=== PATIENT | female | born 1985 | race Caucasian/White ===

== ENCOUNTER 2023-09-12 08:09 | Outpatient (OUT) | payer OTHER, SELFPAY ==
--- NOTE | 2023-09-12 | XR_ITS ---
The [address] [address] Patient Name: ARY WRIGHT MRN: [id number] date: 1985 Sex: F Assigned Patient Location: Current Patient Location: Accession/Order Number: [id number] Exam Date: 09/12/2023 11:15 Report Date: 09/13/2023 05:08 At the request of: ELLIE THOMAS Procedure: XR foot CARL min 3V EXAMINATION: XR foot CARL min 3V HISTORY: BILATERAL FOOT PAIN COMPARISON: No relevant comparison available. FINDINGS: RIGHT FINDINGS: BONES: Prominent degenerative enthesopathic spurring at the Achilles tendon insertion into the calcaneus. Small plantar spur. No fracture, dislocation, bone lesion. 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 SOFT TISSUES: No visible soft tissue swelling. OTHER: Negative. LEFT FINDINGS: BONES: Prominent bunion formation. Small degenerative enthesophyte at Achilles tendon insertion into the calcaneus. 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 SOFT TISSUES: No visible soft tissue swelling. OTHER: Negative. XR/XR foot CARL min 3V IMPRESSION: RIGHT CONCLUSION: 1. Prominent degenerative enthesopathic spurring at Achilles tendon insertion which may account for patient's symptoms. LEFT CONCLUSION: 1. Prominent bunion formation. 2. Mild degenerative enthesopathic spurring. Electronically authenticated by: DIRK BEAVERS Date: 09/13/2023 05:08
== END 2023-09-12 08:10 | disposition home or self-care (01) ==
PROVIDERS: PCP Nurse Practitioner; Visit Provider Podiatrist Foot & Ankle Surgery
DX: M79.671 Pain in right foot (principal); M79.672 Pain in left foot; M77.8 Other enthesopathies, not elsewhere classified; M21.612 Bunion of left foot
CPT/HCPCS: 73630

== ENCOUNTER 2023-09-20 10:59 | Outpatient (OUT) | payer OTHER, SELFPAY ==
--- NOTE | 2023-09-20 11:01 | ECG_ITS ---
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
--- OUTSIDE RECORDS SUMMARY | 2023-09-20 11:09 | XMS_ITS | CCD ---
Author Organization [facility] Care Team Providers Care Ginseng Farmer Name Role Phone DR JOVAN PAT Consulting Unavailable ANGELY, DR JOVAN Caraballo Attending Unavailable PAT, DR JOVAN Caraballo Admitting Unavailable ANGELY, DR JOVAN Caraballo Primary Care Unavailable Mau Lacey. Primary Care Physician DONNA SCHROEDER Primary Care Unavailable MARIA FERNANDA CHRISTIANSEN Attending Unavailtrino MORRIS, BELKIS Attending Unavailable ANDREAS, BELKIS Referring Unavailable ALEXANDRE, DONNA Jordan Primary Care Unavailable ANDREAS, BELKIS Attending Unavailable MORRIS, BELKIS Referring Unavailable ALEXANDRE, DONNA Jordan Primary Care Unavailable Alexandre ROLLER INSPECTOR-MEDICAL CARE EVALUATION SPECIALIST, Donna Jordan Primary Care Provider DONNA SCHROEDER Referring Unavailable ALEXANDRE, DONNA Jordan Primary Care Unavailable JOVAN PAT Referring Unavailable ALEXANDRE, DONNA Jordan Primary Care Unavailable Alexandre, Donna Jordan Attending Unavailable Alexandre, Donna Jordan Admitting Unavailable Alexandre, Donna Jordan Attending Unavailable Alexandre, Donna Jordan Attending Unavailable Allergies Allergy Classification Reported Allergen(s) Allergy Type Date of Onset Reaction(s) Facility (3 sources) Codeine; Translations: [CODEINE] Drug Allergy 03-24-2023 [facility] Repository (1 source) Amoxicillin; Translations: [amoxicillin] Drug Allergy [facility] Repository Medications Current Medications Medication Drug Class(es) Dates Sig (Normalized) Sig (Original) 0.25 MG, 0.5 MG Dose 3 ML semaglutide 0.68 MG/ML Pen Injector (1 source) Start: 08-16-2022 inject 0.5 mg by subcutaneous injection every week semaglutide 2 mg/3 mL (0.25 mg or 0.5 mg dose) subcutaneous solution 0.5 mg, SubCutaneous, qWeek, # 3 mL, Refills(s) 0, Pharmacy: [facility]/pharmacy #[id number] Start Date: 08/16/22 Status: Ordered Albuterol (1 source) beta2-Adrenergic Agonist Start: 06-20-2022 take 2 puff(s) by inhalation every four hours Albuterol (Eqv-ProAir HFA) 2 puff(s), Inhalation, q4hr, Refill(s) 0 Start Date: 06/20/22 Status: Ordered calcium carbonate 1500 mg / cholecalciferol 0.01 mg oral tablet (1 source) Vitamin D Start: 03-30-2022 calcium carbonate-vitamin D3 (CALTRATE) 600 mg(1,500mg) -400 units per tablet hydroCHLOROthiazide 12.5 mg / losartan potassium 50 mg oral tablet (2 sources) Thiazide Diuretic, Angiotensin 2 Receptor Marie Start: 06-20-2022 take 1 tablet by mouth once daily hydrochlorothiazi de-losartan 12.5 mg-50 mg Tab 1 tab(s), Oral, Daily, Refill(s) 0 Start Date: 06/20/22 Status: Ordered take 1 tablet by arron th once in the morning losartan-hydroCHLOROthiazide (HYZAAR) 50 -12.5 mg per tablet Take 1 tablet by mouth in the morning. 0 Active levothyroxine sodium 0.1 mg oral tablet (2 sources) l-Thyroxine Start: 06-20-2022 take 1 tablet by mouth once daily levothyroxine 100 mcg (0.1 mg) Tab 100 mcg = 1 tab(s), Oral, Daily, Refills(s) 0 Start Date: 06/20/22 Status: Ordered take 1 tablet by mouth in the mo rning levothyroxine (SYNTHROID, LEVOTHROID) 100 MCG tablet Take 1 tablet (100 mcg total) by mouth in the morning. 0 Active PARoxetine hydrochloride 10 mg oral tablet (2 sources) Serotonin Reuptake Inhibitor Start: 06-21-2022 take 1 tablet by mouth once daily at bedtime PARoxetine (PAXIL) 10 mg tablet Indications: Anxiety and depression TAKE 1 TABLET BY MOUTH EVERYDAY AT BEDTIME 30 tablet 0 06/26/2022 Active 1 mg dose 1.5 ml semaglutide 1.34 mg/ml pen injector (2 sources) Start: 09-06-2022 inject 1 mg by subcutaneous injection every week Ozempic 2 mg/1.5 mL (1 mg dose) subcutaneous solution 1 mg, SubCutaneous, qWeek, 4 EA, Refill(s) 1, [facility]/pharmacy #[id number], 172.3, cm, 09/06/22 17:10:00 EDT, Height/Length Dosing, 92.2, kg, 09/06/22 17:10:00 EDT, Weight Dosing Start Date: 09/06/22 Status: Ordered semaglutide (OZE MPIC) 1 mg/dose (2 mg/1.5 mL) pen injector Inject 1 mg under the skin every 7 days. 0 Active Completed/Discontinued Medications Medication Drug Class(es) Dates Sig (Normalized) Sig (Original) 1 ml medroxyPROGESTERone acetate 150 mg/ml injection (4 sources) Progestin Start: 4 End: medroxyPROGESTERone (DEPO-PROVERA) injection 150 mg Start: 04-18-2023 End: 04-18-2023 medroxyPROGESTERone (DEPO-MI OVERA) injection 150 mg Start: 09-06-2022 inject 150 mg by int ramuscular injection every three months Depo-Provera 150mg/mL intramuscular suspension 150 mg, IntraMuscular, q3mo, Refills(s) 0 Start Date: 09/06/22 Status: Ordered medroxyPROGESTER one (DEPO-PROVERA) 150 mg/mL injection Inject 1 mL (150 mg total) into the appropriate muscle every 3 (three) months. 0 Active Problems Active Problems Problem Classification Problem Date Documented Date Episodic/Chronic Abdominal pain (1 source) Epigastric pain; Translations: [Epigastric pain] Onset: 03-24-2023 Episodic Acquired foot deformities (1 source) Talipes planus 06-23-2022 Episodic Contraceptive and procreative management (3 sources) Contraception ; Translations: [Encounter for surveillance of injectable contraceptive] Onset: 07-11-2023 04-18-2023 Episodic Diabetes mellitus without complication (2 sources) Type 2 diabetes mellitus 06-23-2022 Chronic Essential hypertension (1 source) Hypertensive disorder 06-23-2022 Chronic Headache; including migraine (1 source) Migraine 06-23-2022 Chronic Mood disorders (1 source) Reactive depression (situational) 06-23-2022 Chronic Nonspecific chest pain (3 sources) Chest pain, unspecified; Translations: [Chest pain] Onset: 03-24-2023 Episodic Other nervous system disorders (1 source) Carpal tunnel syndrome 06-23-2022 Chronic Other nervous system disorders (1 source) Cerebral cyst 06-23-2022 Chronic Other nutritional; endocrine; and metabolic disorders (1 source) Metabolic syndrome X 06-23-2022 Chronic Thyroid disorders (1 source) Hypothyroidism 06-23-2022 Chronic Unclassified (3 sources) CONTACT W/AND (SUSP) EXPOS COVID-19; Translations: [CONTACT W/AND (SUSP) EXPOS COVID-19] Onset: 10-31-2020 Unclassified (1 source) Patient encounter status 09-06-2022 Past or Other Problems Problem Classification Problem Date Documented Da te Episodic/Chronic Mood disorders (1 source) Mood disorders Onset: 11-13-2022 11-13-2022 Unclassified (1 source) CONTACT W/AND (SUSP) EXPOS COVID-19; Translations: [CONTACT W/AND (SUSP) EXPOS COVID-19] Onset: 10-12-2020 Unclassified (1 source) Onset: 11-13-2022 11-13-2022 Results Test Name Value Interpretation Reference Range Facility Ambulatory Visit Summaryon 0 08-31-2023 Ambulatory Visit Summary Ambulatory Visit Summary ARY WRIGHT :1985 Visit Date:08/31/2023 Ambulatory Visit Instructions Your Diagnosis BMI 36.0-36.9,adult Non-smoker Your Care Team Attending Physician - Donna Perla Primary Care Physician - Donna Perla This Is Your Medications List albuterol (Albuterol (Eqv-ProAir HFA) 90 mcg/inh inhalation aerosol) hydrochlorothiazide-los andi (hydrochlorothiazide-lo sartan 12.5 mg-50 mg Tab) levothyroxine (levothyroxine 100 mcg (0.1 mg) Tab) medroxyPROGESTERone (Depo-Provera 150mg/mL intramuscular suspension) paroxetine (paroxetine 10 mg Tab) semaglutide (Ozempic (1 mg dose) 4 mg/3 mL subcutaneous solution) semaglutide (Ozempic 2 mg/1.5 mL (1 mg dose) subcutaneous solution) semaglutide (semaglutide 2 mg/3 mL (0.25 mg or 0.5 mg dose) subcutaneous solution) Procedures Performed section. Discharge Vitals Heart Rate (Peripheral) 82 Respiratory Rate 18 Blood Pressure 128/88 Height 172.3 cm Height 68 in Weight 109.0 kg Weight 239.8 lb BMI 36.72 Medications What How Much When Why Instructions Unchanged albuterol (Albuterol (Eqv-ProAir HFA) 90 mcg/ inh inhalation aerosol) 2 Puffs Inhalation Every 4 hours Unchanged hydrochlorothiazide-los andi (hydrochlorothiazide-lo sartan 12.5 mg-50 mg Tab) 1 Tablets By Mouth Every day Unchanged levothyroxine (levothyroxine 100 mcg (0.1 mg) Tab) 1 Tablets By Mouth Every day Unchanged medroxyPROGESTERone (Depo-Provera 150mg/ mL intramuscular suspension) 150 Milligram Intramuscular Every 3 months Unchanged paroxetine (paroxetine 10 mg Tab) 1 Tablets By Mouth At bedtime Unchanged semaglutide (Ozempic (1 mg dose) 4 mg/ 3 mL subcutaneous solution) 1 Milligram Subcutaneous Every week Unchanged semaglutide (Ozempic 2 mg/ 1.5 mL (1 mg dose) subcutaneous solution) 1 Milligram Subcutaneous Every week Type 2 diabetes mellitus Metabolic syndrome BMI 31.0-31.9,adult Non-smoker Unchanged semaglutide (semaglutide 2 mg/ 3 mL (0.25 mg or 0.5 mg dose) subcutaneous solution) 0.5 Milligram Subcutaneous Every week Allergies No Known Allergies Problems Ongoing - Any problem that you are currently receiving treatment for. Carpal tunnel syndrome, bilateral Cerebral cysts Diabetes mellitus type II, controlled Hypertension Hypothyroidism Metabolic syndrome Migraines Pes planus Situational depression Type 2 diabetes mellitus Wellness examination Patient Survey You may receive a survey via text or e-mail asking about your office visit. Please share your experience with us by completing your survey. We appreciate your feedback and thank you for choosing us for your care. Normal [facility] Family Medicine Office/Clini c Noteon 08-31-2023 Family Medicine Office/Clinic Note Family Medicine Office/Clinic Note HPI Staff Ary is a 37 year old female presenting to discuss foot pain Pain characteristics: onset: 6 month Pain location: bilateral feet and heels right foot is worse, Arches and heels Intensity: 4/10 can go up to 6 or 7 out of 10 Medication used: Pain can be constant and intermittent , pain feels like stabbing, aching, pressure. Pt also has a bunion on left foot would like looked at, pt has never seen a book binder History of Present Illness pt presents today for bilateral foot pain Review of Systems PHQ Score Initial Depression Screen Score: 0 SCORE Physical Exam Vitals & Measurements HR: 82(Peripheral) RR: 18 BP: 128/88 HT: 68 in HT: 172.3 cm WT: 109.0 kg WT: 239.8 lb BMI: 36.72 General: alert, no acute distress ENMT: oral mucosa moist, no pharyngeal erythema or exudate Cardiovascular: regular rate and rhythm, normal peripheral perfusion Respiratory: Lungs CTA, respirations non labored Extremities: no deformity, no trauma Neurological: oriented x 4, LOC appropriate for age, CN II-XII intact, motor strength equal & normal bilaterally, speech normal bunion noted on left great toe laterally Assessment/Plan 1. Bunion of left foot (M21.612: Bunion of left foot) bunion is causing pain now. will send referral to book binder. Ordered: [facility] External Ambulatory Referral 2. Heel pain, bilateral (M79.671: Pain in right foot) both heels are painful especially when on her feet for a while. Ordered: [facility] External Ambulatory Referral 3. Pain in left foot (M79.672: Pain in left foot) bunion is now painful on left foot. has had it for years but now it's bothering her Ordered: [facility] External Ambulatory Referral 4. Diabetes mellitus type II, controlled (E11.9: Type 2 diabetes mellitus without complications) will increase ozempic Ordered: semaglutide, 1 mg, SubCutaneous, qWeek, 4 EA, Refill(s) 1, [id number], 172.3, cm, 09/06/22 17:10:00 EDT, Height/Length Dosing, 92.2, kg, 09/06/22 17:10:00 EDT, Weight Dosing [facility] External Ambulatory Referral 5. BMI 36.0-36.9,adult (Z68.36: Body mass index [BMI] 36.0-36.9, adult) BMI education given Ordered: [facility] External Ambulatory Referral 6. Non-smoker (Z78.9: Other specified health status) continue not smoking Ordered: semaglutide, 1 mg, SubCutaneous, qWeek, 4 EA, Refill(s) 1, [id number], 172.3, cm, 09/06/22 17:10:00 EDT, Height/Length Dosing, 92.2, kg, 09/06/22 17:10:00 EDT, Weight Dosing Orders: semaglutide, 1.7 mg, SubCutaneous, qWeek, # 12 EA, Refills(s) 1, Pharmacy: [facility]/pharmacy #[id number], 172.3, cm, 08/31/23 10:09:00 EDT, Height/Length Dosing, 109, kg, 08/31/23 10:09:00 EDT, Weight Dosing Follow-up No qualifying data available Problem List/Past Medical History Ongoing Bunion of left foot Carpal tunnel syndrome, bilateral Cerebral cysts Diabetes mellitus type II, controlled Heel pain, bilateral Hypertension Hypothyroidism Metabolic syndrome Migraines Pes planus Situational depression Type 2 diabetes mellitus Wellness examination Historical No qualifying data Procedure/Surgical History section. Medications Albuterol (Eqv-ProAir HFA) 90 mcg/inh inhalation aerosol, 2 puff(s), Inhalation, q4hr, 1 refills Depo-Provera 150mg/mL intramuscular suspension, 150 mg, IntraMuscular, q3mo hydrochlorothiazide-los andi 12.5 mg-50 mg Tab, 1 tab(s), Oral, Daily, 1 refills levothyroxine 100 mcg (0.1 mg) Tab, 100 mcg= 1 tab(s), Oral, Daily, 1 refills paroxetine 10 mg Tab, 10 mg= 1 tab(s), Oral, Bedtime, 3 refills semaglutide 1.7 mg/0.75 mL (1.7 mg dose) subcutaneous solution, 1.7 mg, SubCutaneous, qWeek, 1 refills Allergies No Known Allergies Social History Tobacco Never (less than 100 in lifetime) Tobacco Use:. Never Smokeless Tobacco Use:. Household tobacco concerns: No., 08/31/2023 Immunizations Vaccine Date Status Comments SARS-CoV-2 (COVID-19) mRNA-1273 vaccine 01/10/2021 Recorded 2022-09-06: TPVAL SARS-CoV-2 (COVID-19) mRNA-1273 vaccine 05/21/2020 Recorded 2022-09-06: TPV23 SARS-CoV-2 (COVID-19) mRNA-1273 vaccine 04/21/2020 Recorded 2022-09-06: TPV23 influenza virus vaccine, inactivated 01/25/2019 Recorded diphtheria/pertussis, acel/tetanus adult 03/17/2013 Recorded measles/mumps/rubella virus vaccine 03/17/2013 Recorded influenza virus vaccine, inactivated 03/17/2013 Recorded diphtheria/pertussis, acel/tetanus adult 06/19/2010 Recorded measles/mumps/rubella virus vaccine 04/14/1999 Recorded measles/mumps/rubella virus vaccine 09/30/1990 Recorded Hib, unspecified formulation 09/30/1990 Recorded Normal [facility] Comment on above: Result Comment: Elec tronically Signed By: Alexandre ESPINAL, Donna Jordan\.br\Date and Time Signed: 08/31/23 10:57 EDT Pre-Certification Formon Pre-Certification Form [id number] FF [facility] Pre-Certification Formon Pre-Certification Form [id number] IFF [facility] CBC AND AUTO DIFFon 03-24-19 ABSOLUTE BASOPHIL 0.1 X10E9/L Normal 0.0-0.2 [facility] Comment on above: Performed By: #### C LIMA CMP, 3040-3, 87389-1, 73329-9, 30236- 5, THYR #### [facility] ([id number]) [address] [place] [address] 51091 ABSOLUTE NEUTROPHIL 3.6 X10E9/L Normal 1.5-6.6 [facility] Comment on above: Performed By: #### C BCA CMP, 3040-3, 81745-8, 62212-0, 22662- 5, THYR #### [facility] ([id number]) [address] [place] [address] 88504 Basophils/100 WBC (Bld) 0.9 % Normal [facility] Comment on above: Performed By: #### C BCA, CMP, 3040-3, 59276-5, 33174-1, 87004- 5, THYR #### [facility] ([id number]) [address] [place] [address] 11665 Eosinophils (Bld) [#/Vol] 0.1 10*3/uL Normal 0.0-0.4 [facility] Comment on above: Performed By: #### C BCA, CMP, 3040-3, 18206-5, 55981-8, 44366- 5, THYR #### [facility] ([id number]) [address] [place] [address] 68370 Eosinophils/100 WBC (Bld) 2.5 % Normal [facility] Comment on above: Performed By: #### C BCA, CMP, 3040-3, 86848-6, 55245-8, 59486- 5, THYR #### [facility] ([id number]) [address] [place] [address] 30961 Erythrocyte distribution width (RBC) [Ratio] 12.7 % Normal 11.5-15.0 [facility] Comment on above: Performed By: #### C BCA, CMP, 3040-3, 67078-5, 63688-4, 73687- 5, THYR #### [facility] ([id number]) [address] [place] [address] 27380 Hematocrit (Bld) [Volume fraction] 43.1 % Normal 35-47 [facility] Comment on above: Performed By: #### C BCA, CMP, 3040-3, 08294-7, 66340-6, 82988- 5, THYR #### [facility] ([id number]) [address] [place] [address] 12936 Hemoglobin (Bld) [Mass/Vol] 14.7 g/dL Normal 11.7-15.5 [facility] Comment on above: Performed By: #### C BCA, CMP, 3040-3, 21455-3, 64656-7, 93120- 5, THYR #### [facility] ([id number]) [address] [place] [address] 27802 Lymphocytes (Bld) [#/Vol] 1.3 10*3/uL Normal 1.0-3.5 [facility] Comment on above: Performed By: #### C BCA, CMP, 3040-3, 01885-8, 82755-6, 80845- 5, THYR #### [facility] ([id number]) [address] [place] [address] 43110 Lymphocytes/100 WBC (Bld) 22.8 % Normal [facility] Comment on above: Performed By: #### C BCA, CMP, 3040-3, 86656-6, 34596-9, 74527- 5, THYR #### [facility] ([id number]) [address] [place] [address] 29268 MCH (RBC) [Entitic mass] 32.9 pg Normal 27-34 [facility] Comment on above: Performed By: #### C BCA, CMP, 3040-3, 27686-8, 09335-3, 56626- 5, THYR #### [facility] ([id number]) [address] [place] [address] 47457 MCHC (RBC) [Mass/Vol] 34.1 g/dL Normal 32-36 [facility] Comment on above: Performed By: #### C BCA, CMP, 3040-3, 71922-4, 75330-0, 27482- 5, THYR #### [facility] ([id number]) [address] [place] [address] 47924 MCV (RBC) [Entitic vol] 97 fL Normal 80-100 [facility] Comment on above: Performed By: #### C BCA, CMP, 3040-3, 06939-3, 58430-8, 85164- 5, THYR #### [facility] ([id number]) [address] [place] [address] 87390 Monocytes (Bld) [#/Vol] 0.6 10*3/uL Normal 0-0.9 [facility] Comment on above: Performed By: #### C BCA, CMP, 3040-3, 53098-9, 00984-9, 90890- 5, THYR #### [facility] ([id number]) [address] [place] [address] 48582 Monocytes/100 WBC (Bld) 10.4 % Normal [facility] Comment on above: Performed By: #### C BCA, CMP, 3040-3, 20438-6, 24954-4, 28073- 5, THYR #### [facility] ([id number]) [address] [place] [address] 59078 Neutrophils/100 WBC (Bld) 63.4 % Normal [facility] Comment on above: Performed By: #### C BCA, CMP, 3040-3, 36505-7, 61276-2, 83382- 5, THYR #### [facility] ([id number]) [address] [place] [address] 54150 Platelet mean volume (Bld) [Entitic vol] 8.1 fL Normal 7-12 [facility] Comment on above: Performed By: #### C BCA, CMP, 3040-3, 40305-7, 72710-1, 15135- 5, THYR #### [facility] ([id number]) [address] [place] [address] 63610 Platelets (Bld) [#/Vol] 269 10*3/uL Normal 150-450 [facility] Comment on above: Performed By: #### Amari BCA, CMP, 3040-3, 19478-5, 13278-0, 67688- 5, THYR #### [facility] ([id number]) [address] [place] [address] 98179 RBC COUNT 4.46 X10E12/L Normal 3.80-5.20 [facility] Comment on above: Performed By: #### C BCA, CMP, 3040-3, 22712-8, 82580-6, 83557- 5, THYR #### [facility] ([id number]) [address] [place] [address] 86533 WBC (Bld) [#/Vol] 5.7 10*3/uL Normal 4.0-11.0 [facility] Comment on above: Performed By: #### C BCA, CMP, 3040-3, 95440-8, 26745-5, 60742- 5, THYR #### [facility] ([id number]) [address] [place] [address] 47842 COMPREHENSIVE METABOLIC PANE Jd 03-24-2023 Albumin [Mass/Vol] 4.8 g/dL Normal 3.2-5.3 [facility] Comment on above: Performed By: #### C BCA, CMP, 3040-3, 08868-9, 74824-2, 58410- 5, THYR #### [facility] ([id number]) [address] [place] [address] 16976 ALP [Catalytic activity/Vol] 54 U/L Normal 39-130 [facility] Comment on above: Performed By: #### C BCA, CMP, 3040-3, 88588-9, 15235-6, 77393- 5, THYR #### [facility] ([id number]) [address] [place] [address] 33273 ALT [Catalytic activity/Vol] 24 U/L Normal 0-31 [facility] Comment on above: Performed By: #### C BCA, CMP, 3040-3, 39189-8, 14711-1, 01840- 5, THYR #### [facility] ([id number]) [address] [place] [address], [place] [address] Anion gap [Moles/Vol] 10 mmol/L Normal 5-15 [facility] Comment on above: Performed By: #### C BCA, CMP, 3040-3, 07316-1, 30166-0, 24629- 5, THYR #### [facility] ([id number]) [address] [place] [address] 68062 AST [Catalytic activity/Vol] 21 U/L Normal 0-41 [facility] Comment on above: Performed By: #### C BCA, CMP, 3040-3, 27899-0, 47667-4, 52864- 5, THYR #### [facility] ([id number]) [address] [place] [address] 66640 Bilirubin [Mass/Vol] 0.9 mg/dL Normal 0.3-1.2 [facility] Comment on above: Performed By: #### C BCA, CMP, 3040-3, 85303-7, 07011-1, 63579- 5, THYR #### [facility] ([id number]) [address] [place] [address] 56112 Calcium [Mass/Vol] 9.0 mg/dL Normal 8.5-10.5 [facility] Comment on above: Performed By: #### C BCA, CMP, 3040-3, 48788-7, 38996-5, 68232- 5, THYR #### [facility] ([id number]) [address] [place] [address] 73148 Chloride [Moles/Vol] 106 mmol/L Normal 98-109 [facility] Comment on above: Performed By: #### C BCA, CMP, 3040-3, 20055-1, 85170-3, 93565- 5, THYR #### [facility] ([id number]) [address] [place] [address] 78026 CO2 [Moles/Vol] 23 mmol/L Normal 22-32 [facility] Comment on above: Performed By: #### C BCA, CMP, 3040-3, 28834-7, 62339-5, 18492- 5, THYR #### [facility] ([id number]) [address] [place] [address] 41242 Creatinine [Mass/Vol] 0.87 mg/dL Normal 0.40-1.00 [facility] Comment on above: Result Comment: METH OD TRACEABLE TO IDMS STANDARD Performed By: #### C BCA, CMP, 3040-3, 95785-5, 60454-2, 98969-6, THYR #### [facility] ([id number]) [address] [place] [address] 50727 GFR/1.73 sq M.predicted among non-blacks MDRD (S/P/Bld) [Vol rate/Area] 89 mL/min/{1.73_m2} Normal >59 [facility] Comment on above: Result Comment: Reported eGFR is based on the CKD-EPI 2020 equation that does not use a race coefficient. Performed By: #### C BCA, CMP, 3040-3, 00176-8, 69109-8, 73559-2, THYR #### [facility] ([id number]) [address] [place] [address] 82557 Glucose [Mass/Vol] 105 mg/dL High 65-99 [facility] Comment on above: Performed By: #### C BCA, CMP, 3040-3, 59752-2, 95320-6, 38266- 5, THYR #### [facility] ([id number]) [address] [place] [address] 81095 Potassium [Moles/Vol] 3.8 mmol/L Normal 3.5-5.0 [facility] Comment on above: Performed By: #### C BCA, CMP, 3040-3, 93018-3, 47082-1, 52136- 5, THYR #### [facility] ([id number]) [address] [place] [address] 05888 Protein [Mass/Vol] 7.7 g/dL Normal 6.0-8.0 [facility] Comment on above: Performed By: #### C BCA, CMP, 3040-3, 89371-6, 50616-6, 86310- 5, THYR #### [facility] ([id number]) [address] [place] [address] 65778 Sodium [Moles/Vol] 139 mmol/L Normal 134-146 [facility] Comment on above: Performed By: #### C BCA, CMP, 3040-3, 43967-8, 04629-5, 73862- 5, THYR #### [facility] ([id number]) [address] [place] [address] 52333 Urea nitrogen [Mass/Vol] 12 mg/dL Normal 5-23 [facility] Comment on above: Performed By: #### C BCA, CMP, 3040-3, 75727-0, 05736-8, 31262- 5, THYR #### [facility] ([id number]) [address] [place] [address] ABDOMEN AND PELVIS W CONT on 03-24-2023 CT ABDOMEN AND PELVIS W CONT CT ABDOMEN AND PELVIS W CONT CT ABDOMEN AND PELVIS HISTORY: Epigastric pain COMPARISON STUDY: CT 02/06/2012. TECHNIQUE: CT scan of the abdomen and pelvis performed with IV no oral contrast. 100 mL of Omnipaque 300 was injected intravenously without complication. Coronal and sagittal reformats generated and reviewed. FINDINGS: LOWER THORAX: Unremarkable. HEPATOBILIARY: Slight focal fatty changes are noted anteriorly near the fissure for the falciform ligament, no suspicious hepatic mass. No biliary ductal dilatation. Gallbladder is normal. SPLEEN: Unremarkable. PANCREAS: No focal masses or ductal dilatation. ADRENALS: No adrenal nodules. KIDNEYS/URETERS: No collecting system dilatation, stones, or solid mass lesions. GI TRACT: No bowel obstruction. What appears to be very tiny appendix is normal. Colonic diverticulosis without inflammatory change. PELVIC ORGANS/BLADDER: Unremarkable. PERITONEUM/RETROPERITON EUM: No free air or fluid. LYMPH NODES: No enlarged lymph nodes. VESSELS: No abdominal aortic aneurysm. BONES AND SOFT TISSUES: No suspicious osseous lesion. IMPRESSION: 1. No acute abnormality All CT scans at this facility use dose modulation, iterative reconstruction, and/or weight based dosing when appropriate to reduce radiation dose to as low as reasonably achievable. Finalized by Jax Mitchell MD on 03/24/2023 11:09 AM Normal [facility] Fibrin D-dimer DDU (PPP) [Ma ss/Vol]on 03-24-2023 D DIMER <150 Normal <255 [facility] Comment on above: Result Comment: Results <255 ng/mL DDU: The presence of a VTE can safely be excluded with a negative D-Dimer result and Wells score. A negative result doesn't exclude the possibility of DIC. The test be repeated along with other diagnostic tests if the patient's symptoms persist or worsen. [email or web address] Performed By: #### C JORGE AMATO, 3040-3, 06161-3, 92107-8, 72143-5, THYR #### [facility] ([id number]) [address] [place] [address] HCG ( test) Ql (U)o n 03-24-2023 Beta HCG ( test) Ql (U) Negative Normal NEG [facility] Comment on above: Performed By: #### C JORGE AMATO, 3040-3, 94375-1, 83545-3, 58468- 5, THYR #### [facility] ([id number]) [address] [place] [address] LIPASEon 03-24-2023 Lipase [Catalytic activity/Vol] 44 U/L High 17-40 [facility] Comment on above: Performed By: #### C BCA, CMP, 3040-3, 83168-2, 44467-5, 77816- 5, THYR #### [facility] ([id number]) [address] [place] [address] MAGNESIUMon 03-24-2023 Magnesium [Mass/Vol] 2.1 mg/dL Normal 1.8-2.6 [facility] Comment on above: Performed By: #### C BCA, CMP, 3040-3, 39035-9, 01400-6, 00798- 5, THYR #### [facility] ([id number]) [address] [place] [address] 795[address] THYROID PROFILEon 03-24-2023 Free T4 [Mass/Vol] 0.88 ng/dL Normal 0.61-1.60 [facility] Comment on above: Performed By: #### C BCA, CMP, 3040-3, 80326-9, 94025-1, 46756- 5, THYR #### [facility] ([id number]) [address] [place] [address]508 TSH 1.29 uIU/mL Normal 0.49-4.67 [facility] Comment on above: Performed By: #### C BCA, CMP, 3040-3, 71770-6, 42607-1, 35165- 5, THYR #### [facility] ([id number]) [address] [place] [address] 46942 TROPONIN Ion 03-24-2023 Troponin I.cardiac [Mass/Vol] ng/mL Normal 0.00-0.04 [facility] Comment on above: Performed By: #### C BCA, CMP, 3040-3, 60878-7, 32436-5, 97383- 5, THYR #### [facility] ([id number]) [address] [place] [address]9766 URN MACROSCOPIC NURon 2023 BILIRUBIN ANNE Negative Normal NEG [facility] Comment on above: Performed By: #### N UM #### [facility] ([id number]) [address] [place] [address], [place] [address] BLOOD/HGB ANNE Negative Normal NEG [facility] Comment on above: Performed By: #### N UM #### [facility] ([id number]) [address] [place] [address], [place] [address] GLUCOSE ANNE Negative Normal NEG [facility] Comment on above: Performed By: #### N UM #### [facility] ([id number]) [address] [place] [address], [place] [address] KETONES ANNE Negative Normal NEG [facility] Comment on above: Performed By: #### N UM #### [facility] ([id number]) [address] [place] [address] [place] [address] LEUKOCYTE ESTERASE ANNE Negative Normal NEG [facility] Comment on above: Performed By: #### N UM #### [facility] ([id number]) [address] [place] [address], [place] [address] NITRITE ANNE Negative Normal NEG [facility] Comment on above: Performed By: #### N UM #### [facility] ([id number]) [address] [place] [address] [place] [address] PH ANNE 5.5 Normal 5.0-8.5 [facility] Comment on above: Performed By: #### N UM #### [facility] ([id number]) [address] [place] [address] [place] [address] PROTEIN ANNE Negative Normal NEG [facility] Comment on above: Performed By: #### N UM #### [facility] ([id number]) [address] [place] [address], [place] [address] SPECIFIC GRAVITY ANNE 1.010 Normal 1.003-1.035 [facility] Comment on above: Performed By: #### N UM #### [facility] ([id number]) [address] [facility], [place] [address] UROBILINOGEN ANNE 0.2 eu/dL Normal <1.[address] [facility] Comment on above: Performed By: #### N #### [facility] ([id number]) [address] [facility], [place] [address] XR CHEST 1 VWon 03-24-2023 XR CHEST 1 VW XR CHEST 1 VW XR CHEST 1 VW: 03/24/2023 10:34 AM Clinical: Chest pain for one week. Upright portable chest is compared with 03/05/2017. Exam limited by low lung volumes. Heart size is normal. No acute consolidation, large effusion, or pneumothorax. IMPRESSION: * No acute disease to limits of this portable exam. Finalized by Mario Pinto MD on 03/24/2023 10:39 AM Normal [facility] Reminderson 09-08-2022 Reminders - From: Donna Perla To: [facility] - Clinical; Sent: 09/08/2022 07:38:15 EDT Show up: 09/08/2022 07:38:00 EDT Subject: Ambulatory Reminder Due Date/Time: 09/09/2022 07:37:00 EDT Let pt know her labs were all normal. [id number] is 5.3 Results: Date Result Name Ind Value Ref Range 09/06/2022 17:35 WBC 5.9 E9/L (4.0 - 11.0) 09/06/2022 17:35 RBC ((L)) 4.2 E12/L (4.3 - 5.9) 09/06/2022 17:35 HGB 14.0 gm/dL (12.0 - 16.0) 09/06/2022 17:35 Hct 43.4 % (34.0 - 46.0) 09/06/2022 17:35 MCV ((H)) 102.8 fL (80.0 - 100.0) 09/06/2022 17:35 MCH 33.3 pg (27.0 - 34.0) 09/06/2022 17:35 MCHC 32.4 gm/dL (31.4 - 36.0) 09/06/2022 17:35 RDW ((H)) 14.4 % (10.9 - 14.2) 09/06/2022 17:35 Platelet 264.0 E9/L (150.0 - 500.0) 09/06/2022 17:35 MPV 9.3 fL (6.4 - 10.8) 09/06/2022 17:35 Neutro Auto 61.7 % (36.0 - 75.0) 09/06/2022 17:35 Lymph Auto 30.1 % (14.0 - 50.0) 09/06/2022 17:35 Castro Auto 6.5 % (4.0 - 14.0) 09/06/2022 17:35 Eos Auto 0.9 % (0.0 - 8.0) 09/06/2022 17:35 Basophil Auto 0.8 % (0.0 - 2.0) 09/06/2022 17:35 Neutro Absolute 3.6 E9/L (2.0 - 7.5) 09/06/2022 17:35 Lymph Absolute 1.8 E9/L (1.0 - 4.0) 09/06/2022 17:35 Castro Absolute 0.4 E9/L (0.2 - 1.0) 09/06/2022 17:35 Eos Absolute 0.1 E9/L (0.0 - 0.5) 09/06/2022 17:35 Basophil Absolute 0.0 E9/L (0.0 - 0.2) 09/06/2022 17:35 Glucose Lvl 106 mg/dL (55 - 199) 09/06/2022 17:35 BUN 10 mg/dL (5 - 21) 09/06/2022 17:35 Creatinine 0.8 mg/dL (0.5 - 1.3) 09/06/2022 17:35 eGFR 99 mL/min/1.73 m2 (>=59 - ) 09/06/2022 17:35 BUN/Creat Ratio 12 (10 - 20) 09/06/2022 17:35 Sodium Lvl 139 mmol/L (135 - 145) 09/06/2022 17:35 Potassium Lvl 3.6 mmol/L (3.5 - 5.3) 09/06/2022 17:35 Chloride 109 mmol/L (101 - 111) 09/06/2022 17:35 CO2 23 mmol/L (21 - 31) 09/06/2022 17:35 AGAP 11 mEq/L (6 - 16) 09/06/2022 17:35 Calcium Lvl 9.1 mg/dL (8.9 - 11.1) 09/06/2022 17:35 Alk Phos 41 Int._Unit/L (21 - 98) 09/06/2022 17:35 ALT 27 Int._Unit/L (6 - 46) 09/06/2022 17:35 AST 25 Int._Unit/L (5 - 43) 09/06/2022 17:35 Total Protein 7.0 gm/dL (6.0 - 7.8) 09/06/2022 17:35 Albumin Lvl 4.3 gm/dL (3.3 - 5.0) 09/06/2022 17:35 Globulin 2.7 gm/dL (1.4 - 4.0) 09/06/2022 17:35 A/G Ratio 1.6 (1.1 - 2.2) 09/06/2022 17:35 Bili Total 0.8 mg/dL (0.0 - 1.1) 09/06/2022 17:35 Hgb A1C % 5.3 % ( - <=5.9) 09/06/2022 17:35 Chol 133 mg/dL (120 - 200) 09/06/2022 17:35 Trig 41 mg/dL ( - <=149) 09/06/2022 17:35 HDL 60 mg/dL 09/06/2022 17:35 LDL Direct 59 mg/dL ( - <=129) 09/06/2022 17:35 VLDL 8 mg/dL (7 - 40) 09/06/2022 17:35 TSH 0.74 mcIU/mL (0.34 - 5.60) notified patient of message below Normal [facility] Auto Diffon 09-07-2022 Basophils/100 WBC (Bld) 0.8 % Normal 0.0-2.0 [facility] Comment on above: Order Comment: Order Added by Discern Expert. Performed By: #### 2 134419, 8450862, 8431035, 6953633, 562915075, 8346443, 50816217 #### [facility] [address] [place] [address] Basophils/Leukocyt es Auto (Bld) [Pure # fraction] 0.0 E9/L Normal 0.0-0.2 [facility] Comment on above: Order Comment: Order Added by Discern Expert. Performed By: #### 2 917911, 6913964, 0984687, 0232110, 086447678, 3523662, 00365830 #### [facility] [address] [place] [address] 25819 Eosinophils/100 WBC (Bld) 0.9 % Normal 0.0-8.0 [facility] Comment on above: Order Comment: Order Added by Discern Expert. Performed By: #### 2 870350, 1089842, 0558226, 9728588, 248780473, 9232161, 59426740 #### [facility] [address] [place] [address] 47103 Eosinophils/Leukoc ytes Auto (Bld) [Pure # fraction] 0.1 E9/L Normal 0.0-0.5 [facility] Comment on above: Order Comment: Order Added by Discern Expert. Performed By: #### 2 613769, 4884026, 6763428, 3022433, 513440061, 6681652, 13122962 #### [facility] [address] [place] [address] 23582 Lymphocytes/100 WBC (Bld) 30.1 % Normal 14.0-50.0 [facility] Comment on above: Order Comment: Order Added by Discern Expert. Performed By: #### 2 978902, 2880752, 5389088, 9001191, 096625120, 4758626, 81159251 #### [facility] [address] [place] [address] 92768 Lymphocytes/Leukoc ytes Auto (Bld) [Pure # fraction] 1.8 E9/L Normal 1.0-4.0 [facility] Comment on above: Order Comment: Order Added by Discern Expert. Performed By: #### 2 702695, 0793474, 5114165, 9473790, 674361684, 9052059, 33413222 #### [facility] [address] [place] [address] Monocytes/100 WBC (Bld) 6.5 % Normal 4.0-14.0 [facility] Comment on above: Order Comment: Order Added by Discern Expert. Performed By: #### 2 723152, 6932571, 8222534, 9253508, 845606609, 1722148, 09903021 #### [facility] [address] [place] [address] 20335 Monocytes/Leukocyt es Auto (Bld) [Pure # fraction] 0.4 E9/L Normal 0.2-1.0 [facility] Comment on above: Order Comment: Order Added by Shira Expert. Performed By: #### 2 761487, 4941831, 7182016, 3903914, 404716285, 0116800, 68759991 #### [facility] [address] [place] [address]15 Neutrophils/100 WBC (Bld) 61.7 % Normal 36.0-75.0 [facility] Comment on above: Order Comment: Order Added by Shira Expert. Performed By: #### 2 430966, 8093290, 7455935, 0567727, 491158056, 4892393, 99506974 #### [facility] [address] [place] [address] Neutrophils/Leukoc ytes Auto (Bld) [Pure # fraction] 3.6 E9/L Normal 2.0-7.5 [facility] Comment on above: Order Comment: Order Added by Shira Expert. Performed By: #### 2 883673, 3506268, 4649819, 3855294, 098301428, 6214623, 58802138 #### [facility] [address] [place] [address] 38937 CBC w/ Auto Diffon 3 Erythrocyte distribution width (RBC) [Ratio] 14.4 % High 10.9-14.2 [facility] Comment on above: Performed By: #### 2 417472, 7193397, 0893691, 4701781, 418194829, 3766529, 65872721 #### [facility] [address] [place] [address] Hematocrit (Bld) [Volume fraction] 43.4 % Normal 34.0-46.0 [facility] Comment on above: Performed By: #### 2 803173, 6179409, 4576725, 8797839, 653898497, 5335922, 02881567 #### [facility] [address] [place] [address] Hemoglobin (Bld) [Mass/Vol] 14.0 g/dL Normal 12.0-16.0 [facility] Comment on above: Performed By: #### 2 687115, 3084507, 9367263, 1878824, 121436698, 0997059, 75228042 #### [facility] [address] [place] [address] MCH (RBC) [Entitic mass] 33.3 pg Normal 27.0-34.0 [facility] Comment on above: Performed By: #### 2 448018, 9739771, 6030169, 2714061, 552915342, 3764896, 17486179 #### [facility] [address] [place] [address] MCHC (RBC) [Mass/Vol] 32.4 g/dL Normal 31.4-36.0 [facility] Comment on above: Performed By: #### 2 233562, 0850381, 1167860, 9026931, 935635942, 7188438, 90309801 #### [facility] [address] [place] [address] MCV (RBC) [Entitic vol] 102.8 fL High 80.0-100.0 [facility] Comment on above: Performed By: #### 2 415820, 0919143, 2798571, 0907729, 138663558, 8490345, 43332552 #### [facility] [address] [place] [address] 62884 Platelet mean volume (Bld) [Entitic vol] 9.3 fL Normal 6.4-10.8 [facility] Comment on above: Performed By: #### 2 467463, 6968265, 3823254, 1901505, 965227741, 3736054, 15867450 #### [facility] [address] [place] [address] 89029 Platelets (Bld) [#/Vol] 264.0 E9/L Normal 150.0-500.0 [facility] Comment on above: Performed By: #### 2 719035, 5691168, 8441348, 7494014, 868063419, 0299232, 44377311 #### [facility] [address] [place] [address]476 RBC (Bld) [#/Vol] 4.2 E12/L Low 4.3-5.9 [facility] Comment on above: Performed By: #### 2 490589, 6739614, 1451625, 6241123, 209708180, 5838731, 31007724 #### [facility] [address] [place] [address]326 WBC corrected for nucl RBC Auto (Bld) [#/Vol] 5.9 E9/L Normal 4.0-11.0 [facility] Comment on above: Performed By: #### 2 505257, 9331547, 2492113, 2753239, 131582777, 2202576, 77633728 #### [facility] [address] [place] [address]22[address] CMPon 09-07-2022 Albumin [Mass/Vol] 4.3 g/dL Normal 3.3-5.0 [facility] Comment on above: Performed By: #### 2 853964, 6998417, 6898894, 9939777, 429631359, 6515542, 11098606 #### [facility] [address] [place] [address] Albumin/Globulin (S) [Mass conc ratio] 1.6 Normal 1.1-2.2 [facility] Comment on above: Performed By: #### 2 818136, 3687996, 4593868, 7891568, 432781099, 1048225, 72887181 #### [facility] [address] [place] [address] ALP [Catalytic activity/Vol] 41 Int._Unit/L Normal 21-98 [facility] Comment on above: Performed By: #### 2 532127, 4755389, 0023492, 1868610, 658145994, 3319483, 40204663 #### [facility] [address] [place] [address] ALT No additional P-5'-P [Catalytic activity/Vol] 27 Int._Unit/L Normal 6-46 [facility] Comment on above: Performed By: #### 2 277067, 5831228, 2881728, 9811063, 253433344, 3947846, 54627397 #### [facility] [address] [place] [address] Anion gap [Moles/Vol] 11 mmol/L Normal 6-16 [facility] Comment on above: Performed By: #### 2 652602, 0142117, 8781365, 2632875, 828145220, 3372606, 58080088 #### [facility] [address] [place] [address] AST [Catalytic activity/Vol] 25 Int._Unit/L Normal 5-43 [facility] Comment on above: Performed By: #### 2 859950, 1973735, 9500210, 4124839, 564905420, 9980599, 58869058 #### [facility] [address] [place] [address] Bilirubin [Mass/Vol] 0.8 mg/dL Normal 0.0-1.1 [facility] Comment on above: Performed By: #### 2 836993, 6253474, 3755389, 0184903, 191392655, 1062855, 54118621 #### [facility] [address] [place] [address] Calcium [Mass/Vol] 9.1 mg/dL Normal 8.9-11.1 [facility] Comment on above: Performed By: #### 2 164233, 0689518, 9769036, 3080683, 521670955, 0546499, 99176281 #### [facility] [address] [place] [address] Chloride [Moles/Vol] 109 mmol/L Normal 101-111 [facility] Comment on above: Performed By: #### 2 957614, 0578307, 0185792, 0128056, 619636263, 0594696, 88457276 #### [facility] [address] [place] [address] CO2 [Moles/Vol] 23 mmol/L Normal 21-31 [facility] Comment on above: Performed By: #### 2 893562, 5055082, 1373737, 9051345, 748579444, 6465941, 68978036 #### [facility] [address] [place] [address] Creatinine [Mass/Vol] 0.8 mg/dL Normal 0.5-1.3 [facility] Comment on above: Performed By: #### 2 728732, 4708665, 3557089, 1609822, 460883702, 0582031, 10272105 #### [facility] [address] [place] [address] Globulin (S) [Mass/Vol] 2.7 g/dL Normal 1.4-4.0 [facility] Comment on above: Performed By: #### 2 202291, 2396819, 3971232, 5650060, 150824363, 1522676, 99884086 #### [facility] [address] [place] [address] Glucose [Mass/Vol] 106 mg/dL Normal 55-199 [facility] Comment on above: Result Comment: If t his glucose result represents a fasting glucose, interpretation should refer to the following reference range: 55-99 mg/dL Performed By: #### 2 345400, 6533993, 4605140, 9810302, 216926875, 3499652, 30760242 #### [facility] [address] [place] [address] Potassium [Moles/Vol] 3.6 mmol/L Normal 3.5-5.3 [facility] Comment on above: Performed By: #### 2 021768, 8255965, 0054006, 0700880, 751554884, 4883796, 23162313 #### [facility] [address] [place] [address] Protein [Mass/Vol] 7.0 g/dL Normal 6.0-7.8 [facility] Comment on above: Performed By: #### 2 724186, 6694445, 4682957, 7463052, 137394690, 0964486, 16049354 #### [facility] [address] [place] [address] Sodium [Moles/Vol] 139 mmol/L Normal 135-145 [facility] Comment on above: Performed By: #### 2 503957, 2950434, 6118497, 9958924, 522862961, 0397839, 47866012 #### [facility] [address] [place] [address] Urea nitrogen [Mass/Vol] 10 mg/dL Normal 5-21 [facility] Comment on above: Performed By: #### 2 804625, 6325761, 3231829, 9287881, 944178818, 3064608, 93080954 #### [facility] [address] [place] [address] Urea nitrogen/Creatinin e [Mass ratio] 12 No Units Normal 10-20 [facility] Comment on above: Performed By: #### 2 259528, 8855077, 1741353, 0694038, 708127390, 7224230, 22480303 #### [facility] [address] [place] [address] ThnN8tia 09-07-2022 HbA1c (Bld) [Mass fraction] 5.3 % Normal <=5.9 [facility] Comment on above: Performed By: #### 2 115314, 9489592, 7165365, 0783199, 335666879, 4672553, 50206634 #### [facility] [address] [place] [address] Lipid Panelon 09-07-2022 Cholesterol [Mass/Vol] 133 mg/dL Normal 120-200 [facility] Comment on above: Performed By: #### 2 154466, 6673584, 8334461, 9086872, 323730044, 1310961, 52980370 #### [facility] [address] [place] [address] Cholesterol in HDL [Mass/Vol] 60 mg/dL Invalid Interpretation Code [facility] Comment on above: Result Comment: HDL > or equal to 60 mg/dL: Low cardiovascular risk HDL < 40 mg/dL : High cardiovascular risk Performed By: #### 2 689116, 8507411, 4532122, 8429449, 791783440, 1744700, 67949234 #### [facility] [address] [place] [address] Cholesterol in LDL [Mass/Vol] 59 mg/dL Normal <=129 [facility] Comment on above: Performed By: #### 2 559520, 6845422, 6789569, 8981637, 612486459, 8497786, 15700751 #### [facility] [address] [place] [address] Cholesterol in VLDL [Mass/Vol] 8 mg/dL Normal 7-40 [facility] Comment on above: Performed By: #### 2 073720, 5712915, 6124016, 8532306, 279426537, 7583053, 67249820 #### [facility] [address] [place] [address] Triglyceride [Mass/Vol] 41 mg/dL Normal <=149 [facility] Comment on above: Performed By: #### 2 406539, 6103038, 0964616, 4477845, 880492336, 4942035, 38131397 #### [facility] [address] [place] [address] TSHon 09-07-2022 TSH Qn 0.74 m[IU]/L Normal 0.34-5.60 [facility] Comment on above: Performed By: #### 2 264573, 5730405, 3645375, 3602461, 753589409, 2590851, 47237904 #### [facility] [address] [place] [address] eGFRon 09-07-2022 GFR/1.73 sq M.predicted among non-blacks MDRD (S/P/Bld) [Vol rate/Area] 99 mL/min/1.73 m2 Normal >=59 [facility] Comment on above: Order Comment: Order added by Discern Expert. Result Comment: Lead Fire Protection Engineer siobhan kidney disease could be indicated at eGFR's of less than 60 mL/min/1.73m2. Kidney failure is indicated at less than 15 mL/min/1.73m2. 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 previous DR. pat patient Review of Systems PHQ Score Initial Depression Screen Score: 0 ROS - Provider Constitutional: no fever, no chills, no sweats, no fatigue Respiratory: no shortness of breath, no cough, no orthopnea, no wheezing. Cardiovascular: no chest pain, no palpitations, no edema. Neurologic: no headache, no dizziness, no numbness, no weakness. Physical Exam Vitals & Measurements HR: 76(Peripheral) RR: 16 BP: 114/72 SpO2: 99% HT: 68 in HT: 172.3 cm WT: 92.15 kg WT: 202.73 lb BMI: 31.04 General: alert, no acute distress ENMT: oral mucosa moist, no pharyngeal erythema or exudate Cardiovascular: regular rate and rhythm, normal peripheral perfusion Respiratory: Lungs CTA, respirations non labored Extremities: no deformity, no trauma Neurological: oriented x 4, LOC appropriate for age, CN II-XII intact, motor strength equal & normal bilaterally, speech normal Assessment/Plan 1. Type 2 diabetes mellitus (E11.9: Type 2 diabetes mellitus without complications) pt presents today to establish care. is in need of refill of semaglutide. will increase to 1mg. labs drawn in office today. all questions answered. RTC as needed Ordered: semaglutide, 1 mg, SubCutaneous, qWeek, 4 EA, Refill(s) 1, [id number], 172.3, cm, 09/06/22 17:10:00 EDT, Height/Length Dosing, 92.2, kg, 09/06/22 17:10:00 EDT, Weight Dosing CBC w/ Auto Diff Comprehensive Metabolic Panel HgbA1c Lipid Panel Thyroid Stimulating Hormone 2. Metabolic syndrome (E88.81: Metabolic syndrome) refills sent Ordered: semaglutide, 1 mg, SubCutaneous, qWeek, 4 EA, Refill(s) 1, [id number], 172.3, cm, 09/06/22 17:10:00 EDT, Height/Length Dosing, 92.2, kg, 09/06/22 17:10:00 EDT, Weight Dosing CBC w/ Auto Diff Comprehensive Metabolic Panel HgbA1c Lipid Panel Thyroid Stimulating Hormone 3. Wellness examination (Z00.00: Encounter for general adult medical examination without abnormal findings) annual wellness labs drawn in office today 4. BMI 31.0-31.9,adult (Z68.31: Body mass index [BMI] 31.0-31.9, adult) BMI eduction compelte Ordered: semaglutide, 1 mg, SubCutaneous, qWeek, 4 EA, Refill(s) 1, [id number], 172.3, cm, 09/06/22 17:10:00 EDT, Height/Length Dosing, 92.2, kg, 09/06/22 17:10:00 EDT, Weight Dosing CBC w/ Auto Diff Comprehensive Metabolic Panel HgbA1c Lipid Panel Thyroid Stimulating Hormone 5. Non-smoker (Z78.9: Other specified health status) continue not smoking Ordered: semaglutide, 1 mg, SubCutaneous, qWeek, 4 EA, Refill(s) 1, [id number], 172.3, cm, 09/06/22 17:10:00 EDT, Height/Length Dosing, 92.2, kg, 09/06/22 17:10:00 EDT, Weight Dosing CBC w/ Auto Diff Comprehensive Metabolic Panel HgbA1c Lipid Panel Thyroid Stimulating Hormone Follow-up No qualifying data available Problem List/Past Medical History Ongoing Carpal tunnel syndrome, bilateral Cerebral cysts Diabetes mellitus type II, controlled Hypertension Hypothyroidism Metabolic syndrome Migraines Pes planus Situational depression Type 2 diabetes mellitus Wellness examination Historical No qualifying data Procedure/Surgical History section. Medications Albuterol (Eqv-ProAir HFA), 2 puff(s), Inhalation, q4hr Depo-Provera 150mg/mL intramuscular suspension, 150 mg, IntraMuscular, q3mo hydrochlorothiazide-los andi 12.5 mg-50 mg Tab, 1 tab(s), Oral, Daily levothyroxine 100 mcg (0.1 mg) Tab, 100 mcg= 1 tab(s), Oral, Daily Ozempic 2 mg/1.5 mL (1 mg dose) subcutaneous solution, 1 mg, SubCutaneous, qWeek, 1 refills paroxetine 10 mg Tab, 10 mg= 1 tab(s), Oral, Bedtime, 3 refills semaglutide 2 mg/3 mL (0.25 mg or 0.5 mg dose) subcutaneous solution, 0.5 mg, SubCutaneous, qWeek Allergies No Known Allergies Social History Tobacco Never (less than 100 in lifetime) Tobacco Use:. Never Smokeless Tobacco Use:. Household tobacco concerns: No., 09/06/2022 Immunizations Vaccine Date Status Comments SARS-CoV-2 (COVID-19) mRNA-1273 vaccine 01/10/2021 Recorded 2022-09-06: TPVAL SARS-CoV-2 (COVID-19) mRNA-1273 vaccine 05/21/2020 Recorded 2022-09-06: TPV23 SARS-CoV-2 (COVID-19) mRNA-1273 vaccine (more content not included)... Normal [facility] Comment on above: Result Comment: Elec tronically Signed By: Donna Perla\.br\Date and Time Signed: 09/06/22 17:32 EDT Covid-19 PCR (CVDTB)on 09-26 SARS-CoV-2 (COVID-19) RNA MIKE+probe Ql (Unsp spec) Not detected Normal NOT DETECTED [facility] Comment on above: Result Comment: This test is not yet approved or cleared by the [place] FDA. When there are no FDA-approved or cleared tests available, and other criteria are met, FDA can make tests available under an emergency access mechanism called an Emergency Use Authorization (EUA). The EUA for this test is supported by the [employer] of Health and Human Service's (HHS's) declaration that circumstances exist to justify the emergency use of in vitro diagnostics for the detection and/or diagnosis of the virus that causes COVID-19. This EUA will remain in effect (meaning this test can be used) for the duration of the COVID-19 declaration justifying emergency of IVDs, unless it is terminated or revoked by FDA (after which the test may no longer be used). When diagnostic testing is negative, the possibility of a false negative should be considered in the context of a patient's recent exposures and the presence of clinical signs and symptoms consistent with SARS-CoV-2. Performed By: #### C VDTBH, CVDAGS #### [facility] [address] [place] [address] Marilee Sheridan SYMPTOMATIC COVID-19 ANTIGEN on 10-12-2020 EUA Statement SEE BELOW Normal [facility] Comment on above: Result Comment: This test has not been FDA cleared or approved, but has been authorized by the FDA under an Emergency Use Authorization (EUA) for use by authorized laboratories certified under CLIA that meet the requirements to perform moderate or high complexity testing. This test has been authorized only for the detection of proteins from SARS-CoV-2, not for any other viruses or pathogens. The emergency use of this test is authorized for the duration of the declaration that circumstances exist justifying the authorization of emergency use of in vitro diagnostic tests for detection and/or diagnosis of Covid-19 under section 564(b)(1) of the Act, 21 U.S.C. 360bbb-3(b)(1), unless the declaration is terminated or authorization is revoked sooner. Performed By: #### C VDTB, CVDS #### [facility] [address] [address] Marilee Sheridan SARS-CoV-2 (COVID-19) RNA MIKE+probe Ql (Unsp spec) Negative Normal NEGATIVE [facility] Comment on above: Result Comment: CONF IRMATION BY PCR PENDING PER CDC GUIDELINES/ SYMPTOMATIC PATIENT. Performed By: #### C VDTB, CVDS #### [facility] [address] [id number] Marilee Sheridan Encounters Encounter Date Encounter Type Care Provider Facility Start: 08-31-2023 End: 08-31-2023 ambulatory [facility] Facility:[facility] Start: 07-11-2023 End: 07-11-2023 ambulatory [facility] Start: 04-18-2023 End: 04-18-2023 ambulatory JOVAN PAT [facility] Start: 04-18-2023 End: 04-18-2023 ambulatory [facility] Comment on above: Encounter for survei llance of injectable contraceptive (Primary Dx) Start: 03-24-2023 End: 03-25-2023 Emergency department patient visit BELKIS MORRIS [facility] Start: 09-06-2022 End: 09-06-2022 Lab Drop off Donna Schroeder [facility] Start: 09-06-2022 End: 09-06-2022 ambulatory Donna Schroeder Facility:[facility] Start: 10-12-2020 End: 10-13-[address] JOVAN PAT Facility:[facility] Procedures Date Procedure Procedure Detail Performing Clinician Start: 11-13-2022 Adult depression scr eening assessment [facility] Start: 05-16-2021 Microscopic observat ion [Identifier] in Cervix by Cyto stain [facility] section Donna Schroeder Plan of Treatment Date Care Activity Detail Author Start: 05-16-2024 Screening for malign ant neoplasm of cervix Pap Smear [facility] Start: 03-24-2024 Adult BMI Screening Adult BMI Screen ing [facility] Start: 03-24-2024 Tobacco Screening Tobacco Screening [facility] Start: 11-14-2023 Adult BMI Follow Up Plan Adult BMI Follow Up Plan [facility] Start: 11-14-2023 Depression Screening Depression Scre ening [facility] Start: 07-11-2023 End: 07-11-2023 ambulatory 07/11/2023 8:15 AM EDT Nurse Injection [facility] [address] [place] [address] [facility] Start: 03-17-2023 DTaP,Tdap and Td Vaccines (7 - Td or Tdap) DTaP,Tdap and Td Vaccines (7 - Td or Tdap) [facility] Immunizations Immunization Date Immunization Notes Care Provider Fa cility 01-10-2021 SARS-CoV-2 (COVID-19 ) mRNA-1273 vaccine Donna Alexandre [facility] Comment on above: Result Comment: 2022: TPVAL 05-21-2020 SARS-CoV-2 (COVID-19 ) mRNA-1273 vaccine Donna Alexandre [facility] Comment on above: Result Comment: 2022: TPV23 04-21-2020 SARS-CoV-2 (COVID-19 ) mRNA-8612 vaccine Donna Alexandre [facility] Comment on above: Result Comment: 2022: TPV23 01-25-2019 influenza virus vaccine, unspecified formulation Donna Alexandre [facility] 03-17-2013 influenza virus vaccine, unspecified formulation Donna Alexandre [facility] 03-17-2013 measles, mumps and rubella virus vaccine Donna Alexandre [facility] 03-17-2013 tetanus toxoid, redu jose diphtheria toxoid, and acellular pertussis vaccine, adsorbed Donna Alexandre [facility] 06-19-2010 tetanus toxoid, redu jose diphtheria toxoid, and acellular pertussis vaccine, adsorbed Donna Alexandre [facility] 04-14-1999 measles, mumps and rubella virus vaccine Donna Alexandre [facility] 09-30-1990 Hib, unspecified formulation Donna Alexandre [facility] 09-30-1990 measles, mumps and rubella virus vaccine Donna Alexandre [facility] Payers Date Payer Category Payer Private Health Insurance [id number] 2010 Private Health Insurance [id number] 2010 Private Health Insurance [facility] PLUS [id number] 2010-Present [phone] [address] [address] [place] [address] [id number] 2002 Medicaid [employer] [employer] [place] [employer] [id number] 2002-Present [phone] [address] [place] [address] [id number] 1987 Unknown [id number] 1987 Unknown [id number]. 1286 1987 Unknown [id number]. 1286 1987 Unknown [id number] 1286 1987 Unknown [id number]. 1286 1987 Unknown [id number]. 1286 1987 Unknown [id number]. 727 1987 Unknown [id number] 727 1987 Unknown [id number]. 727 1959 Unknown [id number] Social History Date Type Detail Facility Start: 03-28-2022 End: 09-06-2022 Tobacco smoking status Never smoked tobacco (finding) [facility] Tobacco smoking status Never [facility] Start: 03-24-2020 End: 11-13-2022 Sex Assigned At Female [facility] Start: 03-28-2022 Tobacco use and exposure Smokeless tobacco non-user [facility] Start: 03-24-2023 Alcohol intake Current drinke r of alcohol (finding) [facility] Start: 03-24-2020 End: 11-13-2022 History of Social function [facility] Work Phone: How often to you hav e a drink containing alcohol? Monthly or less [facility] Work Phone: How many standard drinks containing alcohol do you have on a typical day? 1 or 2 [facility] How often do you hav e 6 or more drinks on 1 occasion? Never [facility] Start: 03-05-[address] [facility] Start: 1985 [facility] Start: 02-21-2021 Gender identity Identifies as female gender (finding) [facility] Start: 02-21-2021 Sexual orientation Heterosexual (patrizia lau) [facility] History of Present illness Narrative 04-18-2023 Jody Cazares LPN - 04/18/2023 8:15 AM EST Note Date & Type Note Facility 04-18-2023 History of Present illness Narrative Patient is here for DepoProvera IM administration. Medical history reviewed. Pt denies abnormal bleeding, concerns related to Depo. Urine test negative. Injection administered to __RUQ . Pt tolerated well, no adverse reactions noted. Patient to return to clinic for next Depo Administration in 10-12 weeks or PRN. Depo calendar given. documented in this encounter [facility] Evaluation + Plan note 09-06-2022 Note Date & Type Note Facility 09-06-2022 Evaluation + Plan note Diagnostic Tests PendingPSYCHIATRIC w/ Auto Diff 09/06/22Comprehensive Metabolic Panel 09/06/22Lipid Panel 09/06/22Thyroid Stimulating Hormone 09/06/2220OuzH0n 09/06/22 [facility] Evaluation note Note Date & Type Note Facility Evaluation note Diagnosis Encounter for surveillance of injectable contraceptive- Primary documented in this encounter [facility] Hospital course Narrative Note Date & Type Note Facility Hospital course Narrative No data available for this section [facility] Hospital Discharge instructions Note Date & Type Note Facility Hospital Discharge instructions No data available for this section [facility] Instructions Note Date & Type Note Facility Instructions Not on filedocumented in this en counter [facility] Progress note Note Date & Type Note Facility Progress note No data available for this section [facility] Summary Purpose Family History No Family History Records FoundNo Family History Records FoundNo Family History Records FoundNo Family History Records Found Advance Directives No Advanced Directives Records FoundNo Advanced Directives Records FoundNo Advanced Directives Records FoundNo Advanced Directives Records Found Additional Source Comments INFORMATION SOURCE (unrecogn ized section and content) DATE CREATED AUTHOR 11/01/2020 [facility] DATE CREATED AUTHOR AUTHOR'S ORGANIZ ATION 03/25/2023 [facility] DATE CREATED AUTHOR AUTHOR'S ORGANIZ ATION 07/13/2023 [facility] DATE CREATED AUTHOR AUTHOR'S ORGANIZ ATION 09/01/2023 [facility] Patient Care team informatio n (unrecognized section and content) Gins[employer] Farmer Relationship Specialty Start Date End Date Donna Schroeder, ROLLER INSPECTOR-MEDICAL CARE EVALUATION SPECIALIST [address] [place] [id number] PCP - General Nurse Practitioner 03/24/23 Reason for Visit (unrecogniz ed section and content) Reason Comments Contraception Pt is here for Depo FOR RECORDS PERTAINING TO PATIENTS WHO ARE OR HAVE BEEN ENROLLED IN A CHEMICAL DEPENDENCY/SUBSTANCEABUSE PROGRAM, SOME INFORMATION MAY BE OMITTED. This clinical summary was aggregated from multiple sources. Caution should be exercised in using it in the provision of clinical care. This summary normalizes information from multiple sources, and as a consequence, information in this document may materially change the coding, format and clinical context of patient data. In addition, data may be omitted in some cases. CLINICAL DECISIONS SHOULD BE BASED ON THE PRIMARY CLINICAL RECORDS. [employer] provides no warranty or guarantee of the accuracy or completeness of information in this document.
[2023-09-20 12:30] LABS: Anion Gap 11.7; BUN Creatinine Ratio 10.7; Carbon Dioxide 27.2 mmol/L (21.0-32.0); Chloride 105 mmol/L (98-107); Estimated GFR (African America >60 (>=60); Estimated GFR (Non-African Ame >60 (>=60); Glucose 98 mg/dL (74-106); Potassium 3.9 mmol/L (3.5-5.1); Sodium 140 mmol/L (136-145)
== END 2023-09-20 11:00 | disposition home or self-care (01) ==
LOC: PST 10:59
PROVIDERS: PCP Nurse Practitioner; Visit Provider Podiatrist Foot & Ankle Surgery
DX: Z01.810 Encounter for preprocedural cardiovascular examination (principal); Z01.812 Encounter for preprocedural laboratory examination; M20.12 Hallux valgus (acquired), left foot; M20.5X2 Other deformities of toe(s) (acquired), left foot
CPT/HCPCS: 80048; 93005

== ENCOUNTER 2023-09-27 08:21 | Day surgery (SDC) | payer OTHER, SELFPAY ==
[2023-09-20 11:05] VITALS: BP 121/88; PULSE 84; TEMP 36.4; O2SAT 97; BMI 35.8
[2023-09-27] VITALS (10 sets, daily range): BP systolic 107–147; BP diastolic 80–98; PULSE 83–99; TEMP 36.2–36.3; O2SAT 92–98; BMI 35.7
--- NOTE | 2023-09-27 | FL_ITS ---
[address] [address] Patient Name: ARY WRIGHT MRN: [id number] date: 1985 Sex: F Assigned Patient [facility] Current Patient Location: [email or web address] Accession/Order Number: [id number] Exam Date: 09/27/2023 14:11 Report Date: 10/01/2023 08:21 At the request of: ELLIE THOMAS Procedure: FL fluoroscopy <1hr NON-READ EXAM: FL fluoroscopy <1hr NON-READ HISTORY: TECHNIQUE: FINDINGS: Please see Operative Report. Electronically authenticated by: RADIOLOGIST NO Date: 10/01/2023 08:21
--- OUTSIDE RECORDS SUMMARY | 2023-09-27 08:24 | XMS_ITS | CCD ---
Author Organization [facility] Care Team Providers Care Infrastructure Director Name Role Phone DR JOVAN PAT Consulting [...] ALEXANDRE, DONNA Jordan Primary Care Unavailable Alexandre PROCESS LABORATORY SPECIALIST-MASTER CERTIFIED RV TECHNICIAN, Donna Jordan Primary Care Provider DONNA SCHROEDER [...] (1 source) Amoxicillin; Translations: [amoxicillin] Drug Allergy [facility] Repository Medications Current Medications Medication Drug Class(es) Dates Sig (Normalized) Sig (Original) 0.25 MG, 0.5 MG Dose 3 ML semaglutide 0.68 MG/ML Pen Injector (1 source) Start: 08-16-2022 inject 0.5 mg by subcutaneous injection every week semaglutide 2 mg/3 mL (0.25 mg or 0.5 mg dose) subcutaneous solution 0.5 mg, SubCutaneous, qWeek, # 3 mL, Refills(s) 0, Pharmacy: [facility]/pharmacy #[id number] Start Date: 08/16/22 Status: Ordered Albuterol (1 [...] mg, SubCutaneous, qWeek, 4 EA, Refill(s) 1, [facility]/pharmacy #[id number], 172.3, cm, 09/06/22 17:10:00 EDT, Height/Length [...] 150 mg Start: 04-18-2023 End: 04-18-2023 medroxyPROGESTERone (DEPO-ND OVERA) injection 150 mg Start: 09-06-2022 inject [...] choosing us for your care. Normal [facility] Office/Clini c Noteon 08-31-2023 Family [...] looked at, pt has never seen a blintze roller History of Present Illness pt presents today [...] causing pain now. will send referral to blintze roller. Or[place] [facility] [place] 2. Heel pain, bilateral (M79.671: Pain in right foot) both heels are painful especially when on her feet for a while. Ordered: [facility] [place] 3. Pain in left foot (M79.672: Pain in left foot) bunion is now painful on left foot. has had it for years but now it's bothering her Ordered: [facility] [place] 4. Diabetes mellitus type II, controlled (E11.9: Type 2 diabetes mellitus without complications) will increase ozempic Ordered: semaglutide, 1 mg, SubCutaneous, qWeek, 4 EA, Refill(s) 1, [id number], 172.3, cm, 09/06/22 17:10:00 EDT, Height/Length Dosing, 92.2, kg, 09/06/22 17:10:00 EDT, Weight Dosing [facility] [place] 5. BMI 36.0-36.9,adult (Z68.36: Body mass index [BMI] 36.0-36.9, adult) BMI education given Ordered: [facility] [place] 6. Non-smoker (Z78.9: Other specified health status) continue not smoking Ordered: semaglutide, 1 mg, SubCutaneous, qWeek, 4 EA, Refill(s) 1, [id number], 172.3, cm, 09/06/22 17:10:00 EDT, Height/Length Dosing, 92.2, kg, 09/06/22 17:10:00 EDT, Weight Dosing Orders: semaglutide, 1.7 mg, SubCutaneous, qWeek, # 12 EA, Refills(s) 1, Pharmacy: [facility]/pharmacy #[id number], 172.3, cm, 08/31/23 10:09:00 EDT, Height/Length [...] Recorded Hib, unspecified formulation 09/30/1990 Recorded Normal [facility] Comment on above: Result Comment: Elec tronically Signed By: Alexandre ESPINAL, Donna Jordan\.br\Date and Time Signed: 08/31/23 10:57 EDT Pre-Certification Formon Pre-Certification Form [id number] FF [facility] Pre-Certification Formon Pre-Certification Form [id number] IFF [facility] CBC AND AUTO DIFFon 03-24-19 ABSOLUTE BASOPHIL 0.1 X10E9/L Normal 0.0-0.2 [facility] Comment on above: Performed By: #### C LIMA CMP, 3040-3, 79115-5, 51120-0, 60872- 5, THYR #### [facility] ([id number]) [address] [place] [address] 51844 ABSOLUTE NEUTROPHIL 3.6 X10E9/L Normal 1.5-6.6 [facility] Comment on above: Performed By: #### C BCA CMP, 3040-3, 30563-5, 46077-4, 64371- 5, THYR #### [facility] ([id number]) [address] [place] [address] 56311 Basophils/100 WBC (Bld) 0.9 % Normal [facility] Comment on above: Performed By: #### C BCA, CMP, 3040-3, 62277-7, 62341-6, 55368- 5, THYR #### [facility] ([id number]) [address] [place] [address] 89291 Eosinophils (Bld) [#/Vol] 0.1 10*3/uL Normal 0.0-0.4 [facility] Comment on above: Performed By: #### C BCA, CMP, 3040-3, 70528-2, 96165-7, 48658- 5, THYR #### [facility] ([id number]) [address] [place] [address] 12118 Eosinophils/100 WBC (Bld) 2.5 % Normal [facility] Comment on above: Performed By: #### C BCA, CMP, 3040-3, 13259-7, 88637-3, 13364- 5, THYR #### [facility] ([id number]) [address] [place] [address] 65304 Erythrocyte distribution width (RBC) [Ratio] 12.7 % Normal 11.5-15.0 [facility] Comment on above: Performed By: #### C BCA, CMP, 3040-3, 37720-7, 59355-9, 30020- 5, THYR #### [facility] ([id number]) [address] [place] [address] 08050 Hematocrit (Bld) [Volume fraction] 43.1 % Normal 35-47 [facility] Comment on above: Performed By: #### C BCA, CMP, 3040-3, 45157-7, 98437-5, 12422- 5, THYR #### [facility] ([id number]) [address] [place] [address] 34998 Hemoglobin (Bld) [Mass/Vol] 14.7 g/dL Normal 11.7-15.5 [facility] Comment on above: Performed By: #### C BCA, CMP, 3040-3, 55237-9, 69176-7, 77615- 5, THYR #### [facility] ([id number]) [address] [place] [address] 59399 Lymphocytes (Bld) [#/Vol] 1.3 10*3/uL Normal 1.0-3.5 [facility] Comment on above: Performed By: #### C BCA, CMP, 3040-3, 77987-1, 80722-6, 15536- 5, THYR #### [facility] ([id number]) [address] [place] [address] 88053 Lymphocytes/100 WBC (Bld) 22.8 % Normal [facility] Comment on above: Performed By: #### C BCA, CMP, 3040-3, 54690-5, 29767-0, 72889- 5, THYR #### [facility] ([id number]) [address] [place] [address] 54119 MCH (RBC) [Entitic mass] 32.9 pg Normal 27-34 [facility] Comment on above: Performed By: #### C BCA, CMP, 3040-3, 68551-3, 64356-9, 96101- 5, THYR #### [facility] ([id number]) [address] [place] [address] 22519 MCHC (RBC) [Mass/Vol] 34.1 g/dL Normal 32-36 [facility] Comment on above: Performed By: #### C BCA, CMP, 3040-3, 75065-2, 39666-7, 03365- 5, THYR #### [facility] ([id number]) [address] [place] [address] 53749 MCV (RBC) [Entitic vol] 97 fL Normal 80-100 [facility] Comment on above: Performed By: #### C BCA, CMP, 3040-3, 05136-0, 03608-5, 28436- 5, THYR #### [facility] ([id number]) [address] [place] [address] 68112 Monocytes (Bld) [#/Vol] 0.6 10*3/uL Normal 0-0.9 [facility] Comment on above: Performed By: #### C BCA, CMP, 3040-3, 74393-1, 73547-2, 38938- 5, THYR #### [facility] ([id number]) [address] [place] [address] 25988 Monocytes/100 WBC (Bld) 10.4 % Normal [facility] Comment on above: Performed By: #### C BCA, CMP, 3040-3, 26536-2, 15032-1, 71096- 5, THYR #### [facility] ([id number]) [address] [place] [address] 13988 Neutrophils/100 WBC (Bld) 63.4 % Normal [facility] Comment on above: Performed By: #### C BCA, CMP, 3040-3, 29039-1, 99269-9, 31830- 5, THYR #### [facility] ([id number]) [address] [place] [address] 33230 Platelet mean volume (Bld) [Entitic vol] 8.1 fL Normal 7-12 [facility] Comment on above: Performed By: #### C BCA, CMP, 3040-3, 68502-3, 67967-5, 81945- 5, THYR #### [facility] ([id number]) [address] [place] [address] 24122 Platelets (Bld) [#/Vol] 269 10*3/uL Normal 150-450 [facility] Comment on above: Performed By: #### Amari BCA, CMP, 3040-3, 36303-2, 54009-8, 42674- 5, THYR #### [facility] ([id number]) [address] [place] [address] 65653 RBC COUNT 4.46 X10E12/L Normal 3.80-5.20 [facility] Comment on above: Performed By: #### C BCA, CMP, 3040-3, 34331-4, 44963-8, 07852- 5, THYR #### [facility] ([id number]) [address] [place] [address] 44686 WBC (Bld) [#/Vol] 5.7 10*3/uL Normal 4.0-11.0 [facility] Comment on above: Performed By: #### C BCA, CMP, 3040-3, 45878-7, 11379-3, 34314- 5, THYR #### [facility] ([id number]) [address] [place] [address] 35296 COMPREHENSIVE METABOLIC PANE Jd 03-24-2023 Albumin [Mass/Vol] 4.8 g/dL Normal 3.2-5.3 [facility] Comment on above: Performed By: #### C BCA, CMP, 3040-3, 95774-3, 18949-3, 19548- 5, THYR #### [facility] ([id number]) [address] [place] [address] 10182 ALP [Catalytic activity/Vol] 54 U/L Normal 39-130 [facility] Comment on above: Performed By: #### C BCA, CMP, 3040-3, 91588-7, 30796-6, 34745- 5, THYR #### [facility] ([id number]) [address] [place] [address] 87509 ALT [Catalytic activity/Vol] 24 U/L Normal 0-31 [facility] Comment on above: Performed By: #### C BCA, CMP, 3040-3, 85095-8, 71069-0, 12792- 5, THYR #### [facility] ([id number]) [address] [place] [address], [place] [address] Anion gap [Moles/Vol] 10 mmol/L Normal 5-15 [facility] Comment on above: Performed By: #### C BCA, CMP, 3040-3, 64390-0, 83625-7, 06849- 5, THYR #### [facility] ([id number]) [address] [place] [address] 44904 AST [Catalytic activity/Vol] 21 U/L Normal 0-41 [facility] Comment on above: Performed By: #### C BCA, CMP, 3040-3, 85838-7, 00153-6, 40721- 5, THYR #### [facility] ([id number]) [address] [place] [address] 09102 Bilirubin [Mass/Vol] 0.9 mg/dL Normal 0.3-1.2 [facility] Comment on above: Performed By: #### C BCA, CMP, 3040-3, 29792-6, 69599-1, 46516- 5, THYR #### [facility] ([id number]) [address] [place] [address] 07182 Calcium [Mass/Vol] 9.0 mg/dL Normal 8.5-10.5 [facility] Comment on above: Performed By: #### C BCA, CMP, 3040-3, 92194-7, 02886-7, 40108- 5, THYR #### [facility] ([id number]) [address] [place] [address] 59927 Chloride [Moles/Vol] 106 mmol/L Normal 98-109 [facility] Comment on above: Performed By: #### C BCA, CMP, 3040-3, 67160-1, 32190-5, 44873- 5, THYR #### [facility] ([id number]) [address] [place] [address] 49968 CO2 [Moles/Vol] 23 mmol/L Normal 22-32 [facility] Comment on above: Performed By: #### C BCA, CMP, 3040-3, 94424-3, 61257-1, 14930- 5, THYR #### [facility] ([id number]) [address] [place] [address] 12880 Creatinine [Mass/Vol] 0.87 mg/dL Normal 0.40-1.00 [facility] Comment on above: Result Comment: METH OD TRACEABLE TO IDMS STANDARD Performed By: #### C BCA, CMP, 3040-3, 84874-7, 69062-8, 19301-6, THYR #### [facility] ([id number]) [address] [place] [address] 51915 GFR/1.73 sq M.predicted among non-blacks MDRD (S/P/Bld) [Vol rate/Area] 89 mL/min/{1.73_m2} Normal >59 [facility] Comment on above: Result Comment: Reported eGFR is based on the CKD-EPI 2020 equation that does not use a race coefficient. Performed By: #### C BCA, CMP, 3040-3, 81772-8, 78683-3, 84993-1, THYR #### [facility] ([id number]) [address] [place] [address] 21010 Glucose [Mass/Vol] 105 mg/dL High 65-99 [facility] Comment on above: Performed By: #### C BCA, CMP, 3040-3, 83898-5, 08193-5, 89874- 5, THYR #### [facility] ([id number]) [address] [place] [address] 24904 Potassium [Moles/Vol] 3.8 mmol/L Normal 3.5-5.0 [facility] Comment on above: Performed By: #### C BCA, CMP, 3040-3, 04692-8, 51274-2, 64648- 5, THYR #### [facility] ([id number]) [address] [place] [address] 41465 Protein [Mass/Vol] 7.7 g/dL Normal 6.0-8.0 [facility] Comment on above: Performed By: #### C BCA, CMP, 3040-3, 99440-8, 12636-5, 26861- 5, THYR #### [facility] ([id number]) [address] [place] [address] 07945 Sodium [Moles/Vol] 139 mmol/L Normal 134-146 [facility] Comment on above: Performed By: #### C BCA, CMP, 3040-3, 26021-0, 45941-1, 36996- 5, THYR #### [facility] ([id number]) [address] [place] [address] 26884 Urea nitrogen [Mass/Vol] 12 mg/dL Normal 5-23 [facility] Comment on above: Performed By: #### C BCA, CMP, 3040-3, 01613-5, 14999-9, 18603- 5, THYR #### [facility] ([id number]) [address] [place] [address] ABDOMEN AND PELVIS W CONT on [...] Mitchell MD on 03/24/2023 11:09 AM Normal [facility] Fibrin D-dimer DDU (PPP) [Ma ss/Vol]on 03-24-2023 D DIMER <150 Normal <255 [facility] Comment on above: Result Comment: Results <255 ng/mL DDU: The presence of a VTE can safely be excluded with a negative D-Dimer result and Wells score. A negative result doesn't exclude the possibility of DIC. The test be repeated along with other diagnostic tests if the patient's symptoms persist or worsen. [email or web address] Performed By: #### C JORGE AMATO, 3040-3, 51180-6, 83365-8, 08395-5, THYR #### [facility] ([id number]) [address] [place] [address] 29767 HCG ( test) Ql (U)o n 03-24-2023 Beta HCG ( test) Ql (U) Negative Normal NEG [facility] Comment on above: Performed By: #### C JORGE AMATO, 3040-3, 06204-0, 46251-0, 49594- 5, THYR #### [facility] ([id number]) [address] [place] [address] 96989 LIPASEon 03-24-2023 Lipase [Catalytic activity/Vol] 44 U/L High 17-40 [facility] Comment on above: Performed By: #### C BCA, CMP, 3040-3, 75715-0, 86142-8, 30403- 5, THYR #### [facility] ([id number]) [address] [place] [address] 65545 MAGNESIUMon 03-24-2023 Magnesium [Mass/Vol] 2.1 mg/dL Normal 1.8-2.6 [facility] Comment on above: Performed By: #### C BCA, CMP, 3040-3, 47594-9, 01262-7, 57500- 5, THYR #### [facility] ([id number]) [address] [place] [address] 33103 THYROID PROFILEon 03-24-2023 Free T4 [Mass/Vol] 0.88 ng/dL Normal 0.61-1.60 [facility] Comment on above: Performed By: #### C BCA, CMP, 3040-3, 85747-9, 02343-1, 90576- 5, THYR #### [facility] ([id number]) [address] [place] [address] 91966 TSH 1.29 uIU/mL Normal 0.49-4.67 [facility] Comment on above: Performed By: #### C BCA, CMP, 3040-3, 62499-4, 26894-1, 06256- 5, THYR #### [facility] ([id number]) [address] [place] [address] 37315 TROPONIN Ion 03-24-2023 Troponin I.cardiac [Mass/Vol] ng/mL Normal 0.00-0.04 [facility] Comment on above: Performed By: #### C BCA, CMP, 3040-3, 21532-5, 67089-7, 62446- 5, THYR #### [facility] ([id number]) [address] [place] [address] 30614 URN MACROSCOPIC NURon 2023 BILIRUBIN ANNE Negative Normal NEG [facility] Comment on above: Performed By: #### N UM #### [facility] ([id number]) [address] [place] [address], [place] [address] BLOOD/HGB ANNE Negative Normal NEG [facility] Comment on above: Performed By: #### N UM #### [facility] ([id number]) [address] [place] [address], [place] [address] GLUCOSE ANNE Negative Normal NEG [facility] Comment on above: Performed By: #### N UM #### [facility] ([id number]) [address] [place] [address], [place] [address] KETONES ANNE Negative Normal NEG [facility] Comment on above: Performed By: #### N UM #### [facility] ([id number]) [address] [place] [address] [place] [address] LEUKOCYTE ESTERASE ANNE Negative Normal NEG [facility] Comment on above: Performed By: #### N UM #### [facility] ([id number]) [address] [place] [address], [place] [address] NITRITE ANNE Negative Normal NEG [facility] Comment on above: Performed By: #### N UM #### [facility] ([id number]) [address] [place] [address] [place] [address] PH ANNE 5.5 Normal 5.0-8.5 [facility] Comment on above: Performed By: #### N UM #### [facility] ([id number]) [address] [place] [address] [place] [address] PROTEIN ANNE Negative Normal NEG [facility] Comment on above: Performed By: #### N UM #### [facility] ([id number]) [address] [place] [address], [place] [address] SPECIFIC GRAVITY ANNE 1.010 Normal 1.003-1.035 [facility] Comment on above: Performed By: #### N UM #### [facility] ([id number]) [address] [facility], [place] [address] UROBILINOGEN ANNE 0.2 eu/dL Normal <1.1 [facility] Comment on above: Performed By: #### N #### [facility] ([id number]) [address] [facility], [place] [address] XR CHEST 1 VWon 03-24-2023 XR CHEST [...] Pinto MD on 03/24/2023 10:39 AM Normal [facility] Reminderson 09-08-2022 Reminders - From: Donna Perla To: [facility] - Clinical; Sent: 09/08/2022 07:38:15 EDT Show up: 09/08/2022 07:38:00 EDT Subject: Ambulatory Reminder Due Date/Time: 09/09/2022 07:37:00 EDT Let pt know her labs were all normal. CAAFA5C is 5.3 Results: Date Result Name Ind [...] 30.1 % (14.0 - 50.0) 09/06/2022 17:35 Laurel Auto 6.5 % (4.0 - 14.0) 09/06/2022 17:35 Eos Auto 0.9 % (0.0 - 8.0) 09/06/2022 17:35 Basophil Auto 0.8 % (0.0 - 2.0) 09/06/2022 17:35 Neutro Absolute 3.6 E9/L (2.0 - 7.5) 09/06/2022 17:35 Lymph Absolute 1.8 E9/L (1.0 - 4.0) 09/06/2022 17:35 Laurel Absolute 0.4 E9/L (0.2 - 1.0) 09/06/2022 [...] 5.60) notified patient of message below Normal [facility] Auto Diffon 09-07-2022 Basophils/100 WBC (Bld) 0.8 % Normal 0.0-2.0 [facility] Comment on above: Order Comment: Order Added by Discern Expert. Performed By: #### 2 036488, 6646263, 5210232, 7805665, 504027854, 9648103, 21488420 #### [facility] [address] [place] [address] 89815 Basophils/Leukocyt es Auto (Bld) [Pure # fraction] 0.0 E9/L Normal 0.0-0.2 [facility] Comment on above: Order Comment: Order Added by Discern Expert. Performed By: #### 2 283635, 1723612, 8122217, 1604412, 267709789, 1654472, 65515349 #### [facility] [address] [place] [address] 79622 Eosinophils/100 WBC (Bld) 0.9 % Normal 0.0-8.0 [facility] Comment on above: Order Comment: Order Added by Discern Expert. Performed By: #### 2 699143, 4077279, 6160621, 2452404, 217216240, 1079572, 56481437 #### [facility] [address] [place] [address] 97183 Eosinophils/Leukoc ytes Auto (Bld) [Pure # fraction] 0.1 E9/L Normal 0.0-0.5 [facility] Comment on above: Order Comment: Order Added by Discern Expert. Performed By: #### 2 578130, 7559148, 4541348, 7111058, 470627366, 0590962, 58694704 #### [facility] [address] [place] [address] 45046 Lymphocytes/100 WBC (Bld) 30.1 % Normal 14.0-50.0 [facility] Comment on above: Order Comment: Order Added by Discern Expert. Performed By: #### 2 667848, 9872112, 2143574, 0549574, 520559039, 8420836, 05297244 #### [facility] [address] [place] [address] 50904 Lymphocytes/Leukoc ytes Auto (Bld) [Pure # fraction] 1.8 E9/L Normal 1.0-4.0 [facility] Comment on above: Order Comment: Order Added by Discern Expert. Performed By: #### 2 382006, 0858541, 4203091, 9185859, 272347273, 2832873, 73749525 #### [facility] [address] [place] [address] Monocytes/100 WBC (Bld) 6.5 % Normal 4.0-14.0 [facility] Comment on above: Order Comment: Order Added by Discern Expert. Performed By: #### 2 939909, 9993734, 8137346, 2093676, 644081265, 2825611, 89394938 #### [facility] [address] [place] [address] 66099 Monocytes/Leukocyt es Auto (Bld) [Pure # fraction] 0.4 E9/L Normal 0.2-1.0 [facility] Comment on above: Order Comment: Order Added by Shira Expert. Performed By: #### 2 450371, 2302474, 0887662, 1176062, 299278362, 5796551, 43891974 #### [facility] [address] [place] [address] 32492 Neutrophils/100 WBC (Bld) 61.7 % Normal 36.0-75.0 [facility] Comment on above: Order Comment: Order Added by Shira Expert. Performed By: #### 2 565170, 4278439, 1543701, 9136314, 343217795, 8536081, 77589300 #### [facility] [address] [place] [address] Neutrophils/Leukoc ytes Auto (Bld) [Pure # fraction] 3.6 E9/L Normal 2.0-7.5 [facility] Comment on above: Order Comment: Order Added by Shira Expert. Performed By: #### 2 484381, 5782822, 6417570, 1566655, 039188746, 6358839, 93629122 #### [facility] [address] [place] [address] 85976 CBC w/ Auto Diffon 3 Erythrocyte distribution width (RBC) [Ratio] 14.4 % High 10.9-14.2 [facility] Comment on above: Performed By: #### 2 889597, 0966939, 0466320, 8338844, 523354732, 9305477, 05074717 #### [facility] [address] [place] [address] Hematocrit (Bld) [Volume fraction] 43.4 % Normal 34.0-46.0 [facility] Comment on above: Performed By: #### 2 226200, 1212462, 9391319, 0520733, [id number], 9913230, [id number] #### [facility] [address] [place] [address] Hemoglobin (Bld) [Mass/Vol] 14.0 g/dL Normal 12.0-16.0 [facility] Comment on above: Performed By: #### 2 065462, 1737843, 7518499, 4082280, [id number], 6873346, [id number] #### [facility] [address] [place] [address] MCH (RBC) [Entitic mass] 33.3 pg Normal 27.0-34.0 [facility] Comment on above: Performed By: #### 2 985000, 8827687, 1518773, 9642272, [id number], 9383505, 47898850 #### [facility] [address] [place] [address] MCHC (RBC) [Mass/Vol] 32.4 g/dL Normal 31.4-36.0 [facility] Comment on above: Performed By: #### 2 341692, 9942819, 6651179, 0344775, [id number], 5805280, 11802216 #### [facility] [address] [place] [address] MCV (RBC) [Entitic vol] 102.8 fL High 80.0-100.0 [facility] Comment on above: Performed By: #### 2 488168, 3225431, 6519455, 0956181, [id number], 3504316, 13467280 #### [facility] [address] [place] [address] Platelet mean volume (Bld) [Entitic vol] 9.3 fL Normal 6.4-10.8 [facility] Comment on above: Performed By: #### 2 575358, 9937843, 1362770, 0863719, 929655570, 6030318, 63500390 #### [facility] [address] [place] [address] Platelets (Bld) [#/Vol] 264.0 E9/L Normal 150.0-500.0 [facility] Comment on above: Performed By: #### 2 739402, 0114373, 3714578, 8710917, [id number], 6298006, 09587591 #### [facility] [address] [place] [address] RBC (Bld) [#/Vol] 4.2 E12/L Low 4.3-5.9 [facility] Comment on above: Performed By: #### 2 426637, 2730542, 2784368, 8947888, 289748135, 3469603, 29454403 #### [facility] [address] [place] [address] WBC corrected for nucl RBC Auto (Bld) [#/Vol] 5.9 E9/L Normal 4.0-11.0 [facility] Comment on above: Performed By: #### 2 874241, 5367029, 5930674, 4244309, 503018114, 9836606, 59002362 #### [facility] [address] [place] [address] CMPon 09-07-2022 Albumin [Mass/Vol] 4.3 g/dL Normal 3.3-5.0 [facility] Comment on above: Performed By: #### 2 519744, 8788588, 8221050, 4261985, 311998109, 5181757, 68825192 #### [facility] [address] [place] [address] Albumin/Globulin (S) [Mass conc ratio] 1.6 Normal 1.1-2.2 [facility] Comment on above: Performed By: #### 2 409581, 9073510, 3023663, 0210406, 357254414, 7664247, 39143845 #### [facility] [address] [place] [address] ALP [Catalytic activity/Vol] 41 Int._Unit/L Normal 21-98 [facility] Comment on above: Performed By: #### 2 722714, 4260842, 3984249, 9343291, 768632086, 3132883, 12360288 #### [facility] [address] [place] [address] ALT No additional P-5'-P [Catalytic activity/Vol] 27 Int._Unit/L Normal 6-46 [facility] Comment on above: Performed By: #### 2 078442, 9586644, 0862987, 1137248, 560449634, 5847371, 45779171 #### [facility] [address] [place] [address] Anion gap [Moles/Vol] 11 mmol/L Normal 6-16 [facility] Comment on above: Performed By: #### 2 521798, 0036502, 6602931, 5863185, 909382684, 6289796, 96796293 #### [facility] [address] [place] [address] AST [Catalytic activity/Vol] 25 Int._Unit/L Normal 5-43 [facility] Comment on above: Performed By: #### 2 404047, 3162583, 2486308, 3331892, 270674728, 5993567, 88681889 #### [facility] [address] [place] [address] Bilirubin [Mass/Vol] 0.8 mg/dL Normal 0.0-1.1 [facility] Comment on above: Performed By: #### 2 423790, 3663439, 7291088, 4599485, 639063373, 1217683, 74963317 #### [facility] [address] [place] [address] Calcium [Mass/Vol] 9.1 mg/dL Normal 8.9-11.1 [facility] Comment on above: Performed By: #### 2 653978, 5800677, 8478344, 5816124, 611322690, 1493398, 05121298 #### [facility] [address] [place] [address] Chloride [Moles/Vol] 109 mmol/L Normal 101-111 [facility] Comment on above: Performed By: #### 2 135739, 2325097, 3498360, 8040202, 119542259, 6580590, 89472490 #### [facility] [address] [place] [address] CO2 [Moles/Vol] 23 mmol/L Normal 21-31 [facility] Comment on above: Performed By: #### 2 329270, 5764630, 4380914, 1484453, 258009913, 1404077, 64590488 #### [facility] [address] [place] [address] Creatinine [Mass/Vol] 0.8 mg/dL Normal 0.5-1.3 [facility] Comment on above: Performed By: #### 2 929960, 1007256, 4680305, 5567427, 437685993, 2249842, 63260745 #### [facility] [address] [place] [address] Globulin (S) [Mass/Vol] 2.7 g/dL Normal 1.4-4.0 [facility] Comment on above: Performed By: #### 2 562803, 6615613, 9159701, 0936513, 924471724, 0503469, 77743537 #### [facility] [address] [place] [address] Glucose [Mass/Vol] 106 mg/dL Normal 55-199 [facility] Comment on above: Result Comment: If t his glucose result represents a fasting glucose, interpretation should refer to the following reference range: 55-99 mg/dL Performed By: #### 2 772342, 9085549, 1041769, 2509029, 909484528, 7426468, 28819018 #### [facility] [address] [place] [address] Potassium [Moles/Vol] 3.6 mmol/L Normal 3.5-5.3 [facility] Comment on above: Performed By: #### 2 095203, 9737075, 4846840, 1069026, 310218622, 3570384, 61674367 #### [facility] [address] [place] [address] Protein [Mass/Vol] 7.0 g/dL Normal 6.0-7.8 [facility] Comment on above: Performed By: #### 2 176683, 3063538, 0397712, 2110370, 258253142, 9014761, 30272634 #### [facility] [address] [place] [address] Sodium [Moles/Vol] 139 mmol/L Normal 135-145 [facility] Comment on above: Performed By: #### 2 108316, 1300713, 0748289, 4615766, 753448783, 5320924, 51490767 #### [facility] [address] [place] [address] Urea nitrogen [Mass/Vol] 10 mg/dL Normal 5-21 [facility] Comment on above: Performed By: #### 2 871127, 1322512, 2594343, 3176701, 798355603, 8197996, 30334307 #### [facility] [address] [place] [address] Urea nitrogen/Creatinin e [Mass ratio] 12 No Units Normal 10-20 [facility] Comment on above: Performed By: #### 2 860337, 9535684, 9448901, 6658197, 275996717, 9777726, 58948703 #### [facility] [address] [place] [address] [id number] 09-07-2022 HbA1c (Bld) [Mass fraction] 5.3 % Normal <=5.9 [facility] Comment on above: Performed By: #### 2 768713, 3637309, 8061606, 9027126, 071921132, 8093024, 81784113 #### [facility] [address] [place] [address] Lipid Panelon 09-07-2022 Cholesterol [Mass/Vol] 133 mg/dL Normal 120-200 [facility] Comment on above: Performed By: #### 2 853761, 4807498, 2570159, 7986615, 342223524, 1353108, 83465912 #### [facility] [address] [place] [address] Cholesterol in HDL [Mass/Vol] 60 mg/dL Invalid Interpretation Code [facility] Comment on above: Result Comment: HDL > or equal to 60 mg/dL: Low cardiovascular risk HDL < 40 mg/dL : High cardiovascular risk Performed By: #### 2 631108, 1617334, 6259039, 2645445, 156308768, 4631149, 02628160 #### [facility] [address] [place] [address] Cholesterol in LDL [Mass/Vol] 59 mg/dL Normal <=129 [facility] Comment on above: Performed By: #### 2 433111, 3403220, 7903110, 2121347, 786048215, 0694885, 10817856 #### [facility] [address] [place] [address] Cholesterol in VLDL [Mass/Vol] 8 mg/dL Normal 7-40 [facility] Comment on above: Performed By: #### 2 637471, 6375319, 9446147, 5241200, 025025958, 7153044, 09375627 #### [facility] [address] [place] [address] Triglyceride [Mass/Vol] 41 mg/dL Normal <=149 [facility] Comment on above: Performed By: #### 2 900909, 3495979, 8568176, 3173711, 178482855, 7067227, 15519375 #### [facility] [address] [place] [address] TSHon 09-07-2022 TSH Qn 0.74 m[IU]/L Normal 0.34-5.60 [facility] Comment on above: Performed By: #### 2 934458, 9330699, 0923438, 6090272, 806242097, 4850971, 00312804 #### [facility] [address] [place] [address] eGFRon 09-07-2022 GFR/1.73 sq M.predicted among non-blacks MDRD (S/P/Bld) [Vol rate/Area] 99 mL/min/1.73 m2 Normal >=59 [facility] Comment on above: Order Comment: Order added by Discern Expert. Result Comment: [employer] Representatives siobhan kidney disease could be indicated at eGFR's of less than 60 mL/min/1.73m2. Kidney failure is indicated at less than 15 mL/min/1.73m2. 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 Normal [facility] Comment on above: Result Comment: Elec tronically Signed By: Donna Perla\.br\Date and Time Signed: 09/06/22 17:32 EDT Covid-19 PCR (CVDTB)on 09-26 SARS-CoV-2 (COVID-19) RNA MIKE+probe Ql (Unsp spec) Not detected Normal NOT DETECTED [facility] Comment on above: Result Comment: This test is not yet approved or cleared by the [place] FDA. When there are no FDA-approved or cleared tests available, and other criteria are met, FDA can make tests available under an emergency access mechanism called an Emergency Use Authorization (EUA). The EUA for this test is supported by the Recessing Machine Operator of Health and Human Service's (HHS's) declaration [...] Performed By: #### C VDTBH, CVDAGS #### [facility] [address] [place] [address] Marilee Sheridan SYMPTOMATIC COVID-19 ANTIGEN on 10-12-2020 EUA Statement SEE BELOW Normal [facility] Comment on above: Result Comment: This [...] Performed By: #### C VDTB, CVDS #### [facility] [address] [address] Marilee Sheridan SARS-CoV-2 (COVID-19) RNA MIKE+probe Ql (Unsp spec) Negative Normal NEGATIVE [facility] Comment on above: Result Comment: CONF IRMATION BY PCR PENDING PER CDC GUIDELINES/ SYMPTOMATIC PATIENT. Performed By: #### C VDTB, CVDS #### [facility] [address] [id number] Marilee Sheridan Encounters Encounter Date Encounter Type Care Provider Facility Start: 08-31-2023 End: 08-31-2023 ambulatory [facility] Facility:[facility] Start: 07-11-2023 End: 07-11-2023 ambulatory [facility] Start: 04-18-2023 End: 04-18-2023 ambulatory JOVAN PAT [facility] Start: 04-18-2023 End: 04-18-2023 ambulatory [facility] Comment on above: Encounter for survei llance of injectable contraceptive (Primary Dx) Start: 03-24-2023 End: 03-25-2023 Emergency department patient visit BELKIS MORRIS [facility] Start: 09-06-2022 End: 09-06-2022 Lab Drop off Donna Schroeder [facility] Start: 09-06-2022 End: 09-06-2022 ambulatory Donna Schroeder [facility] Start: 10-12-2020 End: 10-13-[address] JOVAN PAT Facility:[facility] Procedures Date Procedure Procedure Detail Performing Clinician Start: 11-13-2022 Adult depression scr eening assessment [facility] Start: 05-16-2021 Microscopic observat ion [Identifier] in Cervix by Cyto stain [facility] section Donna Schroeder Plan of Treatment Date Care Activity Detail Author Start: 05-16-2024 Screening for malign ant neoplasm of cervix Pap Smear [facility] Start: 03-24-2024 Adult BMI Screening Adult BMI Screen ing [facility] Start: 03-24-2024 Tobacco Screening Tobacco Screening [facility] Start: 11-14-2023 Adult BMI Follow Up Plan Adult BMI Follow Up Plan [facility] Start: 11-14-2023 Depression Screening Depression Scre ening [facility] Start: 07-11-2023 End: 07-11-2023 ambulatory 07/11/2023 8:15 AM EDT Nurse Injection [facility] [address] [place] [address] [facility] Start: 03-17-2023 DTaP,Tdap and Td Vaccines (7 - Td or Tdap) DTaP,Tdap and Td Vaccines (7 - Td or Tdap) [facility] Immunizations Immunization Date Immunization Notes Care Provider Fa cility 01-10-2021 SARS-CoV-2 (COVID-19 ) mRNA-1273 vaccine Donna Alexandre [facility] Comment on above: Result Comment: 2022: TPVAL 05-21-2020 SARS-CoV-2 (COVID-19 ) mRNA-1273 vaccine Donna Alexandre [facility] Comment on above: Result Comment: 2022: TPV23 04-21-2020 SARS-CoV-2 (COVID-19 ) mRNA-0629 vaccine Donna Alexandre [facility] Comment on above: Result Comment: 2022: TPV23 01-25-2019 influenza virus vaccine, unspecified formulation Donna Alexandre [facility] 03-17-2013 influenza virus vaccine, unspecified formulation Donna Alexandre [facility] 03-17-2013 measles, mumps and rubella virus vaccine Donna Alexandre [facility] 03-17-2013 tetanus toxoid, redu jose diphtheria toxoid, and acellular pertussis vaccine, adsorbed Donna Alexandre [facility] 06-19-2010 tetanus toxoid, redu jose diphtheria toxoid, and acellular pertussis vaccine, adsorbed Donna Alexandre [facility] 04-14-1999 measles, mumps and rubella virus vaccine Donna Alexandre [facility] 09-30-1990 Hib, unspecified formulation Donna Alexandre [facility] 09-30-1990 measles, mumps and rubella virus vaccine Donna Alexandre [facility] Payers Date Payer Category Payer Private Health Insurance [id number] 2010 Private Health Insurance [id number] 2010 Private Health Insurance [facility] [id number] 2010-Present [phone] [address] [address] [place] [address] [id number] 2002 Medicaid [place] [employer] [id number] 2002-Present [phone] [address] [place] [address] [id number] 1987 Unknown [id number] [id number]. 593 1987 Unknown [id number] [id number]. 1286 1987 Unknown [id number] 2.16.840.1.798080.3.579.2. 1286 1987 Unknown [id number] [id number]. 1286 1987 Unknown [id number] 2.16.840.1.987233.3.579.2. 1286 1987 Unknown [id number] 2.16.840.1.776481.3.579.2. 1286 1987 Unknown [id number] [id number]. 727 1987 Unknown [id number] [id number]. 727 1987 Unknown [id number] [id number]. 727 1959 Unknown [id number] Social History Date Type Detail Facility Start: 03-28-2022 End: 09-06-2022 Tobacco smoking status Never smoked tobacco (finding) [facility] Tobacco smoking status Never [facility] Start: 03-24-2020 End: 11-13-2022 Sex Assigned At Female [facility] Start: 03-28-2022 Tobacco use and exposure Smokeless tobacco non-user [facility] Start: 03-24-2023 Alcohol intake Current drinke r of alcohol (finding) [facility] Start: 03-24-2020 End: 11-13-2022 History of Social function [facility] Work Phone: How often to you hav e a drink containing alcohol? Monthly or less [facility] Work Phone: How many standard drinks containing alcohol do you have on a typical day? 1 or 2 [facility] How often do you hav e 6 or more drinks on 1 occasion? Never [facility] Start: 03-05-2017 [facility] Start: 1985 [facility] Start: 02-21-2021 Gender identity Identifies as female gender (finding) [facility] Start: 02-21-2021 Sexual orientation Heterosexual (patrizia lau) [facility] History of Present illness Narrative [...] Depo calendar given. documented in this encounter [facility] Evaluation + Plan note 09-06-2022 Note Date & Type Note Facility 09-06-2022 Evaluation + [facility] 09/06/22Comprehensive Metabolic Panel 09/06/22Lipid Panel 09/06/22Thyroid Stimulating Hormone 09/06/[id number] 09/06/22 [facility] Evaluation note Note Date & Type Note Facility Evaluation note Diagnosis Encounter for surveillance of injectable contraceptive- Primary documented in this encounter [facility] Hospital course Narrative Note Date & Type Note Facility Hospital course Narrative No data available for this section [facility] Hospital Discharge instructions Note Date & Type Note Facility Hospital Discharge instructions No data available for this section [facility] Instructions Note Date & Type Note Facility Instructions Not on filedocumented in this en counter [facility] Progress note Note Date & Type Note Facility Progress note No data available for this section [facility] Summary Purpose Family History No Family History Records FoundNo Family History Records FoundNo Family History Records FoundNo Family History Records Found Advance Directives No Advanced Directives Records FoundNo Advanced Directives Records FoundNo Advanced Directives Records FoundNo Advanced Directives Records Found Additional Source Comments INFORMATION SOURCE (unrecogn ized section and content) DATE CREATED AUTHOR 11/01/2020 [facility] DATE CREATED AUTHOR AUTHOR'S ORGANIZ ATION 03/25/2023 [facility] DATE CREATED AUTHOR AUTHOR'S ORGANIZ ATION 07/13/2023 [facility] DATE CREATED AUTHOR AUTHOR'S ORGANIZ ATION 09/01/2023 [facility] Patient Care team informatio n (unrecognized section and content) Infrastructure Director Relationship Specialty Start Date End Date Donna Schroeder, PROCESS LABORATORY SPECIALIST-MASTER CERTIFIED RV TECHNICIAN [address] [place] [address] PCP - General Nurse Practitioner 03/24/23 Reason [...] BE BASED ON THE PRIMARY CLINICAL RECORDS. [employer] provides no warranty or guarantee of the accuracy or completeness of information in this document.
[2023-09-27 08:46] LABS: HCG Qualitative NEGATIVE (NEGATIVE); Internal Control Within Normal Limits
[2023-09-27 08:50] LABS: Glucometer 109 mg/dL (74-106)
[2023-09-27] MEDS: LACTATED RINGER'S SOLUTION 1,000 ML 50 ML IV ×2 (08:54→12:03)
[2023-09-27] MEDS: FAMOTIDINE/PF 20 MG/2 ML VIAL IV (09:26)
[2023-09-27] MEDS: CEFAZOLIN SODIUM/DEXTROSE,ISO 2 GM/50 ML PIGGYBACK IV (10:45)
--- NOTE | 2023-09-27 11:13 | XR_ITS ---
The [address] [address] Patient Name: ARY WRIGHT MRN: [id number] date: 1985 Sex: F Assigned Patient Location: [facility] Current Patient Location: Accession/Order Number: [id number] Exam Date: 09/27/2023 13:20 Report Date: 09/28/2023 05:05 At the request of: ELLIE THOMAS Procedure: XR foot LT min 3V PROCEDURE: XR foot LT min 3V HISTORY: hallux valgus COMPARISON: XR foot bilateral 09/12/2023 FINDINGS: BONES:Bunionectomy and fusion of the first metatarsophalangeal joint via dorsal plate and screws; no appreciable hardware fracture or loosening. Stable calcaneal small degenerative enthesophytes. Stable separate ossifications dorsal to the talonavicular joint; likely sequela of remote injury. SOFT TISSUES:Images were obtained to cast material. EFFUSION:None visible. OTHER: Negative. XR/XR foot LT min 3V IMPRESSION: 1. Mechanical fusion the first metatarsophalangeal joint. Electronically authenticated by: DIRK BEAVERS Date: 09/28/2023 05:05
[2023-09-27] MEDS: LIDOCAINE HCL 1% 100 MG/10 ML MDV INJ (11:46)
[2023-09-27] MEDS: BUPIVACAINE HCL 0.5% PF 50 MG/10 ML VIAL INJ (11:47)
--- NOTE | 2023-09-27 12:18 | PM.ORONB ---
Brief Operative Note Date of procedure: 09/27/23 Pre-op diagnosis general: Left hallux valgus Post-op diagnosis: same as pre-op Procedure: Procedure performed: First metatarsophalangeal joint fusion, left Indication for procedure: Patient is a 37-year-old female with well-controlled type 2 diabetes with worsening pain and deformity associated with her left great toe. In the office she related to difficulties with finding comfortable shoes and pain over the last year has become more severe. Pain primarily at the medial eminence of the great toe and although she had 5th contracture it was nonpainful. She attempted shoe/activity modification, OTC pain medicine rest and ice without much help therefore wish to have her great toe fixed surgically. I discussed potential risks and benefits of surgical intervention as well as the postoperative course and patient wish to undergo the above procedure. Intraoperative findings: Left great toes in a valgus position with a prominent medial eminence. Toes 2, 3 and 4 are rectus and fifth toe was in adductovarus position. Bone quality was within normal limits given patient's age and gender. There was surrounding synovitis around the first metatarsophalangeal joint and the medial eminence. Procedure in detail: Patient was identified in pre op and consent was reviewed. Correct side and site were identified and marked. Pre-op antibiotics were started. Patient was brought to OR suite and place on table in a supine position. General anesthesia was administered. Calf tourniquet applied. Operative extremity was prepped and draped in usual sterile fashion. Formal time-out was performed and the foot/ankle were exsanguinated and tourniquet inflated. Local anesthesia was administered with 10 cc of 1% lidocaine plain and 10 cc of 0.5% Marcaine plain injected as a standard first ray block. Incision created over dorsal aspect of the 1st MPJ. Bleeders coagulated. EHL protected throughout the procedure. Capsulotomy performed and McGlammry elevator inserted into 1st MPJ. Guide Pin place in 1st metatarsal head. Conical reamers used on 1st metatarsal head to remove cartilage and subchondral bone. Guide pin removed. Conical reamers used on proximal phalanx in a similar manner. 2.0 mm drill used to on each side of the joint. The site was irrigated. 1cc of bone allograft was packed into the fusion site and a stab incision was placed on the medial aspect of the great toe. A guidepin was drilled from the medial proximal phalanx base across the joint into the first metatarsal under fluoroscopic guidance. Then a 3.5 mm cannulated screw was placed accordingly noting compression across the joint. A 3.[address] over the fusion site and temporarily fixed. Then remotely piloted vehicle controller holes were drilled for locking 3.5 mm screws which were measured and placed according to the manufactor's standard directions. Again position was checked under fluoroscopy as well as on the table. Temporary fixation was removed and additional screws were placed. Surgical site was irrigated with copious saline and deep fascia was closed with observable suture and the tourniquet was deflated with a prompt hyperemic response. The stab incision was closed with skin suture and the primary incision was closed in layers. A dry sterile dressing consisting of Xeroform on the incisions followed by 4 x 4 gauze, ABDs, and Kerlix were applied. Multiple layers of cast padding were then applied to ensure all bony prominences were well-padded. A plaster posterior splint was then applied which was held in place by Ian wraps. Capillary refill time to all digits was evaluated and had appropriate response. Postoperative plan: Discharge home under 's care Nonweightbearing left foot Keep splint clean dry and intact until follow-up next week Ice and elevation Prescriptions were sent to your pharmacy electronically Implants: Medline 3.5 mm cannulated interfrag screw and 3.5 mm 1st MPJ plate 1cc of sparc bone allograft Anesthesia: General-LMA Surgeon: German Sands Estimated blood loss (mL): 10 Tourniquet time (min): 66 Pathology: none sent Condition: stable Disposition: PACU
[2023-09-27 13:16] LABS: Glucometer 111 mg/dL (74-106)
== END 2023-09-27 14:07 | disposition home or self-care (01) ==
PROVIDERS: Anesthesiology; PCP Nurse Practitioner; Visit Provider Podiatrist Foot & Ankle Surgery
PROC: (CPT 1480; principal; 2023-09-27 09:35)
DX: M20.12 Hallux valgus (acquired), left foot (principal); J45.909 Unspecified asthma, uncomplicated; I10 Essential (primary) hypertension; E11.9 Type 2 diabetes mellitus without complications; E03.9 Hypothyroidism, unspecified
CPT/HCPCS: 28750; 36415; 73630; 76000; 82948; 84703; C1713; J0665; J0690; J1100; J1170; J1885; J2250; J2405; J2704; J3010

== ENCOUNTER 2023-10-23 10:20 | Outpatient (OUT) | payer OTHER, SELFPAY ==
--- NOTE | 2023-10-23 | XR_ITS ---
The [address] [address] Patient Name: ARY WRIGHT MRN: [id number] date: 1985 Sex: F Assigned Patient Location: Current Patient Location: Accession/Order Number: [id number] Exam Date: 10/23/2023 10:23 Report Date: 10/24/2023 05:29 At the request of: ELLIE THOMAS Procedure: XR foot LT min 3V PROCEDURE: XR foot LT min 3V HISTORY: LEFT FOOT PAIN COMPARISON: XR foot left 09/27/2023 FINDINGS: BONES:Mechanical fusion the first metatarsophalangeal joint via dorsal plate and screws. Prior bunionectomy. No fracture or dislocation. Mild degenerative enthesopathic spurring of the calcaneus. SOFT TISSUES:No visible soft tissue swelling. EFFUSION:None visible. OTHER: Negative. XR/XR foot LT min 3V IMPRESSION: 1. Stable surgical changes without evidence of hardware failure. 2. No acute bone abnormality. Electronically authenticated by: DIRK BEAVERS Date: 10/24/2023 05:29
== END 2023-10-23 10:21 | disposition home or self-care (01) ==
LOC: EC 10:20
PROVIDERS: PCP Nurse Practitioner; Visit Provider Podiatrist Foot & Ankle Surgery
DX: M79.672 Pain in left foot (principal); M24.675 Ankylosis, left foot
CPT/HCPCS: 73630

== ENCOUNTER 2023-12-04 08:50 | Outpatient (OUT) | payer OTHER, SELFPAY ==
--- NOTE | 2023-12-04 | XR_ITS ---
The [address] [address] Patient Name: ARY WRIGHT MRN: [id number] date: 1985 Sex: F Assigned Patient Location: [facility] Current Patient Location: Accession/Order Number: [id number] Exam Date: 12/04/2023 08:55 Report Date: 12/05/2023 06:26 At the request of: ELLIE THOMAS Procedure: XR foot LT min 3V PROCEDURE: XR foot LT min 3V HISTORY: LEFT FOOT PAIN COMPARISON: XR foot left 10/23/2023 FINDINGS: BONES:Mechanical fusion of the first metatarsophalangeal joint via dorsal plate and screws; no appreciable hardware fracture loosening. No bone fracture or dislocation. Mild degenerative enthesopathic spurring of the calcaneus. Stable separate ossification dorsal to the talonavicular joint. SOFT TISSUES:No visible soft tissue swelling. EFFUSION:None visible. OTHER: Negative. XR/XR foot LT min 3V IMPRESSION: 1. Stable surgical changes without evidence of hardware failure or change in alignment. Electronically authenticated by: DIRK BEAVERS Date: 12/05/2023 06:26
--- OUTSIDE RECORDS SUMMARY | 2023-12-04 08:57 | XMS_ITS | CCD ---
Author Organization [facility] Care Team Providers Care Apprentice Funeral Director Name Role Phone DR JOVAN PAT Consulting Unavailable ANGELY, DR JOVAN Caraballo Attending Unavailable PAT, DR JOVAN Caraballo Admitting Unavailable PAT, DR JOVAN Caraballo Primary Care Unavailable Mau Lacey. Primary Care Physician [phone] DONNA SCHROEDER Primary Care Unavailable MARIA FERNANDA CHRISTIANSEN Attending Unavailtrino MORRIS, BELKIS Attending Unavailable ARTURO, BELKIS Referring Unavailable ALEXANDRE, DONNA Jordan Primary Care Unavailable ARTURO, BELKIS Attending Unavailable ARTURO, BELKIS Referring Unavailable ALEXANDRE, DONNA Jordan Primary Care Unavailable Alexandre GI TECHNICIAN-MULTI CARE TECHNICIAN, Donna Jordan Primary Care Provider Alexandre, Donna Jordan Attending Unavailable Alexandre, Donna Jordan Admitting Unavailable Alexandre, Donna Jordan Attending Unavailable Alexandre, Donna Jordan Attending Unavailable ALEXANDRE, DONNA Jordan Referring Unavailable ALEXANDRE, DONNA Jordan Primary Care Unavailable VALERIE DAVALOS Attending Unavailable ALEXANDRE, DONNA Jordan Referring Unavailable ALEXANDRE, DONNA Jodran Primary Care Unavailable JOVAN PAT Referring Unavailable ALEXANDRE, DONNA Jordan Primary Care Unavailable Allergies Allergy Classification Reported Allergen(s) Allergy Type Date of Onset Reaction(s) Facility (3 sources) Codeine; Translations: [CODEINE] Drug Allergy 03-24-2023 [facility] Repository (1 source) Amoxicillin; Translations: [amoxicillin] Drug Allergy [facility] Repository Medications Current Medications Medication Drug Class(es) Dates Sig (Normalized) Sig (Original) 0.25 MG, 0.5 MG Dose 3 ML semaglutide 0.68 MG/ML Pen Injector (1 source) Start: 08-16-2022 inject 0.5 mg by subcutaneous injection every week semaglutide 2 mg/3 mL (0.25 mg or 0.5 mg dose) subcutaneous solution 0.5 mg, SubCutaneous, qWeek, # 3 mL, Refills(s) 0, Pharmacy: [facility]/pharmacy #[id number] Start Date: 08/16/22 Status: Ordered Albuterol (1 [...] mg, SubCutaneous, qWeek, 4 EA, Refill(s) 1, [facility]/pharmacy #[id number], 172.3, cm, 09/06/22 17:10:00 [...] 150 mg Start: 04-18-2023 End: 04-18-2023 medroxyPROGESTERone (DEPO-DC OVERA) injection 150 mg Start: 09-06-2022 inject [...] you for choosing us for your care. 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 will send referral to potato chip packaging machine operator. [place] [facility] 2. Heel pain, bilateral (M79.671: Pain in right foot) both heels are painful especially when on her feet for a while. Or[place] [facility] 3. Pain in left foot (M79.672: Pain in left foot) bunion is now painful on left foot. has had it for years but now it's bothering her Ordered[place] [facility] 4. Diabetes mellitus type II, controlled (E11.9: Type 2 diabetes mellitus without complications) will increase ozempic Ordered: semaglutide, 1 mg, SubCutaneous, qWeek, 4 EA, Refill(s) 1, [id number], 172.3, cm, 09/06/22 17:10:00 EDT, Height/Length Dosing, 92.2, kg, 09/06/22 17:10:00 EDT, Weight Dosing [facility] [place] 5. BMI 36.0-36.9,adult (Z68.36: Body mass index [BMI] 36.0-36.9, adult) BMI education given Ordered: [facility] 6. Non-smoker (Z78.9: Other specified health status) continue not smoking Ordered: semaglutide, 1 mg, SubCutaneous, qWeek, 4 EA, Refill(s) 1, [facility]/pharmacy #[id number], 172.3, cm, 09/06/22 17:10:00 EDT, Height/Length Dosing, 92.2, kg, 09/06/22 17:10:00 EDT, Weight Dosing Orders: semaglutide, 1.7 mg, SubCutaneous, qWeek, # 12 EA, Refills(s) 1, Pharmacy: [facility]/pharmacy #[id number], 172.3, cm, 08/31/23 10:09:00 [...] 09/30/1990 Recorded Hib, unspecified formulation 09/30/[address] [facility] Comment on above: Result Comment: Elec tronically Signed By: Donna Perla\.br\Date and Time Signed: 08/31/23 10:57 EDT Pre-Certification Formon Pre-Certification Form [id number]#[id number] FF [facility] Pre-Certification Formon Pre-Certification Form [id number]#1.00T IFF [facility] CBC AND AUTO DIFFon 03-24-19 ABSOLUTE BASOPHIL 0.1 X10E9/L Normal 0.0-0.2 [facility] Comment on above: Performed By: #### C BCA, CMP, 3040-3, 44712-2, 50051-0, 77242- 5, THYR #### [facility] ([id number]) [address] [place] [address] 58266 ABSOLUTE NEUTROPHIL 3.6 X10E9/L Normal 1.5-6.6 [facility] Comment on above: Performed By: #### C BCA, CMP, 3040-3, 84060-2, 26945-8, 04818- 5, THYR #### [facility] ([id number]) [address] [place] [address] [place] [address] Basophils/100 WBC (Bld) 0.9 % Normal [facility] Comment on above: Performed By: #### C BCA, CMP, 3040-3, 43332-8, 01602-0, 04281- 5, THYR #### [facility] ([id number]) [address] [place] [address] 63341 Eosinophils (Bld) [#/Vol] 0.1 10*3/uL Normal 0.0-0.4 [facility] Comment on above: Performed By: #### C BCA, CMP, 3040-3, 92168-0, 36185-2, 54642- 5, THYR #### [facility] ([id number]) [address] [place] [address] 38737 Eosinophils/100 WBC (Bld) 2.5 % Normal [facility] Comment on above: Performed By: #### C BCA, CMP, 3040-3, 78394-5, 15997-5, 49531- 5, THYR #### [facility] ([id number]) [address] [place] [address] 27033 Erythrocyte distribution width (RBC) [Ratio] 12.7 % Normal 11.5-15.0 [facility] Comment on above: Performed By: #### C BCA, CMP, 3040-3, 41806-2, 42311-9, 37607- 5, THYR #### [facility] ([id number]) [address] [place] [address] 46310 Hematocrit (Bld) [Volume fraction] 43.1 % Normal 35-47 [facility] Comment on above: Performed By: #### C BCA, CMP, 3040-3, 91491-4, 45488-1, 11061- 5, THYR #### [facility] ([id number]) [address] [place] [address] 67014 Hemoglobin (Bld) [Mass/Vol] 14.7 g/dL Normal 11.7-15.5 [facility] Comment on above: Performed By: #### C BCA, CMP, 3040-3, 79250-4, 48759-1, 39296- 5, THYR #### [facility] ([id number]) [address] [place] [address] 67011 Lymphocytes (Bld) [#/Vol] 1.3 10*3/uL Normal 1.0-3.5 [facility] Comment on above: Performed By: #### C BCA, CMP, 3040-3, 81501-4, 25691-5, 33488- 5, THYR #### [facility] ([id number]) [address] [place] [address] 95284 Lymphocytes/100 WBC (Bld) 22.8 % Normal [facility] Comment on above: Performed By: #### C BCA, CMP, 3040-3, 21548-6, 49659-2, 39708- 5, THYR #### [facility] ([id number]) [address] [place] [address] 64015 MCH (RBC) [Entitic mass] 32.9 pg Normal 27-34 [facility] Comment on above: Performed By: #### C BCA, CMP, 3040-3, 66033-4, 76311-0, 19110- 5, THYR #### [facility] ([id number]) [address] [place] [address] 83240 MCHC (RBC) [Mass/Vol] 34.1 g/dL Normal 32-36 [facility] Comment on above: Performed By: #### C BCA, CMP, 3040-3, 77825-4, 14375-4, 86301- 5, THYR #### [facility] ([id number]) [address] [place] [address] 73495 MCV (RBC) [Entitic vol] 97 fL Normal 80-100 [facility] Comment on above: Performed By: #### C BCA, CMP, 3040-3, 49522-6, 25778-7, 76684- 5, THYR #### [facility] ([id number]) [address] [place] [address] 18152 Monocytes (Bld) [#/Vol] 0.6 10*3/uL Normal 0-0.9 [facility] Comment on above: Performed By: #### C BCA, CMP, 3040-3, 31137-6, 25635-8, 55737- 5, THYR #### [facility] ([id number]) [address] [place] [address] 06225 Monocytes/100 WBC (Bld) 10.4 % Normal [facility] Comment on above: Performed By: #### Amari BCA, CMP, 3040-3, 75607-1, 22576-0, 35744- 5, THYR #### [facility] ([id number]) [address] [place] [address] 36762 Neutrophils/100 WBC (Bld) 63.4 % Normal [facility] Comment on above: Performed By: #### C BCA, CMP, 3040-3, 24563-2, 46186-4, 05047- 5, THYR #### [facility] ([id number]) [address] [place] [address] 01610 Platelet mean volume (Bld) [Entitic vol] 8.1 fL Normal 7-12 [facility] Comment on above: Performed By: #### C BCA, CMP, 3040-3, 23723-9, 36810-6, 54271- 5, THYR #### [facility] ([id number]) [address] [place] [address] 39534 Platelets (Bld) [#/Vol] 269 10*3/uL Normal 150-450 [facility] Comment on above: Performed By: #### Amari BCA, CMP, 3040-3, 66017-2, 71266-1, 34298- 5, THYR #### [facility] ([id number]) [address] [place] [address] 39852 RBC COUNT 4.46 X10E12/L Normal 3.80-5.20 [facility] Comment on above: Performed By: #### C BCA, CMP, 3040-3, 17312-4, 59000-4, 75083- 5, THYR #### [facility] ([id number]) [address] [place] [address] 09053 WBC (Bld) [#/Vol] 5.7 10*3/uL Normal 4.0-11.0 [facility] Comment on above: Performed By: #### C BCA, CMP, 3040-3, 97727-2, 09275-8, 83313- 5, THYR #### [facility] ([id number]) [address] [place] [address] 61894 COMPREHENSIVE METABOLIC PANE Jd 03-24-2023 Albumin [Mass/Vol] 4.8 g/dL Normal 3.2-5.3 [facility] Comment on above: Performed By: #### C BCA, CMP, 3040-3, 48045-8, 61468-5, 10606- 5, THYR #### [facility] ([id number]) [address] [place] [address] 84118 ALP [Catalytic activity/Vol] 54 U/L Normal 39-130 [facility] Comment on above: Performed By: #### C BCA, CMP, 3040-3, 70091-6, 70907-6, 90878- 5, THYR #### [facility] ([id number]) [address] [place] [address] 08084 ALT [Catalytic activity/Vol] 24 U/L Normal 0-31 [facility] Comment on above: Performed By: #### C BCA, CMP, 3040-3, 78736-8, 55127-8, 86982- 5, THYR #### [facility] ([id number]) [address] [place] [address] 88346 Anion gap [Moles/Vol] 10 mmol/L Normal 5-15 [facility] Comment on above: Performed By: #### C BCA, CMP, 3040-3, 82191-5, 27499-7, 10122- 5, THYR #### [facility] ([id number]) [address] [place] [address] 07274 AST [Catalytic activity/Vol] 21 U/L Normal 0-41 [facility] Comment on above: Performed By: #### C BCA, CMP, 3040-3, 93279-4, 31536-4, 66531- 5, THYR #### [facility] ([id number]) [address] [place] [address] 29170 Bilirubin [Mass/Vol] 0.9 mg/dL Normal 0.3-1.2 [facility] Comment on above: Performed By: #### C BCA, CMP, 3040-3, 25301-6, 36015-1, 44166- 5, THYR #### [facility] ([id number]) [address] [place] [address] 01779 Calcium [Mass/Vol] 9.0 mg/dL Normal 8.5-10.5 [facility] Comment on above: Performed By: #### C BCA, CMP, 3040-3, 33781-5, 20572-5, 20374- 5, THYR #### [facility] ([id number]) [address] [place] [address] 84804 Chloride [Moles/Vol] 106 mmol/L Normal 98-109 [facility] Comment on above: Performed By: #### C BCA, CMP, 3040-3, 19350-1, 56271-5, 84714- 5, THYR #### [facility] ([id number]) [address] [place] [address] 57769 CO2 [Moles/Vol] 23 mmol/L Normal 22-32 [facility] Comment on above: Performed By: #### C LIMA, CMP, 3040-3, 31818-1, 84670-6, 78316- 5, THYR #### [facility] ([id number]) [address] [place] [address] 91577 Creatinine [Mass/Vol] 0.87 mg/dL Normal 0.40-1.00 [facility] Comment on above: Result Comment: METH OD TRACEABLE TO IDMS STANDARD Performed By: #### C LIMA, CMP, 3040-3, 51272-0, 90567-3, 21529-1, THYR #### [facility] ([id number]) [address] [place] [address] 28181 GFR/1.73 sq M.predicted among non-blacks MDRD (S/P/Bld) [Vol rate/Area] 89 mL/min/{1.73_m2} Normal >59 [facility] Comment on above: Result Comment: Reported eGFR is based on the CKD-EPI 2020 equation that does not use a race coefficient. Performed By: #### C LIMA, CMP, 3040-3, 00940-4, 81909-0, 36284-4, THYR #### [facility] ([id number]) [address] [place] [address] 44100 Glucose [Mass/Vol] 105 mg/dL High 65-99 [facility] Comment on above: Performed By: #### C BCA, CMP, 3040-3, 46052-8, 30415-7, 78458- 5, THYR #### [facility] ([id number]) [address] [place] [address] 50176 Potassium [Moles/Vol] 3.8 mmol/L Normal 3.5-5.0 [facility] Comment on above: Performed By: #### C BCA, CMP, 3040-3, 05477-8, 56314-3, 40724- 5, THYR #### [facility] ([id number]) [address] [place] [address] 39014 Protein [Mass/Vol] 7.7 g/dL Normal 6.0-8.0 [facility] Comment on above: Performed By: #### C BCA, CMP, 3040-3, 98329-6, 20264-5, 06599- 5, THYR #### [facility] ([id number]) [address] [place] [address] 80516 Sodium [Moles/Vol] 139 mmol/L Normal 134-146 [facility] Comment on above: Performed By: #### C BCA, CMP, 3040-3, 45181-1, 98372-4, 98551- 5, THYR #### [facility] ([id number]) [address] [place] [address] 09300 Urea nitrogen [Mass/Vol] 12 mg/dL Normal 5-23 [facility] Comment on above: Performed By: #### C BCA, CMP, 3040-3, 44808-4, 32778-4, 65286- 5, THYR #### [facility] ([id number]) [address] [place] [address] ABDOMEN AND PELVIS W CONT on [...] Mitchell MD on 03/24/2023 11:09 AM Normal [facility] Fibrin D-dimer DDU (PPP) [Ma ss/Vol]on 03-24-2023 D DIMER <150 Normal <255 [facility] Comment on above: Result Comment: Results <255 ng/mL DDU: The presence of a VTE can safely be excluded with a negative D-Dimer result and Wells score. A negative result doesn't exclude the possibility of DIC. The test be repeated along with other diagnostic tests if the patient's symptoms persist or worsen. [email or web address] Performed By: #### C JORGE AMATO, 3040-3, 09418-1, 10632-2, 41132-6, THYR #### [facility] ([id number]) [address] [place] [address] 37103 HCG ( test) Ql (U)o n 03-24-2023 Beta HCG ( test) Ql (U) Negative Normal NEG [facility] Comment on above: Performed By: #### C JORGE AMATO, 3040-3, 25477-0, 57839-5, 82216- 5, THYR #### [facility] ([id number]) [address] [place] [address] 92991 LIPASEon 03-24-2023 Lipase [Catalytic activity/Vol] 44 U/L High 17-40 [facility] Comment on above: Performed By: #### C BCA, CMP, 3040-3, 44239-5, 65681-2, 99181- 5, THYR #### [facility] ([id number]) [address] [place] [address] 18239 MAGNESIUMon 03-24-2023 Magnesium [Mass/Vol] 2.1 mg/dL Normal 1.8-2.6 [facility] Comment on above: Performed By: #### C BCA, CMP, 3040-3, 03420-8, 67858-5, 81323- 5, THYR #### [facility] ([id number]) [address] [place] [address] 42456 THYROID PROFILEon 03-24-2023 Free T4 [Mass/Vol] 0.88 ng/dL Normal 0.61-1.60 [facility] Comment on above: Performed By: #### C BCA, CMP, 3040-3, 98744-6, 52553-5, 48561- 5, THYR #### [facility] ([id number]) [address] [place] [address] 21433 TSH 1.29 uIU/mL Normal 0.49-4.67 [facility] Comment on above: Performed By: #### C BCA, CMP, 3040-3, 59857-4, 21296-4, 54766- 5, THYR #### [facility] ([id number]) [address] [place] [address] 25107 TROPONIN Ion 03-24-2023 Troponin I.cardiac [Mass/Vol] ng/mL Normal 0.00-0.04 [facility] Comment on above: Performed By: #### C BCA, CMP, 3040-3, 60237-3, 26567-6, 18701- 5, THYR #### [facility] ([id number]) [address] [place] [address] 73773 URN MACROSCOPIC NURon 2023 BILIRUBIN ANNE Negative Normal NEG [facility] Comment on above: Performed By: #### N UM #### [facility] ([id number]) [address] [place] [address] [place] [address] BLOOD/HGB ANNE Negative Normal NEG [facility] Comment on above: Performed By: #### N UM #### [facility] ([id number]) [address] [place] [address] [place] [address] GLUCOSE ANNE Negative Normal NEG [facility] Comment on above: Performed By: #### N UM #### [facility] ([id number]) [address] [place] [address] [place] [address] KETONES ANNE Negative Normal NEG [facility] Comment on above: Performed By: #### N UM #### [facility] ([id number]) [address] [place] [address] [place] [address] LEUKOCYTE ESTERASE ANNE Negative Normal NEG [facility] Comment on above: Performed By: #### N UM #### [facility] ([id number]) [address] [place] [address] [place] [address] NITRITE ANNE Negative Normal NEG [facility] Comment on above: Performed By: #### N UM #### [facility] ([id number]) [address] [place] [address] [place] [address] PH ANNE 5.5 Normal 5.0-8.5 [facility] Comment on above: Performed By: #### N UM #### [facility] ([id number]) [address] [place] [address] [place] [address] PROTEIN ANNE Negative Normal NEG [facility] Comment on above: Performed By: #### N UM #### [facility] ([id number]) [address] [place] [address] [place] [address] SPECIFIC GRAVITY ANNE 1.010 Normal 1.003-1.035 [facility] Comment on above: Performed By: #### N UM #### [facility] ([id number]) [address] [place] [address] 05281 UROBILINOGEN ANNE 0.2 eu/dL Normal <1.1 [facility] Comment on above: Performed By: #### N UM #### [facility] ([id number]) [address] [place] [address] 67619 XR CHEST 1 VWon 03-24-2023 XR CHEST [...] Pinto MD on 03/24/2023 10:39 AM Normal [facility] Reminderson 09-08-2022 Reminders - From: Donna Perla To: [facility] - Clinical; Sent: 09/08/2022 07:38:15 EDT Show up: 09/08/2022 07:38:00 EDT Subject: Ambulatory Reminder Due Date/Time: 09/09/2022 07:37:00 EDT Let pt know her labs were all normal. GWRMC1P is 5.3 Results: Date Result Name Ind [...] 30.1 % (14.0 - 50.0) 09/06/2022 17:35 Dale Auto 6.5 % (4.0 - 14.0) 09/06/2022 17:35 Eos Auto 0.9 % (0.0 - 8.0) 09/06/2022 17:35 Basophil Auto 0.8 % (0.0 - 2.0) 09/06/2022 17:35 Neutro Absolute 3.6 E9/L (2.0 - 7.5) 09/06/2022 17:35 Lymph Absolute 1.8 E9/L (1.0 - 4.0) 09/06/2022 17:35 Dale Absolute 0.4 E9/L (0.2 - 1.0) 09/06/2022 [...] 5.60) notified patient of message below Normal [facility] Auto Diffon 09-07-2022 Basophils/100 WBC (Bld) 0.8 % Normal 0.0-2.0 [facility] Comment on above: Order Comment: Order Added by Discern Expert. Performed By: #### 2 795303, 3367545, 2971430, 1842558, 285772042, 4842705, 81972881 #### [facility] [address] [place] [address] 84670 Basophils/Leukocyt es Auto (Bld) [Pure # fraction] 0.0 E9/L Normal 0.0-0.2 [facility] Comment on above: Order Comment: Order Added by Discern Expert. Performed By: #### 2 227265, 0972442, 6825607, 2758650, 763146532, 8916996, 93036024 #### [facility] [address] [place] [address] 37292 Eosinophils/100 WBC (Bld) 0.9 % Normal 0.0-8.0 [facility] Comment on above: Order Comment: Order Added by Discern Expert. Performed By: #### 2 447697, 7052824, 5531649, 5418958, 416558360, 2252409, 19093203 #### [facility] [address] [place] [address] 68547 Eosinophils/Leukoc ytes Auto (Bld) [Pure # fraction] 0.1 E9/L Normal 0.0-0.5 [facility] Comment on above: Order Comment: Order Added by Discern Expert. Performed By: #### 2 384502, 2989529, 3651270, 2056110, 579767999, 1740011, 59878057 #### [facility] [address] [place] [address] 92189 Lymphocytes/100 WBC (Bld) 30.1 % Normal 14.0-50.0 [facility] Comment on above: Order Comment: Order Added by Discern Expert. Performed By: #### 2 475500, 9181769, 9948191, 5360986, 260439886, 2986071, 44187025 #### [facility] [address] [place] [address] 33898 Lymphocytes/Leukoc ytes Auto (Bld) [Pure # fraction] 1.8 E9/L Normal 1.0-4.0 [facility] Comment on above: Order Comment: Order Added by Discern Expert. Performed By: #### 2 312788, 4140663, 9971785, 2249169, 985567379, 5123893, 15267036 #### [facility] [address] [place] [address] 52837 Monocytes/100 WBC (Bld) 6.5 % Normal 4.0-14.0 [facility] Comment on above: Order Comment: Order Added by Discern Expert. Performed By: #### 2 411518, 7346118, 9634335, 6506230, 499048159, 0154322, 75663244 #### [facility] [address] [place] [address] 79112 Monocytes/Leukocyt es Auto (Bld) [Pure # fraction] 0.4 E9/L Normal 0.2-1.0 [facility] Comment on above: Order Comment: Order Added by Discern Expert. Performed By: #### 2 741758, 0957233, 0217022, 3279226, 894987326, 9574896, 69870999 #### [facility] [address] [place] [address] 39064 Neutrophils/100 WBC (Bld) 61.7 % Normal 36.0-75.0 [facility] Comment on above: Order Comment: Order Added by Discern Expert. Performed By: #### 2 [id number], [id number] #### [facility] [address] [place] [id number] Neutrophils/Leukoc ytes Auto (Bld) [Pure # fraction] 3.6 E9/L Normal 2.0-7.5 [facility] Comment on above: Order Comment: Order Added by Discern Expert. Performed By: #### [id number], [id number], [id number], [id number], [id number], [id number] #### [facility] [address] [place] [address] CBC w/ Auto Diffon 3 Erythrocyte distribution width (RBC) [Ratio] 14.4 % High 10.9-14.2 [facility] Comment on above: Performed By: #### 2 500730, 5898671, 6397135, 1091352, 729274044, 4106949, 09044378 #### [facility] [address] [place] [address] Hematocrit (Bld) [Volume fraction] 43.4 % Normal 34.0-46.0 [facility] Comment on above: Performed By: #### 2 172552, 9678660, 9921368, 3398691, 628826408, 1509004, 34019511 #### [facility] [address] [place] [address] Hemoglobin (Bld) [Mass/Vol] 14.0 g/dL Normal 12.0-16.0 [facility] Comment on above: Performed By: #### 2 109907, 2870698, 6719700, 3163566, 007060521, 6126355, 56117832 #### [facility] [address] [place] [address] MCH (RBC) [Entitic mass] 33.3 pg Normal 27.0-34.0 [facility] Comment on above: Performed By: #### 2 734343, 8205481, 2559962, 9034765, 167575933, 5788558, 65430507 #### [facility] [address] [place] [address] MCHC (RBC) [Mass/Vol] 32.4 g/dL Normal 31.4-36.0 [facility] Comment on above: Performed By: #### 2 711893, 1889725, 0947142, 9375612, 747950037, 7234794, 87652324 #### [facility] [address] [place] [address] MCV (RBC) [Entitic vol] 102.8 fL High 80.0-100.0 [facility] Comment on above: Performed By: #### 2 675622, 3058278, 2203106, 5118309, 137898731, 9735856, 16964811 #### [facility] [address] [place] [address] Platelet mean volume (Bld) [Entitic vol] 9.3 fL Normal 6.4-10.8 [facility] Comment on above: Performed By: #### 2 789528, 7751939, 0391075, 2674959, 590355655, 8300241, 21223756 #### [facility] [address] [place] [address] Platelets (Bld) [#/Vol] 264.0 E9/L Normal 150.0-500.0 [facility] Comment on above: Performed By: #### 2 611850, 9488397, 5561673, 8573279, 712110406, 5348272, 98895536 #### [facility] [address] [place] [address] RBC (Bld) [#/Vol] 4.2 E12/L Low 4.3-5.9 [facility] Comment on above: Performed By: #### 2 005077, 7848172, 6011771, 6437375, 723057048, 4205109, 93551264 #### [facility] [address] [place] [address] WBC corrected for nucl RBC Auto (Bld) [#/Vol] 5.9 E9/L Normal 4.0-11.0 [facility] Comment on above: Performed By: #### 2 044801, 6221687, 0798840, 5270265, 247112345, 2058186, 26930969 #### [facility] [address] [place] [address] CMPon 09-07-2022 Albumin [Mass/Vol] 4.3 g/dL Normal 3.3-5.0 [facility] Comment on above: Performed By: #### 2 742133, 7934724, 9878740, 5818601, 659679514, 3593045, 62879903 #### [facility] [address] [place] [address] Albumin/Globulin (S) [Mass conc ratio] 1.6 Normal 1.1-2.2 [facility] Comment on above: Performed By: #### 2 443018, 0376224, 6856037, 4919728, 282572011, 4705487, 94580162 #### [facility] [address] [place] [address] ALP [Catalytic activity/Vol] 41 Int._Unit/L Normal 21-98 [facility] Comment on above: Performed By: #### 2 370504, 1849591, 0599745, 6499496, 366685776, 9549629, 67162786 #### [facility] [address] [place] [address] ALT No additional P-5'-P [Catalytic activity/Vol] 27 Int._Unit/L Normal 6-46 [facility] Comment on above: Performed By: #### 2 532019, 3838177, 5979356, 7181133, 683633850, 1078640, 94092799 #### [facility] [address] [place] [address] Anion gap [Moles/Vol] 11 mmol/L Normal 6-16 [facility] Comment on above: Performed By: #### 2 100057, 9749448, 7964539, 7829397, 168914718, 1971667, 13957214 #### [facility] [address] [place] [address] AST [Catalytic activity/Vol] 25 Int._Unit/L Normal 5-43 [facility] Comment on above: Performed By: #### 2 727203, 3700745, 1368323, 4431802, 252321058, 1671331, 39578068 #### [facility] [address] [place] [address] Bilirubin [Mass/Vol] 0.8 mg/dL Normal 0.0-1.1 [facility] Comment on above: Performed By: #### 2 328511, 0953295, 0593059, 1074590, 867958878, 9241581, 06497367 #### [facility] [address] [place] [address] Calcium [Mass/Vol] 9.1 mg/dL Normal 8.9-11.1 [facility] Comment on above: Performed By: #### 2 907403, 3702076, 4757345, 1112767, 399897662, 2887912, 78740009 #### [facility] [address] [place] [address] Chloride [Moles/Vol] 109 mmol/L Normal 101-111 [facility] Comment on above: Performed By: #### 2 523104, 7586737, 2769340, 7366389, 623224823, 5641078, 07471010 #### [facility] [address] [place] [address] CO2 [Moles/Vol] 23 mmol/L Normal 21-31 [facility] Comment on above: Performed By: #### 2 303678, 0847992, 3463304, 4810153, 950714045, 2859006, 02663280 #### [facility] [address] [place] [address] Creatinine [Mass/Vol] 0.8 mg/dL Normal 0.5-1.3 [facility] Comment on above: Performed By: #### 2 989728, 0855630, 6244462, 1303978, 870405219, 8588583, 75434092 #### [facility] [address] [place] [address] Globulin (S) [Mass/Vol] 2.7 g/dL Normal 1.4-4.0 [facility] Comment on above: Performed By: #### 2 613944, 0796781, 7055227, 9157224, 844008127, 6799024, 16736332 #### [facility] [address] [place] [address] Glucose [Mass/Vol] 106 mg/dL Normal 55-199 [facility] Comment on above: Result Comment: If t his glucose result represents a fasting glucose, interpretation should refer to the following reference range: 55-99 mg/dL Performed By: #### 2 457020, 0000194, 9201187, 7309210, 120957251, 5833317, 09940432 #### [facility] [address] [place] [address] Potassium [Moles/Vol] 3.6 mmol/L Normal 3.5-5.3 [facility] Comment on above: Performed By: #### 2 653353, 6555585, 4092354, 2363051, 655111512, 1515197, 85491976 #### [facility] [address] [place] [address] Protein [Mass/Vol] 7.0 g/dL Normal 6.0-7.8 [facility] Comment on above: Performed By: #### 2 076123, 5618047, 0892344, 7754178, 438396364, 7266193, 60584825 #### [facility] [address] [place] [address] Sodium [Moles/Vol] 139 mmol/L Normal 135-145 [facility] Comment on above: Performed By: #### 2 862311, 6962999, 9562279, 0145507, 239661033, 1460677, 16596657 #### [facility] [address] [place] [address] Urea nitrogen [Mass/Vol] 10 mg/dL Normal 5-21 [facility] Comment on above: Performed By: #### 2 005576, 9341529, 2439872, 3804263, 331052001, 1313317, 99054860 #### [facility] [address] [place] [address] Urea nitrogen/Creatinin e [Mass ratio] 12 No Units Normal 10-20 [facility] Comment on above: Performed By: #### 2 612878, 9993489, 8189718, 7439284, 106127116, 5725267, 41993376 #### [facility] [address] [place] [address] [id number] 09-07-2022 HbA1c (Bld) [Mass fraction] 5.3 % Normal <=5.9 [facility] Comment on above: Performed By: #### 2 200850, 3821215, 7448216, 9465883, 481164094, 1067647, 40973471 #### [facility] [address] [place] [address] Lipid Panelon 09-07-2022 Cholesterol [Mass/Vol] 133 mg/dL Normal 120-200 [facility] Comment on above: Performed By: #### 2 159631, 5552951, 3478251, 7647490, 224113376, 5833189, 56648314 #### [facility] [address] [place] [address] Cholesterol in HDL [Mass/Vol] 60 mg/dL Invalid Interpretation Code [facility] Comment on above: Result Comment: HDL > or equal to 60 mg/dL: Low cardiovascular risk HDL < 40 mg/dL : High cardiovascular risk Performed By: #### 2 949338, 2259589, 1928683, 3475436, 535745943, 0895144, 17546196 #### [facility] [address] [place] [address] Cholesterol in LDL [Mass/Vol] 59 mg/dL Normal <=129 [facility] Comment on above: Performed By: #### 2 245086, 6243590, 4090297, 0887711, 007901299, 5423689, 05192213 #### [facility] [address] [place] [address] Cholesterol in VLDL [Mass/Vol] 8 mg/dL Normal 7-40 [facility] Comment on above: Performed By: #### 2 486161, 9109363, 1064591, 6447957, 499646685, 8551510, 90790378 #### [facility] [address] [place] [address] Triglyceride [Mass/Vol] 41 mg/dL Normal <=149 [facility] Comment on above: Performed By: #### 2 874654, 3177674, 0239958, 5573631, 170674236, 4336764, 04084701 #### [facility] [address] [place] [address] TSHon 09-07-2022 TSH Qn 0.74 m[IU]/L Normal 0.34-5.60 [facility] Comment on above: Performed By: #### 2 560767, 4714933, 9335515, 3236898, 031324139, 4797094, 80423158 #### [facility] [address] [place] [address] eGFRon 09-07-2022 GFR/1.73 sq M.predicted among non-blacks MDRD (S/P/Bld) [Vol rate/Area] 99 mL/min/1.73 m2 Normal >=59 [facility] Comment on above: Order Comment: Order added by Discern Expert. Result Comment: Brewery Representative siobhan kidney disease could be indicated at eGFR's of less than 60 mL/min/1.73m2. Kidney failure is indicated at less than 15 mL/min/1.73m2. 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 Normal [facility] Comment on above: Result Comment: Elec tronically Signed By: Donna Perla\.br\Date and Time Signed: 09/06/22 17:32 EDT Covid-19 PCR (CVDTB)on 09-26 SARS-CoV-2 (COVID-19) RNA MIKE+probe Ql (Unsp spec) Not detected Normal NOT DETECTED [facility] Comment on above: Result Comment: This test is not yet approved or cleared by the [place] FDA. When there are no FDA-approved or cleared tests available, and other criteria are met, FDA can make tests available under an emergency access mechanism called an Emergency Use Authorization (EUA). The EUA for this test is supported by the [place] of Health and Human Service's (HHS's) declaration [...] Performed By: #### C VDTBH, CVDAGS #### [facility] [address] [place], [place] [address] Marilee Sheridan SYMPTOMATIC COVID-19 ANTIGEN on 10-12-2020 EUA Statement SEE BELOW Normal [facility] Comment on above: Result Comment: This [...] is revoked sooner. Performed By: #### C VDTBH, CVDAGS #### [facility] [address] [place], [place] [address] Marilee Sheridan SARS-CoV-2 (COVID-19) RNA MIKE+probe Ql (Unsp spec) Negative Normal NEGATIVE [facility] Comment on above: Result Comment: CONF IRMATION BY PCR PENDING PER CDC GUIDELINES/ SYMPTOMATIC PATIENT. Performed By: #### C JOSLYNTB, CVDAGS #### [facility] [address] [place], [place] [address] Marilee Sheridan Encounters Encounter Date Encounter Type Care Provider Facility Start: 10-04-2023 End: 10-04-2023 ambulatory VALERIE DAVALOS [facility] Start: 08-31-2023 End: 08-31-2023 ambulatory [facility] Facility:[facility] Start: 07-11-2023 End: 07-11-2023 ambulatory [facility] Start: 04-18-2023 End: 04-18-2023 ambulatory [facility] Mathematics Instructor [facility] Comment on above: Encounter for survei llance of injectable contraceptive (Primary Dx) Start: 03-24-2023 End: 03-25-2023 Emergency department patient visit BELK[facility] Start: 09-06-2022 End: 09-06-2022 Lab Drop off Donna Schroeder [facility] Start: 09-06-2022 End: 09-06-2022 ambulatory Donna Schroeder [place] Start: 10-12-2020 End: 10-13-[address] JOVAN PAT Facility: Procedures Date Procedure Procedure Detail Performing Clinician Start: 11-13-2022 Adult depression scr eening assessment [facility] Mathematics Instructor Start: 05-16-2021 Microscopic observat ion [Identifier] in Cervix by Cyto stain [facility] Mathematics Instructor section Donna Schroeder Plan of Treatment Date Care Activity Detail Author Start: 05-16-2024 Screening for malign ant neoplasm of cervix Pap Smear [facility] Start: 03-24-2024 Adult BMI Screening Adult BMI Screen ing [facility] Start: 03-24-2024 Tobacco Screening Tobacco Screening [facility] Start: 11-14-2023 Adult BMI Follow Up Plan Adult BMI Follow Up Plan [facility] Start: 11-14-2023 Depression Screening Depression Scre ening [facility] Start: 07-11-2023 End: 07-11-2023 ambulatory 07/11/2023 8:15 AM EDT Nurse Injection [facility] [address] [place] [address] [facility] Start: 03-17-2023 DTaP,Tdap and Td Vaccines (7 - Td or Tdap) DTaP,Tdap and Td Vaccines (7 - Td or Tdap) [facility] Immunizations Immunization Date Immunization Notes Care Provider Kathy roque 01-10-2021 SARS-CoV-2 (COVID-19 ) mRNA-1273 vaccine Donna Schroeder [facility] Comment on above: Result Comment: 2022: TPVAL 05-21-2020 SARS-CoV-2 (COVID-19 ) mRNA-1273 vaccine Donna Alexandre [facility] Comment on above: Result Comment: 2022: TPV23 04-21-2020 SARS-CoV-2 (COVID-19 ) mRNA-1273 vaccine Donna Alexandre [facility] Comment on above: Result Comment: 2022: TPV23 01-25-2019 influenza virus vaccine, unspecified formulation Donna Alexandre [facility] 03-17-2013 influenza virus vaccine, unspecified formulation Donna Alexandre [facility] 03-17-2013 measles, mumps and rubella virus vaccine Donna Alexandre [facility] 03-17-2013 tetanus toxoid, redu jose diphtheria toxoid, and acellular pertussis vaccine, adsorbed Donna Alexandre [facility] 06-19-2010 tetanus toxoid, redu jose diphtheria toxoid, and acellular pertussis vaccine, adsorbed Donna Alexandre [facility] 04-14-1999 measles, mumps and rubella virus vaccine Donna Alexandre [facility] 09-30-1990 Hib, unspecified formulation Donna Alexandre [facility] 09-30-1990 measles, mumps and rubella virus vaccine Donna Alexandre [facility] Payers Date Payer Category Payer Private Health Insurance [id number] [facility] [id number] 2010-Present [phone] [address] [address] [place] [address] [id number] 2010 Private Health Insurance [id number] 2002 Medicaid [employer] [employer] [employer] [id number] 2002-Present [phone] [address] [place] [address] [id number] 1987 Unknown [id number] [id number]. 593 1987 Unknown [id number] 2.16.840.1.531154.3.579.2. 1286 1987 Unknown [id number] 2.16.840.1.385790.3.579.2. 1286 1987 Unknown [id number] 2.16.840.1.649640.3.579.2. 1286 1987 Unknown [id number] 2.16.840.1.013249.3.579.2. 727 1987 Unknown [id number] 2.16.840.1.627578.3.579.2. 727 1987 Unknown [id number] 2.16.840.1.731826.3.579.2. 727 1987 Unknown [id number] 2.16.840.1.122086.3.579.2. 1286 1987 Unknown [id number] 2.16.840.1.354700.3.579.2. 1286 1987 Unknown [id number] 2.16.840.1.081008.3.579.2. 1286 1959 Unknown [id number] Social History Date Type Detail Facility Start: 03-28-2022 End: 09-06-2022 Tobacco smoking status Never smoked tobacco (finding) [facility]abe [facility] Tobacco [facility] status [facility] Start: 03-24-2020 End: 11-13-2022 Sex Assigned At Female [facility] Start: 03-28-2022 Tobacco use and exposure Smokeless tobacco non-user [facility] Start: 03-24-2023 Alcohol intake Current drinke r of alcohol (finding) [facility] Start: 03-24-2020 End: 11-13-2022 History of Social function [facility] Work Phone: How often to you hav e a drink containing alcohol? Monthly or less [facility] Work Phone: How many standard drinks containing alcohol do you have on a typical day? 1 or 2 [facility] How often do you hav e 6 or more drinks on 1 occasion? Never [facility] Start: 03-05-[address] [facility] Start: 1985 Sex Assigned At Female [facility] Start: 02-21-2021 Gender identity Identifies as female gender (finding) [facility] Start: 02-21-2021 Sexual orientation Heterosexual (fin ding) [facility] History of Present illness Narrative 04-18-2023 Jody [...] Depo calendar given. documented in this encounter [facility] Evaluation + Plan note 09-06-2022 Note Date & Type Note Facility 09-06-2022 [facility] + [facility] 09/06/22Comprehensive Metabolic Panel 09/06/22Lipid Panel 09/06/22Thyroid Stimulating Hormone 09/06/2273RzzM3k 09/06/22 [facility] Evaluation note Note Date & Type Note Facility Evaluation note Diagnosis Encounter for surveillance of injectable contraceptive- Primary documented in this encounter [facility] Hospital course Narrative Note Date & Type Note Facility Hospital course Narrative No data available for this section [facility] Hospital Discharge instructions Note Date & Type Note Facility Hospital Discharge instructions No data available for this section [facility] Instructions Note Date & Type Note Facility Instructions Not on filedocumented in this en counter [facility] Progress note Note Date & Type Note Facility Progress note No data available for this section [facility] Summary Purpose Family History No Family History Records FoundNo Family History Records FoundNo Family History Records FoundNo Family History Records Found Advance Directives No Advanced Directives Records FoundNo Advanced Directives Records FoundNo Advanced Directives Records FoundNo Advanced Directives Records Found Additional Source Comments INFORMATION SOURCE (unrecogn ized section and content) DATE CREATED AUTHOR 11/01/2020 [facility] DATE CREATED AUTHOR AUTHOR'S ORGANIZ ATION 03/25/2023 [facility] DATE CREATED AUTHOR AUTHOR'S ORGANIZ ATION 09/01/2023 [facility] DATE CREATED AUTHOR AUTHOR'S ORGANIZ ATION 10/06/[address] [facility] Patient Care team informatio n (unrecognized section and content) Apprentice Funeral Director Relationship Specialty Start Date End Date Donna Schroeder, GI TECHNICIAN-MULTI CARE TECHNICIAN [address] [place] [address] PCP - General Nurse Practitioner 03/24/23 Reason [...] BE BASED ON THE PRIMARY CLINICAL RECORDS. [facility]. provides no warranty or guarantee of the accuracy or completeness of information in this document.
== END 2023-12-04 08:51 | disposition home or self-care (01) ==
LOC: RAD 08:50
PROVIDERS: PCP Nurse Practitioner; Visit Provider Podiatrist Foot & Ankle Surgery
DX: M20.12 Hallux valgus (acquired), left foot (principal); M24.675 Ankylosis, left foot
CPT/HCPCS: 73630

== ENCOUNTER 2024-01-29 15:15 | Outpatient (OUT) | payer OTHER, SELFPAY ==
--- NOTE | 2024-01-29 15:18 | XR_ITS ---
The [address] [address] Patient Name: ARY WRIGHT MRN: [id number] date: 1985 Sex: F Assigned Patient Location: [facility] Current Patient Location: Accession/Order Number: [id number] Exam Date: 01/29/2024 15:35 Report Date: 01/30/2024 08:00 At the request of: ELLIE THOMAS Procedure: XR foot LT min 3V PROCEDURE: XR foot LT min 3V COMPARISON: 12/04/2023 HISTORY: Left foot pain FINDINGS: BONES:Stable fusion the first metatarsal-phalangeal joint with a dorsal plate and screws, no significant bone formation. No acute fracture or dislocation. Enthesopathic spurring of the calcaneus. SOFT TISSUES:Negative. No visible soft tissue swelling. EFFUSION:None visible. OTHER: Negative. XR/XR foot LT min 3V IMPRESSION: Stable first metatarsal-phalangeal joint fusion Electronically authenticated by: JAMES EVANS Date: 01/30/2024 08:00
--- OUTSIDE RECORDS SUMMARY | 2024-01-29 15:41 | XMS_ITS | CCD ---
Author Organization [facility] Care Team Providers Care Finance Accounting Internship Name Role Phone DR JOVAN PAT Consulting Unavailable PAT, DR JOVAN Caraballo Attending Unavailable PAT, DR JOVAN Caraballo Admitting Unavailable PAT, DR JOVAN Caraballo Primary Care Unavailable Mau Lacey. Primary Care Physician Alexandre COLLECTIONS REPRESENTATIVE-WINCH DERRICK OPERATOR, Donna Jordan Primary Care Provider Donna Felton Attending Unavailable Alexandre, Donna Jordan Admitting Unavailable Alexandre, Donna Jordan Attending Unavailable Alexandre, Donna Jordan Attending Unavailable ALEXANDRE, DONNA Jordan Referring Unavailable ALEXANDRE, DONNA Jordan Primary Care Unavailable VALERIE DAVALOS Attending Unavailable ALEXANDRE, DONNA Jordan Referring Unavailable ALEXANDRE, DONNA Jordan Primary Care Unavailable ALEXANDRE, DONNA Jordan Referring Unavailable ALEXANDRE, DONNA Jordan Primary Care Unavailable JOVAN PAT Referring Unavailable ALEXANDRE, DONNA Julian Primary Care Unavailable TIFFANY DEWITT Referring Unavailable ALEXANDRE, DONNA L Primary Care Unavailable TIFFANY DEWITT Referring Unavailable ALEXANDRE, DONNA L Primary Care Unavailable TIFFANY DEWITT Referring Unavailable ALEXANDRE, DONNA L Primary Care Unavailable ALEXANDRE, DONNA L Primary Care Unavailable MARIA FERNANDA CHRISTIANSEN Attending UnavailBELKIS Medellin Attending Unavailable BELKIS MORRIS Referring Unavailable ALEXANDRE, DONNA Jordan Primary Care Unavailable BELKIS MORRIS Attending Unavailable ANDREAS, BELKIS Referring Unavailable ALEXANDRE, DONNA L Primary Care Unavailable Allergies Allergy Classification Reported Allergen(s) Allergy Type Date of Onset Reaction(s) Facility (6 sources) Codeine; Translations: [CODEINE] Drug Allergy 03-24-2023 [facility] (1 source) Amoxicillin; Translations: [amoxicillin] Drug Allergy [facility] Repository Medications Current Medications Medication Drug Class(es) Dates Sig (Normalized) Sig (Original) 0.25 MG, 0.5 MG Dose 3 ML semaglutide 0.68 MG/ML Pen Injector (1 source) Start: 08-16-2022 inject 0.5 mg by subcutaneous injection every week semaglutide 2 mg/3 mL (0.25 mg or 0.5 mg dose) subcutaneous solution 0.5 mg, SubCutaneous, qWeek, # 3 mL, Refills(s) 0, Pharmacy: [facility]/pharmacy #[id number] Start Date: 08/16/22 Status: Ordered Albuterol (1 source) beta2-Adrenergic Agonist Start: 06-20-2022 take 2 puff(s) by inhalation every four hours Albuterol (Eqv-ProAir HFA) 2 puff(s), Inhalation, q4hr, Refill(s) 0 Start Date: 06/20/22 Status: Ordered calcium carbonate 1500 mg / cholecalciferol 0.01 mg oral tablet (3 sources) Vitamin D Start: 03-30-2022 calcium carbonate-vitamin D3 (CALTRATE) 600 mg(1,500mg) -400 units per tablet 03/30/2022 Active hydroCHLOROthiazide 12.5 mg / losartan potassium 50 mg oral tablet (4 sources) Thiazide Diuretic, Angiotensin 2 Receptor Marie Start: 06-20-2022 take 1 tablet by mouth once daily hydrochlorothiazi de-losartan 12.5 mg-50 mg Tab 1 tab(s), Oral, Daily, Refill(s) 0 Start Date: 06/20/22 Status: Ordered take 1 tablet by arron th once in the morning losartan-hydroCHLOROthiazide (HYZAAR) 50 -12.5 mg per tablet Take 1 tablet by mouth in the morning. Active levothyroxine sodium 0.1 mg oral tablet (4 sources) l-Thyroxine Start: 06-20-2022 take 1 tablet by mouth once daily levothyroxine 100 mcg (0.1 mg) Tab 100 mcg = 1 tab(s), Oral, Daily, Refills(s) 0 Start Date: 06/20/22 Status: Ordered take 1 tablet by mouth in the mo rning levothyroxine (SYNTHROID, LEVOTHROID) 100 MCG tablet Take 1 tablet (100 mcg total) by mouth in the morning. Active PARoxetine hydrochloride 10 mg oral tablet (4 sources) Serotonin Reuptake Inhibitor Start: 06-21-2022 take 1 tablet by mouth once daily at bedtime PARoxetine (PAXIL) 10 mg tablet Indications: Anxiety and depression TAKE 1 TABLET BY MOUTH EVERYDAY AT BEDTIME 30 tablet 06/26/2022 Active 1 mg dose 1.5 ml semaglutide 1.34 mg/ml pen injector (4 sources) Start: 09-06-2022 inject 1 mg by subcutaneous injection every week Ozempic 2 mg/1.5 mL (1 mg dose) subcutaneous solution 1 mg, SubCutaneous, qWeek, 4 EA, Refill(s) 1, [facility]/pharmacy #[id number], 172.3, cm, 09/06/22 17:10:00 EDT, Height/Length Dosing, 92.2, kg, 09/06/22 17:10:00 EDT, Weight Dosing Start Date: 09/06/22 Status: Ordered semaglutide (OZE MPIC) 1 mg/dose (2 mg/1.5 mL) pen injector Inject 1 mg under the skin every 7 days. Active Completed/Discontinued Medications Medication Drug Class(es) Dates Sig (Normalized) Sig (Original) 1 ml medroxyPROGESTERone acetate 150 mg/ml injection (8 sources) Progestin Start: End: medroxyPROGESTERone (DEPO-PROVERA) injection 150 mg Start: 12-20-2023 End: 12-20-2023 inject 150 mg by intramuscular injection once 150 mg, intramuscular, Once, On Essie 12/20/23 at 1600, For 1 dose, Look-alike/sound-alike medication - verify indication for use. Start: 04-18-2023 End: 04-18-2023 medroxyPROGESTERone (DEPO-WI OVERA) injection 150 mg Start: 04-18-2023 End: 04-18-2023 medroxyPROGESTERone (DEPO-WI OVERA) injection 150 mg Start: 09-06-2022 inject 150 mg by intramuscular injection every three months Depo-Provera 150mg/mL intramuscular suspension 150 mg, IntraMuscular, q3mo, Refills(s) 0 Start Date: 09/06/22 Status: Ordered medroxyPROGESTER one (DEPO-PROVERA) 150 mg/mL injection Inject 1 mL (150 mg total) into the appropriate muscle every 3 (three) months. 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 Diabetes mellitus without complication (2 sources) Type 2 diabetes mellitus 06-23-2022 Chronic Essential hypertension (1 source) Hypertensive disorder 06-23-2022 Chronic Headache; including migraine (1 source) Migraine 06-23-2022 Chronic Immunizations and screening for infectious disease (3 sources) Patient encounter status; Translations: [Encounter for screening for infections with a predominantly sexual mode of transmission] Onset: 12-20-2023 12-20-2023 Episodic Mood disorders (1 source) Reactive depression (situational) 06-23-2022 Chronic Nonmalignant breast conditions (4 sources) Mastodynia; Translations: [Mastodynia] Onset: 12-20-2023 12-20-2023 Episodic Other nervous system disorders (1 source) [...] Unclassified (1 source) Patient encounter status 09-06-2022 Unclassified (1 source) Annual Exam Onset: 12-20-2023 Past or Other Problems Problem Classification Problem Date Documented Date Episodic/Chronic Abdominal pain (1 source) Epigastric pain; Translations: [Epigastric pain] Onset: 03-24-2023 Episodic Contraceptive and procreative management (4 sources) Contraception ; Translations: [Encounter for surveillance of injectable contraceptive] Onset: 07-11-2023 04-18-2023 Episodic Mood disorders (3 sources) Mood disorders Onset: 11-13-2022 Resolved: 12-20-2023 11-13-2022 Nonspecific chest pain (3 sources) Chest pain, unspecified; Translations: [Chest pain] Onset: 03-24-2023 Episodic Unclassified (1 source) CONTACT W/AND (SUSP) EXPOS COVID-19; Translations: [CONTACT W/AND (SUSP) EXPOS COVID-19] Onset: 10-12-2020 Unclassified (3 sources) Onset: 11-13-2022 Resolved: 12-20-2023 11-13-2022 Results Test Name Value Interpretation Reference Range Facility MAMM DIAGNOSTIC BILATERAL W CADon 01-01-2024 MAMM DIAGNOSTIC BILATERAL W CAD MAMM DIAGNOSTIC BILATERAL W CAD ARY WRIGHT 1985 [id number] EXAM: MAMM DIAGNOSTIC BILATERAL W CAD, 01/01/2024 1:05 PM CLINICAL INDICATIONS: Breast pain, left, COMPARISON: None TECHNIQUE: Bilateral digital tomosynthesis MLO and CC views of the breasts were obtained, with creation of synthetic 2D views. Computer aided detection was utilized. FINDINGS: There are scattered areas of fibroglandular density. Patient reports pain at superior aspect the left breast and also inferiorly. There is no underlying mammographic abnormality. Targeted ultrasound will be performed at this location. There are no suspicious masses, calcifications, or areas of architectural distortion. __ Left Breast Ultrasound, Limited TECHNIQUE: Multiple real-time manzanares-scale images of the left breast were performed. Color Doppler was utilized to assess vascular flow. FINDINGS: There is no focal mass, architectural distortion or abnormal vascularity visualized. __ COMBINED IMPRESSION: No mammographic evidence of malignancy. BI-RADS: BI-RADS 1 - Negative RECOMMENDATION: Routine screening mammogram in 1 year. RISK ASSESSMENT: TC Lifetime risk: 18.35%. The patient's reported personal and family medical history was used calculate their Tyrer-Cuzick lifetime risk of malignancy. Scores less than 20% are not considered high risk per ACR guidelines and patient should continue with the above recommendation. Patient was given the results before leaving the department. Finalized by Zeke Ness DO on 01/01/2024 2:35 PM 1 b MAMM 1 YR Normal [facility] US BREAST LT LIMITEDon 12-31 US BREAST LT LIMITED US BREAST LT LIMITED ARY WRIGHT 1985 [id number] EXAM: US BREAST LT LIMITED, 01/01/2024 2:05 PM EXAM: MAMM DIAGNOSTIC BILATERAL W CAD, 01/01/2024 1:05 PM CLINICAL INDICATIONS: Breast pain, left, COMPARISON: None TECHNIQUE: Bilateral digital tomosynthesis MLO and CC views of the breasts were obtained, with creation of synthetic 2D views. Computer aided detection was utilized. FINDINGS: Patient reports pain at superior aspect the left breast and also inferiorly. There is no underlying mammographic abnormality. Targeted ultrasound will be performed at this location. There are no suspicious masses, calcifications, or areas of architectural distortion. __ Left Breast Ultrasound, Limited TECHNIQUE: Multiple real-time manzanares-scale images of the left breast were performed. Color Doppler was utilized to assess vascular flow. FINDINGS: There is no focal mass, architectural distortion or abnormal vascularity visualized. __ COMBINED IMPRESSION: No mammographic evidence of malignancy. BI-RADS: BI-RADS 1 - Negative RECOMMENDATION: Routine screening mammogram in 1 year. RISK ASSESSMENT: TC Lifetime risk: 18.35%. The patient's reported personal and family medical history was used calculate their Tyrer-Cuzick lifetime risk of malignancy. Scores less than 20% are not considered high risk per ACR guidelines and patient should continue with the above recommendation. Patient was given the results before leaving the department. Finalized by Zeke Ness DO on 01/01/2024 2:36 PM 1 MAMM 1 YR Normal [facility] CHLAMYDIA/GC BY PCRon 2023 CHLAMYDIA/GC BY PCR SPECIMEN SOURCE CERVIX CHLAMYDIA DNA(PCR) Negative (qualifier value) Chlamydia trachomatis not detected by nucleic acid amplification. This does not exclude the possibility of infection because results are dependent on adequate specimen collection. GONORRHOEAE DNA(PCR) Negative (qualifier value) Neisseria gonorrhoeae not detected by nucleic acid amplification. This does not exclude the possibility of infection because results are dependent on adequate specimen collection. Normal [facility] Comment on above: Performed By: #### C GS #### [facility] ([id number]) [address] [place] [address], [address] [place] [address] TRICHOMONAS PCRon 12-20-2023 TRICHOMONAS PCR SPECIMEN SOURCE VAGINAL TRICHOMONAS PCR Not detected (qualifier value) Trichomonas vaginalis not detected NOTE Assay methodology is nucleic acid amplification by real-time PCR for detection of Trichomonas vaginalis DNA performed on [employer] System. Normal [facility] Comment on above: Performed By: #### T RKPCR #### [facility] ([id number]) [address] [place] [address], [address] [place] [address] Ambulatory Visit Summaryon 0 08-31-2023 Ambulatory Visit [...] choosing us for your care. Normal [facility] Office/Clini c Noteon 08-31-2023 [...] looked at, pt has never seen a sales assistant History of Present Illness pt presents today [...] causing pain now. will send referral to sales assistant. [place] [facility] [place] 2. Heel pain, bilateral (M79.671: Pain in right foot) both heels are painful especially when on her feet for a while. Ordered: [facility] [place] 3. Pain in left foot (M79.672: Pain in left foot) bunion is now painful on left foot. has had it for years but now it's bothering her Ordered: [facility] [place] 4. Diabetes mellitus type II, controlled (E11.9: Type 2 diabetes mellitus without complications) will increase ozempic Ordered: semaglutide, 1 mg, SubCutaneous, qWeek, 4 EA, Refill(s) 1, [id number], 172.3, cm, 09/06/22 17:10:00 EDT, Height/Length Dosing, 92.2, kg, 09/06/22 17:10:00 EDT, Weight Dosing [facility] [place] 5. BMI 36.0-36.9,adult (Z68.36: Body mass index [BMI] 36.0-36.9, adult) BMI education given Ordered: [facility] [place] 6. Non-smoker (Z78.9: Other specified health status) continue not smoking Ordered: semaglutide, 1 mg, SubCutaneous, qWeek, 4 EA, Refill(s) 1, [id number], 172.3, cm, 09/06/22 17:10:00 EDT, Height/Length Dosing, 92.2, kg, 09/06/22 17:10:00 EDT, Weight Dosing Orders: semaglutide, 1.7 mg, SubCutaneous, qWeek, # 12 EA, Refills(s) 1, Pharmacy: [facility]/pharmacy #[id number], 172.3, cm, 08/31/23 10:09:00 EDT, [...] Recorded Hib, unspecified formulation 09/30/1990 Recorded Normal [facility] Comment on above: Result Comment: Elec tronically Signed By: Donna Perla\.br\Date and Time Signed: 08/31/23 10:57 EDT Pre-Certification Formon Pre-Certification Form [id number] FF [facility] Pre-Certification Formon Pre-Certification Form [id number] IFF [facility] CBC AND AUTO DIFFon 03-24-19 ABSOLUTE BASOPHIL 0.1 X10E9/L Normal 0.0-0.2 [facility] Comment on above: Performed By: #### C BCA, CMP, 3040-3, 39395-1, 25103-3, 77809- 5, THYR #### [facility] ([id number]) [address] [place] [address] ABSOLUTE NEUTROPHIL 3.6 X10E9/L Normal 1.5-6.6 [facility] Comment on above: Performed By: #### C BCA, CMP, 3040-3, 14820-6, 51507-3, 59050- 5, THYR #### [facility] ([id number]) [address] [place] [address] 35834 Basophils/100 WBC (Bld) 0.9 % [facility] Comment on above: Performed By: #### C BCA, CMP, 3040-3, 52234-0, 24887-1, 80826- 5, THYR #### [facility] ([id number]) [address] [place] [address] 12035 Eosinophils (Bld) [#/Vol] 0.1 10*3/uL Normal 0.0-0.4 [facility] Comment on above: Performed By: #### C BCA, CMP, 3040-3, 70900-5, 99341-3, 81248- 5, THYR #### [facility] ([id number]) [address] [place] [address] 32337 Eosinophils/100 WBC (Bld) 2.5 % Normal [facility] Comment on above: Performed By: #### C BCA, CMP, 3040-3, 54732-5, 55524-5, 25637- 5, THYR #### [facility] ([id number]) [address] [place] [address] 62974 Erythrocyte distribution width (RBC) [Ratio] 12.7 % Normal 11.5-15.0 [facility] Comment on above: Performed By: #### C BCA, CMP, 3040-3, 81494-4, 27532-5, 12102- 5, THYR #### [facility] ([id number]) [address] [place] [address] 39369 Hematocrit (Bld) [Volume fraction] 43.1 % Normal 35-47 [facility] Comment on above: Performed By: #### C BCA, CMP, 3040-3, 49444-7, 73454-6, 94418- 5, THYR #### [facility] ([id number]) [address] [place] [address] 25619 Hemoglobin (Bld) [Mass/Vol] 14.7 g/dL Normal 11.7-15.5 [facility] Comment on above: Performed By: #### C BCA, CMP, 3040-3, 47020-1, 27421-9, 02916- 5, THYR #### [facility] ([id number]) [address] [place] [address] 01783 Lymphocytes (Bld) [#/Vol] 1.3 10*3/uL Normal 1.0-3.5 [facility] Comment on above: Performed By: #### C BCA, CMP, 3040-3, 38974-7, 52305-7, 41173- 5, THYR #### [facility] ([id number]) [address] [place] [address] 14164 Lymphocytes/100 WBC (Bld) 22.8 % Normal [facility] Comment on above: Performed By: #### C BCA, CMP, 3040-3, 13874-5, 69339-5, 32652- 5, THYR #### [facility] ([id number]) [address] [place] [address] 89991 MCH (RBC) [Entitic mass] 32.9 pg Normal 27-34 [facility] Comment on above: Performed By: #### C BCA, CMP, 3040-3, 65291-4, 29525-0, 00062- 5, THYR #### [facility] ([id number]) [address] [place] [address] 35407 MCHC (RBC) [Mass/Vol] 34.1 g/dL Normal 32-36 [facility] Comment on above: Performed By: #### C BCA, CMP, 3040-3, 73023-7, 27806-5, 20113- 5, THYR #### [facility] ([id number]) [address] [place] [address] 46241 MCV (RBC) [Entitic vol] 97 fL Normal 80-100 [facility] Comment on above: Performed By: #### C BCA, CMP, 3040-3, 59838-2, 30679-2, 02198- 5, THYR #### [facility] ([id number]) [address] [place] [address] 08591 Monocytes (Bld) [#/Vol] 0.6 10*3/uL Normal 0-0.9 [facility] Comment on above: Performed By: #### C BCA, CMP, 3040-3, 12720-4, 60424-3, 02393- 5, THYR #### [facility] ([id number]) [address] [place] [address] 79477 Monocytes/100 WBC (Bld) 10.4 % Normal [facility] Comment on above: Performed By: #### C BCA, CMP, 3040-3, 71857-4, 55242-1, 77946- 5, THYR #### [facility] ([id number]) [address] [place] [address] 04607 Neutrophils/100 WBC (Bld) 63.4 % Normal [facility] Comment on above: Performed By: #### C BCA, CMP, 3040-3, 59114-3, 17072-0, 90133- 5, THYR #### [facility] ([id number]) [address] [place] [address] 72750 Platelet mean volume (Bld) [Entitic vol] 8.1 fL Normal 7-12 [facility] Comment on above: Performed By: #### C BCA, CMP, 3040-3, 30754-4, 07810-0, 58230- 5, THYR #### [facility] ([id number]) [address] [place] [address] 67741 Platelets (Bld) [#/Vol] 269 10*3/uL Normal 150-450 [facility] Comment on above: Performed By: #### C BCA, CMP, 3040-3, 32491-3, 00642-1, 45215- 5, THYR #### [facility] ([id number]) [address] [place] [address] 05119 RBC COUNT 4.46 X10E12/L Normal 3.80-5.20 [facility] Comment on above: Performed By: #### C BCA, CMP, 3040-3, 18627-5, 29547-1, 43582- 5, THYR #### [facility] ([id number]) [address] [place] [address] 61809 WBC (Bld) [#/Vol] 5.7 10*3/uL Normal 4.0-11.0 [facility] Comment on above: Performed By: #### C BCA, CMP, 3040-3, 04112-7, 53781-0, 29711- 5, THYR #### [facility] ([id number]) [address] [place] [address] 83597 COMPREHENSIVE METABOLIC PANE Jd 03-24-2023 Albumin [Mass/Vol] 4.8 g/dL Normal 3.2-5.3 [facility] Comment on above: Performed By: #### C BCA, CMP, 3040-3, 03824-4, 10141-7, 26144- 5, THYR #### [facility] ([id number]) [address] [place] [address] 88352 ALP [Catalytic activity/Vol] 54 U/L Normal 39-130 [facility] Comment on above: Performed By: #### C BCA, CMP, 3040-3, 89047-6, 39637-0, 93958- 5, THYR #### [facility] ([id number]) [address] [place] [address] 31678 ALT [Catalytic activity/Vol] 24 U/L Normal 0-31 [facility] Comment on above: Performed By: #### C BCA, CMP, 3040-3, 76708-3, 29869-2, 14215- 5, THYR #### [facility] ([id number]) [address] [place] [address] 30009 Anion gap [Moles/Vol] 10 mmol/L Normal 5-15 [facility] Comment on above: Performed By: #### C BCA, CMP, 3040-3, 82567-3, 82979-9, 48756- 5, THYR #### [facility] ([id number]) [address] [place] [address] 79003 AST [Catalytic activity/Vol] 21 U/L Normal 0-41 [facility] Comment on above: Performed By: #### C BCA, CMP, 3040-3, 33821-1, 21208-2, 86792- 5, THYR #### [facility] ([id number]) [address] [place] [address] 37654 Bilirubin [Mass/Vol] 0.9 mg/dL Normal 0.3-1.2 [facility] Comment on above: Performed By: #### C BCA, CMP, 3040-3, 25531-3, 63934-7, 09014- 5, THYR #### [facility] ([id number]) [address] [place] [address] 30421 Calcium [Mass/Vol] 9.0 mg/dL Normal 8.5-10.5 [facility] Comment on above: Performed By: #### C BCA, CMP, 3040-3, 26378-2, 52265-7, 59217- 5, THYR #### [facility] ([id number]) [address] [place] [address] 62152 Chloride [Moles/Vol] 106 mmol/L Normal 98-109 [facility] Comment on above: Performed By: #### C BCA, CMP, 3040-3, 24443-2, 48369-2, 83912- 5, THYR #### [facility] ([id number]) [address] [place] [address] 34547 CO2 [Moles/Vol] 23 mmol/L Normal 22-32 [facility] Comment on above: Performed By: #### C BCA, CMP, 3040-3, 20554-2, 90511-3, 65545- 5, THYR #### [facility] ([id number]) [address] [place] [address] 85189 Creatinine [Mass/Vol] 0.87 mg/dL Normal 0.40-1.00 [facility] Comment on above: Result Comment: METH OD TRACEABLE TO IDMS STANDARD Performed By: #### C LIMA, CMP, 3040-3, 04396-4, 68503-9, 72717-1, THYR #### [facility] ([id number]) [address] [place] [address] 05914 GFR/1.73 sq M.predicted among non-blacks MDRD (S/P/Bld) [Vol rate/Area] 89 mL/min/{1.73_m2} Normal >59 [facility] Comment on above: Result Comment: Reported eGFR is based on the CKD-EPI 2020 equation that does not use a race coefficient. Performed By: #### C BCA, CMP, 3040-3, 42019-9, 25850-6, 59113-2, THYR #### [facility] ([id number]) [address] [place] [address] 98186 Glucose [Mass/Vol] 105 mg/dL High 65-99 [facility] Comment on above: Performed By: #### C BCA, CMP, 3040-3, 11354-2, 99395-7, 46603- 5, THYR #### [facility] ([id number]) [address] [place] [address] 11835 Potassium [Moles/Vol] 3.8 mmol/L Normal 3.5-5.0 [facility] Comment on above: Performed By: #### C BCA, CMP, 3040-3, 29383-7, 57465-8, 75215- 5, THYR #### [facility] ([id number]) [address] [place] [address] 83015 Protein [Mass/Vol] 7.7 g/dL Normal 6.0-8.0 [facility] Comment on above: Performed By: #### C BCA, CMP, 3040-3, 69101-7, 04451-0, 14621- 5, THYR #### [facility] ([id number]) [address] [place] [address] 61527 Sodium [Moles/Vol] 139 mmol/L Normal 134-146 [facility] Comment on above: Performed By: #### C BCA, CMP, 3040-3, 07022-7, 14098-9, 87524- 5, THYR #### [facility] ([id number]) [address] [place] [address] 65663 Urea nitrogen [Mass/Vol] 12 mg/dL Normal 5-23 [facility] Comment on above: Performed By: #### C BCA, CMP, 3040-3, 61530-1, 90306-2, 95182- 5, THYR #### [facility] ([id number]) [address] [place] [address] ABDOMEN AND PELVIS W CONT on [...] Mitchell MD on 03/24/2023 11:09 AM Normal [facility] Fibrin D-dimer DDU (PPP) [Ma ss/Vol]on 03-24-2023 D DIMER <150 Normal <255 [facility] Comment on above: Result Comment: Results <255 ng/mL DDU: The presence of a VTE can safely be excluded with a negative D-Dimer result and Wells score. A negative result doesn't exclude the possibility of DIC. The test be repeated along with other diagnostic tests if the patient's symptoms persist or worsen. [email or web address] Performed By: #### C BCA, CMP, 3040-3, 91222-3, 76687-8, 25864-0, THYR #### [facility] ([id number]) [address] [place] [address] HCG ( test) Ql (U)o n 03-24-2023 Beta HCG ( test) Ql (U) Negative Normal NEG [facility] Comment on above: Performed By: #### C BCA, CMP, 3040-3, 71852-8, 86230-6, 96138- 5, THYR #### [facility] ([id number]) [address] [place] [address] LIPASEon 03-24-2023 Lipase [Catalytic activity/Vol] 44 U/L High 17-40 [facility] Comment on above: Performed By: #### C BCA, CMP, 3040-3, 91673-7, 97742-5, 55249- 5, THYR #### [facility] ([id number]) [address] [place] [address] MAGNESIUMon 03-24-2023 Magnesium [Mass/Vol] 2.1 mg/dL Normal 1.8-2.6 [facility] Comment on above: Performed By: #### C BCA, CMP, 3040-3, 34072-0, 19297-0, 26038- 5, THYR #### [facility] ([id number]) [address] [place] [address] THYROID PROFILEon 03-24-2023 Free T4 [Mass/Vol] 0.88 ng/dL Normal 0.61-1.60 [facility] Comment on above: Performed By: #### C BCA, CMP, 3040-3, 54222-2, 36580-8, 48717- 5, THYR #### [facility] ([id number]) [address] [place] [address]33 TSH 1.29 uIU/mL Normal 0.49-4.67 [facility] Comment on above: Performed By: #### C BCA, CMP, 3040-3, 71144-4, 66932-0, 04886- 5, THYR #### [facility] ([id number]) [address] [place] [address] TROPONIN Ion 03-24-2023 Troponin I.cardiac [Mass/Vol] ng/mL Normal 0.00-0.04 [facility] Comment on above: Performed By: #### C BCA, CMP, 3040-3, 81759-3, 42229-8, 22456- 5, THYR #### [facility] ([id number]) [address] [place] [address] URN MACROSCOPIC NURon 2023 BILIRUBIN ANNE Negative Normal NEG [facility] Comment on above: Performed By: #### N UM #### [facility] ([id number]) [address] [place] [address] [place] [address] BLOOD/HGB ANNE Negative Normal NEG [facility] Comment on above: Performed By: #### N UM #### [facility] ([id number]) [address] [place] [address] [place] [address] GLUCOSE ANNE Negative Normal NEG [facility] Comment on above: Performed By: #### N UM #### [facility] ([id number]) [address] [place] [address] [place] [address] KETONES ANNE Negative Normal NEG [facility] Comment on above: Performed By: #### N UM #### [facility] ([id number]) [address] [place] [address] [place] [address] LEUKOCYTE ESTERASE ANNE Negative Normal NEG [facility] Comment on above: Performed By: #### N UM #### [facility] ([id number]) [address] [place] [address] [place] [address] NITRITE ANNE Negative Normal NEG [facility] Comment on above: Performed By: #### N UM #### [facility] ([id number]) [address] [place] [address] [place] [address] PH ANNE 5.5 Normal 5.0-8.5 [facility] Comment on above: Performed By: #### N UM #### [facility] ([id number]) [address] [place] [address] [place] [address] PROTEIN ANNE Negative Normal NEG [facility] Comment on above: Performed By: #### N UM #### [facility] ([id number]) [address] [place] [address] [place] [address] SPECIFIC GRAVITY ANNE 1.010 Normal 1.003-1.035 [facility] Comment on above: Performed By: #### N UM #### [facility] ([id number]) [address] [place] [address] [place] [address] UROBILINOGEN ANNE 0.2 eu/dL Normal <1.1 [facility] Comment on above: Performed By: #### N UM #### [facility] ([id number]) [address] [place] [address], [place] [address] XR CHEST 1 VWon 03-24-2023 XR CHEST [...] Pinto MD on 03/24/2023 10:39 AM Normal [facility] Reminderson 09-08-2022 Reminders - From: Donna Perla To: [facility] - Clinical; Sent: 09/08/2022 07:38:15 EDT Show up: 09/08/2022 07:38:00 EDT Subject: Ambulatory Reminder Due Date/Time: 09/09/2022 07:37:00 EDT Let pt know her labs were all normal. [id number] is 5.3 Results: Date Result Name Ind [...] 30.1 % (14.0 - 50.0) 09/06/2022 17:35 [place] Auto 6.5 % (4.0 - 14.0) 09/06/2022 17:35 Eos Auto 0.9 % (0.0 - 8.0) 09/06/2022 17:35 Basophil Auto 0.8 % (0.0 - 2.0) 09/06/2022 17:35 Neutro Absolute 3.6 E9/L (2.0 - 7.5) 09/06/2022 17:35 Lymph Absolute 1.8 E9/L (1.0 - 4.0) 09/06/2022 17:35 [place] Absolute 0.4 E9/L (0.2 - 1.0) 09/06/2022 [...] 5.60) notified patient of message below Normal [facility] Auto Diffon 09-07-2022 Basophils/100 WBC (Bld) 0.8 % Normal 0.0-2.0 [facility] Comment on above: Order Comment: Order Added by Discern Expert. Performed By: #### 2 275875, 4778919, 8110841, 3784173, 701300912, 5701073, 56477834 #### [facility] Laboratory [address] [place] [address] Basophils/Leukocyt es Auto (Bld) [Pure # fraction] 0.0 E9/L Normal 0.0-0.2 [facility] Comment on above: Order Comment: Order Added by Discern Expert. Performed By: #### 2 002478, 7071136, 7610719, 3487467, 740244722, 7408445, 89717667 #### [facility] [address] [place] [address] Eosinophils/100 WBC (Bld) 0.9 % Normal 0.0-8.0 [facility] Comment on above: Order Comment: Order Added by Discern Expert. Performed By: #### 2 355556, 5864476, 3291226, 6436348, 329801610, 1125038, 74033188 #### [facility] Laboratory [address] [place] [address] Eosinophils/Leukoc ytes Auto (Bld) [Pure # fraction] 0.1 E9/L Normal 0.0-0.5 [facility] Comment on above: Order Comment: Order Added by Discern Expert. Performed By: #### 2 829053, 9935451, 6012695, 0301589, 031460346, 5541585, 59089615 #### [facility] [address] [place] [address] Lymphocytes/100 WBC (Bld) 30.1 % Normal 14.0-50.0 [facility] Comment on above: Order Comment: Order Added by Discern Expert. Performed By: #### 2 528450, 4471509, 2473845, 8808007, 759885310, 0973499, 36456903 #### [facility] [address] [place] [address] Lymphocytes/Leukoc ytes Auto (Bld) [Pure # fraction] 1.8 E9/L Normal 1.0-4.0 [facility] Comment on above: Order Comment: Order Added by Discern Expert. Performed By: #### 2 415247, 1012575, 7229275, 8790845, 325656992, 7693226, 41173374 #### [facility] [address] [place] [address] Monocytes/100 WBC (Bld) 6.5 % Normal 4.0-14.0 [facility] Comment on above: Order Comment: Order Added by Discern Expert. Performed By: #### 2 535813, 9182514, 5646694, 8203619, 958447598, 7539808, 87353022 #### [facility] Laboratory [address] [place] [address] Monocytes/Leukocyt es Auto (Bld) [Pure # fraction] 0.4 E9/L Normal 0.2-1.0 [facility] Comment on above: Order Comment: Order Added by Discern Expert. Performed By: #### 2 034382, 3565400, 5864313, 6106664, 656201011, 2115106, 00404409 #### [facility] [address] [place] [address] Neutrophils/100 WBC (Bld) 61.7 % Normal 36.0-75.0 [facility] Comment on above: Order Comment: Order Added by Discern Expert. Performed By: #### 2 912623, 9095898, 6444841, 6392736, 079888902, 7767861, 91763507 #### [facility] [address] [place] [address] Neutrophils/Leukoc ytes Auto (Bld) [Pure # fraction] 3.6 E9/L Normal 2.0-7.5 [facility] Comment on above: Order Comment: Order Added by Discern Expert. Performed By: #### 2 724299, 3957808, 9581306, 0077034, 153109048, 4178255, 30601260 #### [facility] Laboratory [address] [place] [address] CBC w/ Auto Diffon 3 Erythrocyte distribution width (RBC) [Ratio] 14.4 % High 10.9-14.2 [facility] Comment on above: Performed By: #### 2 349323, 7742740, 0083512, 2011545, 277395242, 4104566, 33012643 #### [facility] [address] [place] [address] Hematocrit (Bld) [Volume fraction] 43.4 % Normal 34.0-46.0 [facility] Comment on above: Performed By: #### 2 273007, 5219227, 1605947, 8178323, 631021594, 4204511, 22560715 #### [facility] [address] [place] [address] Hemoglobin (Bld) [Mass/Vol] 14.0 g/dL Normal 12.0-16.0 [facility] Comment on above: Performed By: #### 2 837217, 1661216, 3996259, 5726141, 454877490, 3154912, 35776862 #### [facility] [address] [place] [address] 18728 MCH (RBC) [Entitic mass] 33.3 pg Normal 27.0-34.0 [facility] Comment on above: Performed By: #### 2 078925, 0994971, 9950260, 1656175, 851335440, 6029598, 86099500 #### [facility] [address] [place] [address] MCHC (RBC) [Mass/Vol] 32.4 g/dL Normal 31.4-36.0 [facility] Comment on above: Performed By: #### 2 467686, 9844575, 5867974, 6674329, 997871292, 2027695, 53926527 #### [facility] [address] [place] [address] MCV (RBC) [Entitic vol] 102.8 fL High 80.0-100.0 [facility] Comment on above: Performed By: #### 2 578104, 1677458, 4125204, 5614279, 596295455, 2618621, 99804247 #### [facility] [address] [place] [address] Platelet mean volume (Bld) [Entitic vol] 9.3 fL Normal 6.4-10.8 [facility] Comment on above: Performed By: #### 2 965966, 4151091, 7881066, 7855099, 076262147, 7197830, 92218497 #### [facility] [address] [place] [address] Platelets (Bld) [#/Vol] 264.0 E9/L Normal 150.0-500.0 [facility] Comment on above: Performed By: #### 2 523124, 9860786, 3472513, 8679450, 850147737, 6132362, 42555247 #### [facility] [address] [place] [address] RBC (Bld) [#/Vol] 4.2 E12/L Low 4.3-5.9 [facility] Comment on above: Performed By: #### 2 498617, 6545611, 5559198, 4746621, 799055514, 0487039, 00913312 #### [facility] [address] [place] [address] 529[address] WBC corrected for nucl RBC Auto (Bld) [#/Vol] 5.9 E9/L Normal 4.0-11.0 [facility] Comment on above: Performed By: #### 2 081560, 8380594, 8448070, 3227662, 657272333, 1137330, 24658249 #### [facility] [address] [place] [address] CMPon 09-07-2022 Albumin [Mass/Vol] 4.3 g/dL Normal 3.3-5.0 [facility] Comment on above: Performed By: #### 2 491462, 4660067, 4281012, 4471226, 912646816, 9213184, 19375561 #### [facility] [address] [place] [address] 22422 Albumin/Globulin (S) [Mass conc ratio] 1.6 Normal 1.1-2.2 [facility] Comment on above: Performed By: #### 2 355403, 6932663, 8857887, 8029947, 922292439, 9532069, 20313611 #### [facility] [address] [place] [address] ALP [Catalytic activity/Vol] 41 Int._Unit/L Normal 21-98 [facility] Comment on above: Performed By: #### 2 263238, 2147909, 4748425, 8952323, 899685536, 2590848, 67456046 #### [facility] [address] [place] [address] ALT No additional P-5'-P [Catalytic activity/Vol] 27 Int._Unit/L Normal 6-46 [facility] Comment on above: Performed By: #### 2 092965, 0371385, 4689985, 6529526, 343812547, 2089536, 14253847 #### [facility] [address] [place] [address] Anion gap [Moles/Vol] 11 mmol/L Normal 6-16 [facility] Comment on above: Performed By: #### 2 905415, 1002691, 6387870, 7645566, 225331126, 4122048, 72279526 #### [facility] [address] [place] [address] AST [Catalytic activity/Vol] 25 Int._Unit/L Normal 5-43 [facility] Comment on above: Performed By: #### 2 312569, 1848850, 0066359, 0650525, 193353504, 6793912, 93148825 #### [facility] [address] [place] [address] Bilirubin [Mass/Vol] 0.8 mg/dL Normal 0.0-1.1 [facility] Comment on above: Performed By: #### 2 756681, 9904693, 5450205, 2710517, 455800888, 2863406, 36242551 #### [facility] [address] [place] [address] Calcium [Mass/Vol] 9.1 mg/dL Normal 8.9-11.1 [facility] Comment on above: Performed By: #### 2 490805, 6792909, 4952877, 0168635, 534881439, 7533326, 91580674 #### [facility] [address] [place] [address] Chloride [Moles/Vol] 109 mmol/L Normal 101-111 [facility] Comment on above: Performed By: #### 2 594257, 6485804, 5007206, 6620223, 557915003, 5897442, 47790687 #### [facility] [address] [place] [address] CO2 [Moles/Vol] 23 mmol/L Normal 21-31 [facility] Comment on above: Performed By: #### 2 462386, 2480715, 5033038, 4957762, 565556715, 0249259, 09003167 #### [facility] [address] [place] [address] Creatinine [Mass/Vol] 0.8 mg/dL Normal 0.5-1.3 [facility] Comment on above: Performed By: #### 2 315121, 4465335, 6953726, 1132430, 053801304, 7607365, 52140339 #### [facility] [address] [place] [address] Globulin (S) [Mass/Vol] 2.7 g/dL Normal 1.4-4.0 [facility] Comment on above: Performed By: #### 2 912558, 8831259, 0852387, 9523595, 313510223, 5304239, 21098294 #### [facility] [address] [place] [address] Glucose [Mass/Vol] 106 mg/dL Normal 55-199 [facility] Comment on above: Result Comment: If t his glucose result represents a fasting glucose, interpretation should refer to the following reference range: 55-99 mg/dL Performed By: #### 2 282234, 1671076, 5954804, 0596236, 385323422, 3879070, 79353051 #### [facility] [address] [place] [address] Potassium [Moles/Vol] 3.6 mmol/L Normal 3.5-5.3 [facility] Comment on above: Performed By: #### 2 856967, 5075820, 8143797, 0074831, 418438782, 3680651, 37524202 #### [facility] [address] [place] [address] Protein [Mass/Vol] 7.0 g/dL Normal 6.0-7.8 [facility] Comment on above: Performed By: #### 2 599981, 4025662, 6026784, 1891417, 208474368, 6237325, 74416635 #### [facility] [address] [place] [address] Sodium [Moles/Vol] 139 mmol/L Normal 135-145 [facility] Comment on above: Performed By: #### 2 821187, 9921160, 2138758, 6858849, 874842685, 6196467, 31064711 #### [facility] [address] [place] [address] Urea nitrogen [Mass/Vol] 10 mg/dL Normal 5-21 [facility] Comment on above: Performed By: #### 2 538065, 2238954, 3801682, 0453000, 108698958, 9485062, 78712618 #### [facility] [address] [place] [address] Urea nitrogen/Creatinin e [Mass ratio] 12 No Units Normal 10-20 [facility] Comment on above: Performed By: #### 2 377362, 8871629, 4813297, 4349775, 158962654, 9512671, 38671680 #### [facility] [address] [place] [address] [id number] 09-07-2022 HbA1c (Bld) [Mass fraction] 5.3 % Normal <=5.9 [facility] Comment on above: Performed By: #### 2 809822, 8816166, 0429654, 7765207, 308918869, 7031473, 84465233 #### [facility] [address] [place] [address] Lipid Panelon 09-07-2022 Cholesterol [Mass/Vol] 133 mg/dL Normal 120-200 [facility] Comment on above: Performed By: #### 2 716862, 0714805, 6418775, 4237230, 609795963, 1692983, 83145685 #### [facility] [address] [place] [address] Cholesterol in HDL [Mass/Vol] 60 mg/dL Invalid Interpretation Code [facility] Comment on above: Result Comment: HDL > or equal to 60 mg/dL: Low cardiovascular risk HDL < 40 mg/dL : High cardiovascular risk Performed By: #### 2 662053, 1389863, 3088382, 7134018, 105802151, 4414649, 28511884 #### [facility] [address] [place] [address] Cholesterol in LDL [Mass/Vol] 59 mg/dL Normal <=129 [facility] Comment on above: Performed By: #### 2 491043, 2374865, 1477703, 3327876, 925895934, 1632581, 90838086 #### [facility] [address] [place] [address] Cholesterol in VLDL [Mass/Vol] 8 mg/dL Normal 7-40 [facility] Comment on above: Performed By: #### 2 016347, 4983925, 5347806, 5434309, 237371116, 6767477, 97629649 #### [facility] [address] [place] [address] Triglyceride [Mass/Vol] 41 mg/dL Normal <=149 [facility] Comment on above: Performed By: #### 2 383490, 8352060, 4092782, 4326096, 999591696, 9126363, 05206028 #### [facility] [address] [place] [address] TSHon 09-07-2022 TSH Qn 0.74 m[IU]/L Normal 0.34-5.60 [facility] Comment on above: Performed By: #### 2 327013, 6651972, 8512347, 4697053, 822839647, 7633952, 08348601 #### [facility] [address] [place] [address] eGFRon 09-07-2022 GFR/1.73 sq M.predicted among non-blacks MDRD (S/P/Bld) [Vol rate/Area] 99 mL/min/1.73 m2 Normal >=59 [facility] Comment on above: Order Comment: Order added by Discern Expert. Result Comment: Technical Proposal Writer siobhan kidney disease could be indicated at eGFR's of less than 60 mL/min/1.73m2. Kidney failure is indicated at less than 15 mL/min/1.73m2. Performed By: #### 2 313785, 9256002, 8443163, 4872513, 085265753, 9980495, 58716882 #### [facility] [address] [place] [address] Family Medicine Office/Clini c Noteon 09-06-2022 Family Medicine Office/Clinic Note HPI Staff Ary is a 36 year old female presenting to establish care Establish Care: History: Any previous diagnosis: HTN, Hypothyroidism, Migraines, metabolic syndrome, type 2 diabetes with hyperglycemia History of seeing any specialist: [facility] When was your last [...] mRNA-1273 vaccine (more content not included)... Normal [facility] Comment on above: Result Comment: Elec tronically Signed By: Donna Perla\.br\Date and Time Signed: 09/06/22 17:32 EDT Covid-19 PCR ([facility])on 09-26 SARS-CoV-2 (COVID-19) RNA MIKE+probe Ql (Unsp spec) Not detected Normal NOT DETECTED [facility] Comment on above: Result Comment: This test is not yet approved or cleared by the [place] FDA. When there are no FDA-approved or cleared tests available, and other criteria are met, FDA can make tests available under an emergency access mechanism called an Emergency Use Authorization (EUA). The EUA for this test is supported by the [place] of Health and Human Service's (HHS's) declaration [...] Performed By: #### C VDTBH, CVDAGS #### [facility] Laboratory [address] [place] [address] Marilee Sheridan SYMPTOMATIC COVID-19 ANTIGEN on 10-12-2020 EUA Statement SEE BELOW Normal [facility] Comment on above: Result Comment: [...] revoked sooner. Performed By: #### C VDTB, CVDAGS #### [facility] Laboratory [address] [place] [address] Marilee Sheridan SARS-CoV-2 (COVID-19) RNA MIKE+probe Ql (Unsp spec) Negative Normal NEGATIVE [facility] Comment on above: Result Comment: CONF IRMATION BY PCR PENDING PER CDC GUIDELINES/ SYMPTOMATIC PATIENT. Performed By: #### C VDTB, CVDAGS #### [facility] [address], [place] [address] Marilee Sheridan Vital Signs Date Time Vital Sign Value Performing Clinician Keila colunga 12-20-2023 15:29040 Body height 176.5 cm [facility] 12-20-2023 15:040 Body mass index (BMI) [Ratio] 36.71 kg/m2 [facility] 12-20-2023 15:040 Body weight 114.4 kg [facility] 12-20-2023 15:040 Diastolic blood pressure 74 mm[Hg] [facility] 12-20-2023 15:29040 Systolic blood pressure 122 mm[Hg] [facility] Encounters Encounter Date Encounter Type Care Provider Facility Start: 01-01-2024 End: 01-01-2024 [facility] TIFFANY Farnsworth [facility] Start: 12-21-2023 End: 12-21-2023 Telephone encounter Ana Maria Do [facility]ne[facility] Start: 12-20-2023 End: 12-20-2023 [facility] Start: 12-20-2023 End: 12-20-2023 Patient encounter procedure [facility] Work Phone: Start: 12-20-2023 End: 12-20-2023 Periodic preventive med est patient 18-39 yrs [facility] [employer] [facility] Comment on above: Well woman exam with routine gynecological exam (Primary Dx); Screening for STD (sexually transmitted disease); Encounter for surveillance of injectable contraceptive; Breast pain, left Start: 12-20-2023 End: 12-20-2023 ambulatory [facility] Start: 12-20-2023 Encounter for gynecological examination (general) (routine) without abnormal findings [facility] [place] [facility] Start: 10-04-2023 End: 10-04-[address] [facility] Start: 08-31-2023 End: 08-31-2023 ambulatory Donna L Alexandre Facility:[facility] Start: 07-11-2023 End: 07-11-2023 ambulatory [facility] Start: 04-18-2023 End: 04-18-2023 ambulatory [facility] [employer] [facility] Comment on above: Encounter for survei llance of injectable contraceptive (Primary Dx) Start: 03-24-2023 End: 03-25-2023 Emergency department patient visit [facility] Start: 09-06-2022 End: 09-06-2022 Lab Drop off [facility] [facility] Start: 09-06-2022 End: 09-06-2022 ambulatory Donna L Alexandre [place] Start: 10-12-2020 End: 10-13-[address] JOVAN PAT Facility:[facility]1 Procedures Date Procedure Procedure Detail Performing Clinician Start: 12-20-2023 Adult depression scr eening assessment [employer] [employer] Start: 11-13-2022 Adult depression scr eening assessment [facility] [employer] Start: 05-16-2021 Microscopic observat ion [Identifier] in Cervix by Cyto stain [employer] section Donna Felton Plan of Treatment Date Care Activity Detail Author Start: 12-19-2024 Adult BMI Follow Up Plan Adult BMI Follow Up Plan [facility] Start: 12-19-2024 Adult BMI Screening Adult BMI Screen ing [facility] Start: 12-19-2024 Depression Screening Depression Scre ening [facility] Start: 12-19-2024 Tobacco Screening Tobacco Screening [facility] Start: 05-16-2024 Screening for malign ant neoplasm of cervix Pap Smear [facility] Start: 03-24-2024 Adult BMI Screening Adult BMI Screen ing [facility] Start: 03-24-2024 Tobacco Screening Tobacco Screening [facility] Start: 03-07-2024 End: 03-07-2024 Patient encounter procedure 03/07/2024 8:00 AM EST Procedure visit [facility] Obst[facility]Gynecology [address] [facility] [id number] Edith Shaffer, COLLECTIONS REPRESENTATIVE-WINCH DERRICK OPERATOR [address] [place], [place] [id number] [facility]Gynecology Start: 01-01-2024 End: 01-01-2024 Patient encounter procedure [facility] - Mammography/DEXA Imaging Start: 12-21-2023 End: 12-20-2024 MG Breast Diagnostic Mammography diagnostic bilateral with CAD Imaging Routine Breast pain, left Expected: 12/21/2023, Expires: 12/20/2024 [facility] Work Phone: Comment on above: Expected: 12/21/2023 , Expires: 12/20/2024 Start: 12-20-2023 End: 12-19-2024 Chlamydia/GC by PCR Debbie Swab Chlamydia/GC by PCR Debbie Swab Microbiology Routine Screening for STD (sexually transmitted disease) Expected: 12/20/2023 (Approximate), Expires: [facility] Comment on above: Expected: 12/20/2023 (Approximate), Expires: 12/19/2024 Start: 12-20-2023 End: 12-19-2024 MG Breast duct - left Views W contrast intra duct Mammography diagnostic unilateral left with CAD Imaging Routine Breast pain, left Expected: 12/20/2023, Expires: 12/19/2024 [facility] Comment on above: Expected: 12/20/2023 , Expires: 12/19/2024 Start: 12-20-2023 End: 12-19-2024 Trichomonas by PCR Trichomonas by PCR Microbiology Routine Screening for STD (sexually transmitted disease) Expected: 12/20/2023 (Approximate), Expires: 12/19/2024 [facility] Comment on above: Expected: 12/20/2023 (Approximate), Expires: 12/19/2024 Start: 12-20-2023 End: 12-19-2024 US Breast - left limited Ultrasound breast limited left Imaging Routine Breast pain, left Expected: 12/20/2023, Expires: 12/19/2024 [facility] Comment on above: Expected: 12/20/2023 , Expires: 12/19/2024 Start: 11-14-2023 Adult BMI Follow Up Plan Adult BMI Follow Up Plan [facility] Start: 11-14-2023 Depression Screening Depression Scre [facility] Start: 07-11-2023 End: 07-11-2023 ambulatory 07/11/2023 8:15 AM EDT Nurse Injection [facility] Obstetrics/Gynecology [address] [place] [address] [facility] Start: 03-17-2023 DTaP,Tdap and Td Vaccines (7 - Td or Tdap) DTaP,Tdap and Td Vaccines (7 - Td or Tdap) [facility] Immunizations Immunization Date Immunization Notes Care Provider Fa cility 01-10-2021 SARS-CoV-2 (COVID-19 ) mRNA-1273 vaccine Donna Felton [facility] Comment on above: Result Comment: 2022: TPVAL 05-21-2020 SARS-CoV-2 (COVID-19 ) mRNA-1273 vaccine Donna Alexandre [facility] Comment on above: Result Comment: 2022: TPV23 04-21-2020 SARS-CoV-2 (COVID-19 ) mRNA-1273 vaccine Donna Alexandre [facility] Comment on above: Result Comment: 2022: TPV23 01-25-2019 influenza virus vaccine, unspecified formulation Donna Alexandre [facility] 03-17-2013 influenza virus vaccine, unspecified formulation Donna Alexandre [facility] 03-17-2013 measles, mumps and rubella virus vaccine Donna Alexandre [facility] 03-17-2013 tetanus toxoid, redu jose diphtheria toxoid, and acellular pertussis vaccine, adsorbed Donna Alexandre [facility] 06-19-2010 tetanus toxoid, redu jose diphtheria toxoid, and acellular pertussis vaccine, adsorbed Donna Alexandre [facility] 04-14-1999 measles, mumps and rubella virus vaccine Donna Alexandre [facility] 09-30-1990 Hib, unspecified formulation Donna Alexandre [facility] 09-30-1990 measles, mumps and rubella virus vaccine Donna Alexandre [facility] Payers Date Payer Category Payer Private Health Insurance [id number] 2010 Managed Care Other (unspecified) [facility] [id number] 2010 Private Health Insurance [facility] [id number] 2010-Present [phone] [address] [address] [place] [address] [id number] 2010 Private Health Insurance [id number] 2002 Medicaid AMES MEDICAID AMES MEDICAID [id number] 2002-Present [phone] [address] [place] [address] [id number] 1987 Unknown [id number]. 593 1987 Unknown [id number] [id number]. 727 1987 Unknown [id number] 2.16840.1.270532.3.579.2. 727 1987 Unknown [id number] 2.16840.1.466141.3.579.2. 727 1987 Unknown [id number] 2.16840.1.962623.3.579.2. 1286 1987 Unknown [id number] 2.16840.1.041102.3.579.2. 1286 1987 Unknown [id number] 2.16.840.1.947364.3.579.2. 6 1987 Unknown [id number] 2.16.840.1.163230.3.579.2. 6 1987 Unknown [id number] 2.16.840.1.426601.3.579.2. 1285 1987 Unknown [id number] 2.16.840.1.674668.3.579.2. 6 1987 Unknown [id number] 2.16.840.1.024503.3.579.2. 6 1987 Unknown [id number] 2.16.840.1.749493.3.579.2. 6 1987 Unknown [id number] 2.16.840.1.755250.3.579.2. 1285 1987 Unknown [id number] [id number]. 1286 1959 Unknown [id number] Social History Date Type Detail Facility Start: 03-28-2022 End: 09-06-2022 Tobacco smoking status Never smoked tobacco (finding) [facility] Tobacco smoking status Never [facility] Start: 03-24-2020 End: 11-13-2022 Sex Assigned At Female [facility] Start: 03-28-2022 Tobacco use and exposure Smokeless tobacco non-user [facility] Start: 03-24-2023 End: 12-20-2023 Alcohol intake Current drinker of alcohol (finding) [facility] Start: 03-24-2020 End: 11-13-2022 History of Social function [facility] Work Phone: How often to you hav e a drink containing alcohol? Monthly or less [facility] Work Phone: How many standard drinks containing alcohol do you have on a typical day? 1 or 2 [facility] How often do you hav e 6 or more drinks on 1 occasion? Never [facility] Start: 03-05-2017 Alcohol Comment occasional [facility] Start: 1985 Sex Assigned At Female [facility] Start: 02-21-2021 Gender identity Identifies as female gender (finding) [facility] Start: 02-21-2021 Sexual orientation Heterosexual (fin ding) [facility] How often to you hav e a drink containing alcohol? 2-4 times a month [facility] Start: 10-01-2014 Sex Female (finding) [facility] Clinical Notes 09-06-2022 to 12-21-2023 Telephone Encounter - Ana Maria Do - 12/21/2023 10:00 AM EDTTelephone Encounter - Marlen Byrd RN - 12/21/2023 10:00 AM SERGIO Ross CNM - 12/20/2023 3:30 PM EDT Note Date & Type Note Facility 12-21-2023 Miscellaneous Notes Received a call from Asmita in Central Scheduling. The patient's mammogram order needs to be bilateral diagnostic since the patient has never had a mammogram done before. Thank you. Order placed. RODOLFO Gutierrez, RN documented in this encounter [facility] 12-21-2023 Telephone encounter Note Received a call from Asmita in Central Scheduling. The patient's mammogram order needs to be bilateral diagnostic since the patient has never had a mammogram done before. Thank you. [facility] 12-21-2023 Telephone encounter Note Order placed. RODOLFO Gutierrez, RN [facility] 12-20-2023 History of Present illness Narrative Annual Well Woman Visit 12/20/2023 Clint Wright is a pleasant 38 y.o. 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 Periods are non existent due to Depo-Provera injections. Has some intermenstrual bleeding, spotting, or abnormal discharge. no pelvic pain. Patient desires STD testing today, vaginal cultures only. Pt. States she has been on depo provera almost 10yrs. Pt. Is only exercising w/upper body d/t having had a bunionectomy to her left foot in Sep. And she has not yet been released to resume exercising. Complaints today: left breast pain/burning the last 2 months no provocative or palliative factors. The pain is intermittent and she feels it every few days. It usually lasts all day. She has never had this before. She has not taken any tylenol or ibuprofen for this. Pt. States she has a high caffeine intake. Relationship status: and monogamous The patient reports that there is not domestic violence in her life. 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 Children YES How many One Current contraception: Depo-Provera injections History of abnormal Pap smear: no Last pap: 05/16/21- Neg, Neg HPV Regular self breast exam: yes Last mammogram: n/a Family history of breast cancer: yes - Maternal Aunt Family history of uterine or ovarian cancer: yes - Maternal Grandmother Family history of pancreatic or prostate cancer: no Family history of colon cancer: yes - Father HPV vaccinated: no PHQ9 depression screenin LMP N/A d/t depo OB History 1 Para 1 Term 1 AB Living 1 SAB IAB Ectopic Multiple Live Births 1 The following portions of the patient's history were reviewed and updated as appropriate: allergies, current medications, past family history, past medical history, past social history, past surgical history and problem list. MEDICAL HX Past Medical History: Diagnosis Date Diabetes mellitus ([facility]) Hypertension Hypothyroidism SURGICAL HX Past Surgical History: Procedure Laterality Date SECTION FOOT SURGERY Left 09/27/2023 FAMILY HX Family History Problem Relation Age of Onset Diabetes Mother Thyroid disease Mother Hypertension Mother High Cholesterol Mother COPD Mother Colon cancer Father Uterine cancer Maternal Grandmother Breast cancer Maternal Aunt Pancreatic cancer Neg Hx Prostate cancer Neg Hx MEDS Current Outpatient Medications Medication Sig Dispense Refill levothyroxine (SYNTHROID, LEVOTHROID) 100 MCG tablet Take 1 tablet (100 mcg total) by mouth in the morning. losartan-hydroCHLOROthiazide (HYZAAR) 50-12.5 mg per tablet Take 1 tablet by mouth in the morning. medroxyPROGESTERone (DEPO-PROVERA) 150 mg/mL injection Inject 1 mL (150 mg total) into the appropriate muscle every 3 (three) months. PARoxetine (PAXIL) 10 mg tablet TAKE 1 TABLET BY MOUTH EVERYDAY AT BEDTIME 30 tablet 0 calcium carbonate-vitamin D3 (CALTRATE) 600 mg(1,500mg) -400 units per tablet (Patient not taking: Reported on 12/20/2023) semaglutide (OZEMPIC) 1 mg/dose (2 mg/1.5 mL) pen injector Inject 1 mg under the skin every 7 days. (Patient not taking: Reported on 12/20/2023) No current facility-administered medications for this visit. ALLERGIES Allergies Allergen Reactions Codeine Review of Systems Review of Systems Constitutional: Negative for chills and fever. Reports intermittent left breast pain. HENT: Negative for ear pain, sinus pain and sore throat. Eyes: Negative for pain. Respiratory: Negative for cough and shortness of breath. Cardiovascular: Negative for chest pain and palpitations. Gastrointestinal: Negative for abdominal pain, constipation, diarrhea, nausea and vomiting. Genitourinary: Negative for difficulty urinating, dyspareunia, pelvic pain and vaginal discharge. Musculoskeletal: Positive for gait problem and joint swelling. D/t bunionectomy on left foot Skin: Negative for rash and wound. Psychiatric/Behavioral: Positive for dysphoric mood. The patient is nervous/anxious. Pt. Reports stable symptoms. She does not see a counselor or psychiatrist. Objective Ht 176.5 cm (5' 9.5 ) Wt 114.4 kg (252 lb 3.2 oz) BMI 36.71 kg/m Physical Exam Vitals and nursing note reviewed. Constitutional: General: She is not in acute distress. Appearance: She is obese. She is not ill-appearing, toxic-appearing or diaphoretic. HENT: Head: Atraumatic. Eyes: General: No scleral icterus. Neck: Thyroid: No thyroid mass, thyromegaly or thyroid tenderness. Cardiovascular: Rate and Rhythm: Normal rate and regular rhythm. Heart sounds: Normal heart sounds. Pulmonary: Effort: Pulmonary effort is normal. Breath sounds: Normal breath sounds. Chest: Chest wall: No mass, lacerations, deformity, swelling or tenderness. Breasts: Breasts are symmetrical. Right: Normal. Left: Tenderness present. No swelling, bleeding, inverted nipple, mass, nipple discharge or skin change. Comments: Tenderness noted at 6 o'clock beneath nipple extending directly downward approx. 3in. And tenderness noted to left upper out quadrant Abdominal: General: There is no distension. Palpations: Abdomen is soft. There is no mass. Tenderness: There is no abdominal tenderness. There is no guarding or rebound. Hernia: No hernia is present. Genitourinary: General: Normal vulva. Exam position: Lithotomy position. Pubic Area: No rash or pubic lice. Labia: Right: No rash, tenderness, lesion or injury. Left: No rash, tenderness, lesion or injury. Urethra: No prolapse, urethral pain, urethral swelling or urethral lesion. Vagina: Normal. Cervix: Normal. Uterus: Normal. Adnexa: Right adnexa normal and left adnexa normal. Rectum: No external hemorrhoid. Musculoskeletal: Cervical back: Neck supple. No rigidity or tenderness. Lymphadenopathy: Cervical: No cervical adenopathy. Upper Body: Right upper body: No axillary adenopathy. Left upper body: No axillary adenopathy. Skin: General: Skin is warm and dry. Neurological: General: No focal deficit present. Mental Status: She is alert. Psychiatric: Mood and Affect: Mood normal. Behavior: Behavior normal. Assessment/Plan: Radha was seen today for annual exam and contraception. Diagnoses and all orders for this visit: Well woman exam with routine gynecological exam Screening for STD (sexually transmitted disease) - Chlamydia/GC by PCR Debbie Swab; Future - Trichomonas by PCR; Future Encounter for surveillance of injectable contraceptive - medroxyPROGESTERone (DEPO-PROVERA) injection 150 mg Breast pain, left - Ultrasound breast limited left; Future - Mammography diagnostic unilateral left with CAD; Future BMI is above average; Discussed eating tips for weight loss and and exercise steps. Breast self exam technique reviewed and patient encouraged to perform self-exam monthly. Discussed healthy lifestyle modifications. Educational material distributed. Follow up as needed. Next pap due 2026 per ASCCP guidelines. Discussed recommendation for use of depo for 2yr. And then taking a break d/t the depletion of calcium from bones. Encouraged calcium rich diet and aerobic exercise to build bone once she is released from her bunion surgery. Brochure provided on control methods and pt. Encouraged to consider other method. Also discussed not sure if uterine lining is increasing in size d/t no menses in 10yr. But this can predispose to cancer if so. Discussed need for yearly mammogram after 40 yo. Discussed colon cancer screening recommendations to begin at 45 yoAll questions answered. 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 SUSHILA FARRIS APRN, YOAN Dewitt APRN-YOAN 12/20/231742 documented in this encounter [facility] 04-18-2023 History of Present illness Narrative Patient is here for DepoProvera IM administration. Medical history reviewed. Pt denies abnormal bleeding, concerns related to Depo. Urine test negative. Injection administered to __RUQ . Pt tolerated well, no adverse reactions noted. Patient to return to clinic for next Depo Administration in 10-12 weeks or PRN. Depo calendar given. documented in this encounter [facility] 09-06-2022 Evaluation + Plan note [facility]22Comprehensive Metabolic Panel 09/06/22Lipid Panel 09/06/22Thyroid Stimulating Hormone 09/06/2222ChqQ3g 09/06/22 [facility] Evaluation note Diagnosis Encounter for surveillance of injectable contraceptive- Primary documented [facility] this encounter [facility] Diagnosis Well woman exam with routine gynecological exam- Primary Routine gynecological examination Screening for STD (sexually transmitted disease) Encounter for surveillance of injectable contraceptive Breast pain, left [facility] Breast pain, left- Primary documented in this encounter [facility] Narrative No data available for this section [facility] No data available for this section [facility]ructionsNot on filedocumented in this encounter [facility] filedocumented in this encounter [facility]Not on filedocumented in this encounter [facility] No data available for this section [facility] Summary Purpose Family History No Family History Records FoundNo Family History Records FoundNo Family History Records FoundNo Family History Records FoundNo Family History Records Found Advance Directives No Advanced Directives Records FoundNo Advanced Directives Records FoundNo Advanced Directives Records FoundNo Advanced Directives Records FoundNo Advanced Directives Records Found Additional Source Comments INFORMATION SOURCE (unrecogn ized section and content) DATE CREATED AUTHOR 11/01/2020 [facility] DATE CREATED AUTHOR AUTHOR'S ORGANIZ ATION 09/01/2023 [facility] DATE CREATED AUTHOR AUTHOR'S ORGANIZ ATION 12/22/2023 [facility] DATE CREATED AUTHOR AUTHOR'S ORGANIZ ATION 12/22/2023 [facility] DATE CREATED AUTHOR AUTHOR'S ORGANIZ ATION 01/03/2024 [facility] Patient Care team informatio n (unrecognized section and content) [employer] Internship Relationship Specialty Start Date End Date Donna Felton APRN-CNP [address] [place] [address] PCP - General Nurse Practitioner 03/24/23 [employer] Intern[employer] Relationship Specialty Start Date End Date Donna Felton APRN-CNP [address] [place] [address] PCP - General Nurse Practitioner 03/24/23 [employer] Internship Relationship Specialty Start Date End Date Donna Felton APRN-CNP [address] [place] [address] PCP - General Nurse Practitioner 03/24/23 Reason for Visit (unrecogniz ed section and content) Reason Comments Contraception Pt is here for Depo Reason Comments Annual Exam Contraception Depo-Provera injecti on LUOQ FOR RECORDS PERTAINING TO PATIENTS WHO ARE [...] BE BASED ON THE PRIMARY CLINICAL RECORDS. [employer]. provides no warranty or guarantee of the accuracy or completeness of information in this document.
== END 2024-01-29 15:16 | disposition home or self-care (01) ==
LOC: RAD 15:16
PROVIDERS: PCP Nurse Practitioner; Visit Provider Podiatrist Foot & Ankle Surgery
DX: M79.672 Pain in left foot (principal); M24.675 Ankylosis, left foot
CPT/HCPCS: 73630

== ENCOUNTER 2024-04-16 15:16 | Outpatient (OUT) | payer OTHER, SELFPAY ==
--- NOTE | 2024-04-16 | XR_ITS ---
[facility] [place] [id number] Patient Name: ARY WRIGHT MRN: [id number] date: 1985 Sex: F Assigned Patient Location: [facility] Current Patient Location: Accession/Order Number: [id number] Exam Date: 04/17/2024 10:51 Report Date: 04/17/2024 10:54 At the request of: ELLIE THOMAS DPDaja Procedure: XR foot LT min 3V LEFT FOOT - 3 views CLINICAL HISTORY: LEFT FOOT PAIN COMPARISON: Left foot series 01/29/2024 FINDINGS: No focal soft tissue abnormality. No acute bony process is seen. Hardware is seen involving the first MTP joint without evidence of hardware complication. Scattered degenerative changes with plantar spurring as well as fragmentation at the talonavicular joint similar to the prior study. No bony erosions. XR/XR foot LT min 3V IMPRESSION: NO HARDWARE COMPLICATION. SCATTERED DEGENERATIVE CHANGES SIMILAR TO THE PRIOR STUDY WITHOUT BONY EROSIONS. Impression dictated by: Yvon Sanchez Jr., D.O.04/17/2024 10:54 AM Dictation Location: [facility] Electronically authenticated by: [id number] Date: 04/17/2024 10:54
--- OUTSIDE RECORDS SUMMARY | 2024-04-16 15:21 | XMS_ITS | CCD ---
Author Organization [facility] Care Team Providers Care Edge Burnisher Uppers Name Role Phone ANGELY, DR JOVAN Caraballo Consulting Unavailable ANGELY, DR JOVAN Caraballo Attending Unavailable PAT, DR JOVAN Caraballo Admitting Unavailable ANGELY, DR JOVAN Caraballo Primary Care Unavailable Mau Lacey. Primary Care Physician Donna Felton Attending Unavailable Alexandre, Donna Jordan Admitting Unavailable Alexandre, Donna L Attending Unavailable Alexandre, Donna L Attending Unavailable TIFFANY DEWITT Referring Unavailable ALEXANDRE, ODNNA L Primary Care Unavailable TIFFANY DEWITT Referring Unavailable ALEXANDRE, DONNA L Primary Care Unavailable TIFFANY DEWITT Referring Unavailable ALEXANDRE, DONNA L Primary Care Unavailable ALEXANDRE, DONNA L Primary Care Unavailable MARIA FERNANDA CHRISTIANSEN Attending UnavailBELKIS Medellin Attending Unavailable ANDREAS, BELKIS Referring Unavailable ALEXANDRE, DONNA L Primary Care Unavailable BELKIS MORRIS Attending Unavailable ANDREAS, BELKIS Referring Unavailable ALEXANDRE, DONNA L Primary Care Unavailable Alexandre CLINICAL LABORATORY SCIENTIST-GLOST TILE SHADER, Donna L Primary Care Provider ALEXANDRE, DONNA Jordan Referring Unavailable ALEXANDRE, DONNA L Primary Care Unavailable MARIAH ORDONEZ Attending Unavailable ALEXANDRE, DONNA L Referring Unavailable ALEXANDRE, DONNA L Primary Care Unavailable JOVAN PAT Referring Unavailable ALEXANDRE, DONNA L Primary Care Unavailable ALEXANDRE, DONNA L Referring Unavailable ALEXANDRE, DONNA L Primary Care Unavailable EDITH MORRISON Attending Unavailable ALEXANDRE, DONNA L Referring Unavailable ALEXANDRE, DONNA L Primary Care Unavailable Allergies Allergy Classification Reported Allergen(s) Allergy Type Date of Onset Reaction(s) Facility (1 source) Amoxicillin; Translations: [amoxicillin] Drug Allergy [facility] Repository (9 sources) Codeine; Translations: [CODEINE] Drug Allergy 03-24-2023 [facility] Repository Medications Current Medications Medication Drug Class(es) Dates Sig (Normalized) Sig (Original) 0.25 MG, 0.5 MG Dose 3 ML semaglutide 0.68 MG/ML Pen Injector (1 source) Start: 08-16-2022 inject 0.5 mg by subcutaneous injection every week semaglutide 2 mg/3 mL (0.25 mg or 0.5 mg dose) subcutaneous solution 0.5 mg, SubCutaneous, qWeek, # 3 mL, Refills(s) 0, Pharmacy: [facility]/pharmacy #[id number] Start Date: 08/16/22 Status: Ordered Albuterol (1 source) beta2-Adrenergic Agonist Start: 06-20-2022 take 2 puff(s) by inhalation every four hours Albuterol (Eqv-ProAir HFA) 2 puff(s), Inhalation, q4hr, Refill(s) 0 Start Date: 06/20/22 Status: Ordered calcium carbonate 1500 mg / cholecalciferol 0.01 mg oral tablet (6 sources) Vitamin D Start: 03-30-2022 calcium carbonate-vitamin D3 (CALTRATE) 600 mg(1,500mg) -400 units per tablet 03/30/2022 Active hydroCHLOROthiazide 12.5 mg / losartan potassium 50 mg oral tablet (7 sources) Thiazide Diuretic, Angiotensin 2 Receptor Marie [...] Active levothyroxine sodium 0.1 mg oral tablet (7 sources) l-Thyroxine Start: 06-20-2022 take 1 tablet [...] Active PARoxetine hydrochloride 10 mg oral tablet (7 sources) Serotonin Reuptake Inhibitor Start: 06-21-2022 take 1 tablet by mouth once daily at bedtime PARoxetine (PAXIL) 10 mg tablet Indications: Anxiety and depression TAKE 1 TABLET BY MOUTH EVERYDAY AT BEDTIME 30 tablet 06/26/2022 Active 1 mg dose 1.5 ml semaglutide 1.34 mg/ml pen injector (7 sources) Start: 09-06-2022 inject 1 mg by subcutaneous injection every week Ozempic 2 mg/1.5 mL (1 mg dose) subcutaneous solution 1 mg, SubCutaneous, qWeek, 4 EA, Refill(s) 1, [facility]/pharmacy #[id number], 172.3, cm, 09/06/22 17:10:00 EDT, Height/Length Dosing, 92.2, kg, 09/06/22 17:10:00 EDT, Weight Dosing Start Date: 09/06/22 Status: Ordered semaglutide (OZE MPIC) 1 mg/dose (2 mg/1.5 mL) pen injector Inject 1 mg under the skin every 7 days. Active Completed/Discontinued Medications Medication Drug Class(es) Dates Sig (Normalized) Sig (Original) 1 ml medroxyPROGESTERone acetate 150 mg/ml injection (17 sources) Progestin Start: End: medroxyPROGESTERone (DEPO-PROVERA) injection 150 mg Start: 03-07-2024 End: 03-07-2024 inject 150 mg by intramuscular injection once 150 mg, intramuscular, Once, On Sun03/07/24 at 0830, For 1 dose, Look-alike/sound-alike medication - verify indication for use. Start: 12-20-2023 End: 12-20-2023 medroxyPROGESTERone (DEPO-KY OVERA) injection 150 mg Start: 12-20-2023 End: 12-20-2023 inject 150 mg by intramuscular injection once 150 mg, intramuscular, Once, On Sun12/20/23 at 1600, For 1 dose, Look-alike/sound-alike medication - verify indication for use. Start: 10-04-2023 End: 10-04-2023 medroxyPROGESTERone (DEPO-KY OVERA) injection 150 mg Start: 10-04-2023 End: 10-04-2023 inject 150 mg by intramuscular injection once 150 mg, intramuscular, Once, On Essie 10/04/23 at 0900, For 1 dose, Look-alike/sound-alike medication - verify indication for use. Start: 07-11-2023 End: 07-11-2023 medroxyPROGESTERone (DEPO-KY OVERA) injection 150 mg Start: 07-11-2023 End: 07-11-2023 inject 150 mg by intramuscular injection once 150 mg, intramuscular, Once, On Sun07/11/23 at 0915, For 1 dose, Look-alike/sound-alike medication - verify indication for use. Start: 04-18-2023 End: 04-18-2023 medroxyPROGESTERone (DEPO-KY OVERA) injection 150 mg Start: 04-18-2023 End: 04-18-2023 medroxyPROGESTERone (DEPO-KY OVERA) injection 150 mg Start: 09-06-2022 inject [...] and screening for infectious disease (3 sources) Encounter for screening for infections with a predominantly sexual mode of transmission; Translations: [Patient encounter status] Onset: 12-20-2023 12-20-2023 Episodic Mood disorders (1 [...] Onset: 03-24-2023 Episodic Contraceptive and procreative management (7 sources) Contraception ; Translations: [Encounter for surveillance of injectable contraceptive] Onset: 07-11-2023 03-07-2024 Episodic Mood disorders (6 sources) Mood disorders Onset: 11-13-2022 Resolved: 12-20-2023 12-20-2023 Nonspecific chest pain (3 sources) Chest pain, unspecified; Translations: [Chest pain] Onset: 03-24-2023 Episodic Unclassified (1 source) CONTACT W/AND (SUSP) EXPOS COVID-19; Translations: [CONTACT W/AND (SUSP) EXPOS COVID-19] Onset: 10-12-2020 Unclassified (6 sources) Onset: 11-13-2022 Resolved: 12-20-2023 12-20-2023 Results Test Name Value Interpretation Reference Range Facility [facility] 01-01-2024 [facility] CAD [facility] W CAD ARY WRIGHT 1985 [id number] EXAM: [facility]M DIAGNOSTIC BILATERAL W CAD, 01/01/2024 [...] PM 1 b MAMM 1 YR Normal [facility] US BREAST LT LIMITEDon 12-31 US BREAST LT LIMITED US BREAST LT LIMITED ARY SYLVESTER ADRIANA 1985 [id number] EXAM: US BREAST LT LIMITED, 01/01/2024 2:05 [...] 01/01/2024 2:36 PM 1 MAMM 1 YR [facility] CHLAMYDIA/GC BY PCRon 2023 CHLAMYDIA/GC BY PCR [...] are dependent on adequate specimen collection. Normal [facility] Comment on above: Performed By: #### C GS #### [facility] ([id number]) [address] [place] [address], [address] [place] [address] TRICHOMONAS PCRon 12-20-2023 TRICHOMONAS PCR SPECIMEN SOURCE VAGINAL TRICHOMONAS PCR Not detected (qualifier value) Trichomonas vaginalis not detected NOTE Assay methodology is nucleic acid amplification by real-time PCR for detection of Trichomonas vaginalis DNA performed on valuklik GeneXpert Instrument System. Normal [facility] Comment on above: Performed By: #### T RKPCR #### [facility] ([id number]) [address] [place] [address], [address] [place] [address] Ambulatory Visit Summaryon 0 08-31-2023 Ambulatory Visit [...] choosing us for your care. Rocio Morris [facility] [...] looked at, pt has never seen a senior microsoft consultant History of Present Illness pt presents today [...] causing pain now. will send referral to senior microsoft consultant. Ordered: [facility] [place] External Ambulatory Referral 2. Heel pain, bilateral (M79.671: Pain in right foot) both heels are painful especially when on her feet for a while. Ordered: [facility] [place] External Ambulatory Referral 3. Pain in left foot (M79.672: Pain in left foot) bunion is now painful on left foot. has had it for years but now it's bothering her Ordered: [facility] [place] External Ambulatory Referral 4. Diabetes mellitus type II, controlled (E11.9: Type 2 diabetes mellitus without complications) will increase ozempic Ordered: semaglutide, 1 mg, SubCutaneous, qWeek, 4 EA, Refill(s) 1, [facility]/pharmacy #[id number], 172.3, cm, 09/06/22 17:10:00 EDT, Height/Length Dosing, 92.2, kg, 09/06/22 17:10:00 EDT, Weight Dosing [facility] [place] External Ambulatory Referral 5. BMI 36.0-36.9,adult (Z68.36: Body mass index [BMI] 36.0-36.9, adult) BMI education given Ordered: [facility] [place] External Ambulatory Referral 6. Non-smoker (Z78.9: Other specified health status) continue not smoking Ordered: semaglutide, 1 mg, SubCutaneous, qWeek, 4 EA, Refill(s) 1, [id number], 172.3, cm, 09/06/22 17:10:00 EDT, Height/Length Dosing, 92.2, kg, 09/06/22 17:10:00 EDT, Weight Dosing Orders: semaglutide, 1.7 mg, SubCutaneous, qWeek, # 12 EA, Refills(s) 1, Pharmacy: [facility]/pharmacy #[id number], 172.3, cm, 08/31/23 10:09:00 [...] intramuscular suspension, 150 mg, IntraMuscular, q3mo hydrochlorothiazide-los anid 12.5 mg-50 mg Tab, 1 tab(s), Oral, [...] 09/30/1990 Recorded Hib, unspecified formulation 09/30/1990 Recorded [facility] Comment on above: Result Comment: Elec tronically Signed By: Donna Perla\.richard\Date and Time Signed: 08/31/23 10:57 EDT Pre-Certification Formon Pre-Certification Form [id number]#1.00TI FF [facility] Pre-Certification Formon Pre-Certification Form [id number] IFF Normal [facility] CBC AND AUTO DIFFon 03-24-19 24 ABSOLUTE BASOPHIL 0.1 X10E9/L Normal 0.0-0.2 [facility] Comment on above: Performed By: #### C BCA, CMP, 3040-3, 69016-9, 83562-2, 04044- 5, THYR #### [facility] ([id number]) [address] [place] [address] ABSOLUTE NEUTROPHIL 3.6 X10E9/L Normal 1.5-6.6 [facility] Comment on above: Performed By: #### C BCA, CMP, 3040-3, 20865-2, 89748-3, 03962- 5, THYR #### [facility] ([id number]) [address] [place] [address] 78613 Basophils/100 WBC (Bld) 0.9 % Normal [facility] Comment on above: Performed By: #### C BCA, CMP, 3040-3, 07233-9, 60915-3, 40402- 5, THYR #### [facility] ([id number]) [address] [place] [address] 84259 Eosinophils (Bld) [#/Vol] 0.1 10*3/uL Normal 0.0-0.4 [facility] Comment on above: Performed By: #### C BCA, CMP, 3040-3, 58947-2, 99345-2, 70931- 5, THYR #### [facility] ([id number]) [address] [place] [address] 00601 Eosinophils/100 WBC (Bld) 2.5 % Normal [facility] Comment on above: Performed By: #### C BCA, CMP, 3040-3, 79243-3, 18831-1, 10311- 5, THYR #### [facility] ([id number]) [address] [place] [address] 73507 Erythrocyte distribution width (RBC) [Ratio] 12.7 % Normal 11.5-15.0 [facility] Comment on above: Performed By: #### C BCA, CMP, 3040-3, 44144-8, 26368-0, 12711- 5, THYR #### [facility] ([id number]) [address] [place] [address] 56776 Hematocrit (Bld) [Volume fraction] 43.1 % Normal 35-47 [facility] Comment on above: Performed By: #### C BCA, CMP, 3040-3, 30153-3, 65121-4, 14789- 5, THYR #### [facility] ([id number]) [address] [place] [address] 76309 Hemoglobin (Bld) [Mass/Vol] 14.7 g/dL Normal 11.7-15.5 [facility] Comment on above: Performed By: #### C BCA, CMP, 3040-3, 45409-5, 25036-2, 55946- 5, THYR #### [facility] ([id number]) [address] [place] [address] 99796 Lymphocytes (Bld) [#/Vol] 1.3 10*3/uL Normal 1.0-3.5 [facility] Comment on above: Performed By: #### C BCA, CMP, 3040-3, 62177-6, 68564-0, 29096- 5, THYR #### [facility] ([id number]) [address] [place] [address] 22859 Lymphocytes/100 WBC (Bld) 22.8 % Normal [facility] Comment on above: Performed By: #### C BCA, CMP, 3040-3, 86933-2, 37417-3, 51857- 5, THYR #### [facility] ([id number]) [address] [place] [address] 86760 MCH (RBC) [Entitic mass] 32.9 pg Normal 27-34 [facility] Comment on above: Performed By: #### C BCA, CMP, 3040-3, 56016-3, 68310-6, 67095- 5, THYR #### [facility] ([id number]) [address] [place] [address] 25894 MCHC (RBC) [Mass/Vol] 34.1 g/dL Normal 32-36 [facility] Comment on above: Performed By: #### C BCA, CMP, 3040-3, 60862-7, 35238-8, 87176- 5, THYR #### [facility] ([id number]) [address] [place] [address] 45534 MCV (RBC) [Entitic vol] 97 fL Normal 80-100 [facility] Comment on above: Performed By: #### C BCA, CMP, 3040-3, 58220-6, 76072-4, 62036- 5, THYR #### [facility] ([id number]) [address] [place] [address] 02775 Monocytes (Bld) [#/Vol] 0.6 10*3/uL Normal 0-0.9 [facility] Comment on above: Performed By: #### C BCA, CMP, 3040-3, 34001-9, 14397-8, 77663- 5, THYR #### [facility] ([id number]) [address] [place] [address] 88996 Monocytes/100 WBC (Bld) 10.4 % Normal [facility] Comment on above: Performed By: #### C BCA, CMP, 3040-3, 08170-2, 43286-5, 08014- 5, THYR #### [facility] ([id number]) [address] [place] [address], [place] [address] Neutrophils/100 WBC (Bld) 63.4 % Normal [facility] Comment on above: Performed By: #### C BCA, CMP, 3040-3, 99575-1, 01788-8, 84313- 5, THYR #### [facility] ([id number]) [address] [place] [address] 97351 Platelet mean volume (Bld) [Entitic vol] 8.1 fL Normal 7-12 [facility] Comment on above: Performed By: #### C BCA, CMP, 3040-3, 84057-1, 95637-1, 10820- 5, THYR #### [facility] ([id number]) [address] [place] [address] 41789 Platelets (Bld) [#/Vol] 269 10*3/uL Normal 150-450 [facility] Comment on above: Performed By: #### C BCA, CMP, 3040-3, 51960-5, 38594-2, 94184- 5, THYR #### [facility] ([id number]) [address] [place] [address] 20863 RBC COUNT 4.46 X10E12/L Normal 3.80-5.20 [facility] Comment on above: Performed By: #### C BCA, CMP, 3040-3, 35799-1, 69063-8, 23313- 5, THYR #### [facility] ([id number]) [address] [place] [address] 02130 WBC (Bld) [#/Vol] 5.7 10*3/uL Normal 4.0-11.0 [facility] Comment on above: Performed By: #### C BCA, CMP, 3040-3, 02867-3, 30872-9, 09340- 5, THYR #### [facility] ([id number]) [address] [place] [address] 12697 COMPREHENSIVE METABOLIC PANE Jd 03-24-2023 Albumin [Mass/Vol] 4.8 g/dL Normal 3.2-5.3 [facility] Comment on above: Performed By: #### C BCA, CMP, 3040-3, 83551-1, 63491-4, 65855- 5, THYR #### [facility] ([id number]) [address] [place] [address] 83267 ALP [Catalytic activity/Vol] 54 U/L Normal 39-130 [facility] Comment on above: Performed By: #### C BCA, CMP, 3040-3, 30908-6, 85639-2, 14370- 5, THYR #### [facility] ([id number]) [address] [place] [address] 02862 ALT [Catalytic activity/Vol] 24 U/L Normal 0-31 [facility] Comment on above: Performed By: #### C BCA, CMP, 3040-3, 46766-1, 30084-7, 73663- 5, THYR #### [facility] ([id number]) [address] [place] [address] 74716 Anion gap [Moles/Vol] 10 mmol/L Normal 5-15 [facility] Comment on above: Performed By: #### C BCA, CMP, 3040-3, 02527-2, 50080-4, 31864- 5, THYR #### [facility] ([id number]) [address] [place] [address] 53253 AST [Catalytic activity/Vol] 21 U/L Normal 0-41 [facility] Comment on above: Performed By: #### C BCA, CMP, 3040-3, 06838-1, 91536-7, 12516- 5, THYR #### [facility] ([id number]) [address] [place] [address] 66438 Bilirubin [Mass/Vol] 0.9 mg/dL Normal 0.3-1.2 [facility] Comment on above: Performed By: #### C BCA, CMP, 3040-3, 71684-5, 24445-2, 98018- 5, THYR #### [facility] ([id number]) [address] [place] [address] 05904 Calcium [Mass/Vol] 9.0 mg/dL Normal 8.5-10.5 [facility] Comment on above: Performed By: #### C BCA, CMP, 3040-3, 45210-8, 40825-3, 27079- 5, THYR #### [facility] ([id number]) [address] [place] [address] 88155 Chloride [Moles/Vol] 106 mmol/L Normal 98-109 [facility] Comment on above: Performed By: #### C BCA, CMP, 3040-3, 35600-7, 67143-7, 16364- 5, THYR #### [facility] ([id number]) [address] [place] [address] 90714 CO2 [Moles/Vol] 23 mmol/L Normal 22-32 [facility] Comment on above: Performed By: #### C BCA, CMP, 3040-3, 82313-5, 86291-4, 67478- 5, THYR #### [facility] ([id number]) [address] [place] [address] 81229 Creatinine [Mass/Vol] 0.87 mg/dL Normal 0.40-1.00 [facility] Comment on above: Result Comment: METH OD TRACEABLE TO IDMS STANDARD Performed By: #### C BCA, CMP, 3040-3, 58373-4, 45957-4, 72211-5, THYR #### [facility] ([id number]) [address] [place] [address] 49357 GFR/1.73 sq M.predicted among non-blacks MDRD (S/P/Bld) [Vol rate/Area] 89 mL/min/{1.73_m2} Normal >59 [facility] Comment on above: Result Comment: Reported eGFR is based on the CKD-EPI 2020 equation that does not use a race coefficient. Performed By: #### C BCA, CMP, 3040-3, 79240-7, 60942-1, 62411-9, THYR #### [facility] ([id number]) [address] [place] [address] 60703 Glucose [Mass/Vol] 105 mg/dL High 65-99 [facility] Comment on above: Performed By: #### C BCA, CMP, 3040-3, 15320-6, 04340-1, 15001- 5, THYR #### [facility] ([id number]) [address] [place] [address] 59693 Potassium [Moles/Vol] 3.8 mmol/L Normal 3.5-5.0 [facility] Comment on above: Performed By: #### C BCA, CMP, 3040-3, 56119-3, 21414-1, 03571- 5, THYR #### [facility] ([id number]) [address] [place] [address] 63099 Protein [Mass/Vol] 7.7 g/dL Normal 6.0-8.0 [facility] Comment on above: Performed By: #### C BCA, CMP, 3040-3, 55391-6, 18436-5, 43900- 5, THYR #### [facility] ([id number]) [address] [place] [address] 78015 Sodium [Moles/Vol] 139 mmol/L Normal 134-146 [facility] Comment on above: Performed By: #### C BCA, CMP, 3040-3, 28354-1, 45748-3, 76143- 5, THYR #### [facility] ([id number]) [address] [place] [address] 64620 Urea nitrogen [Mass/Vol] 12 mg/dL Normal 5-23 [facility] Comment on above: Performed By: #### C BCA, CMP, 3040-3, 31637-2, 66400-0, 13323- 5, THYR #### [facility] ([id number]) [address] [place] [address], [place] [address] CT ABDOMEN AND PELVIS W CONT on [...] Mitchell MD on 03/24/2023 11:09 AM Normal [facility] Fibrin D-dimer DDU (PPP) [Ma ss/Vol]on 03-24-2023 D DIMER <150 Normal <255 [facility] Comment on above: Result Comment: Results <255 ng/mL DDU: The presence of a VTE can safely be excluded with a negative D-Dimer result and Wells score. A negative result doesn't exclude the possibility of DIC. The test be repeated along with other diagnostic tests if the patient's symptoms persist or worsen. [email or web address] Performed By: #### C BCA, CMP, 3040-3, 69468-7, 87678-3, 13414-8, THYR #### [facility] ([id number]) [address] [place] [address] 94208 HCG ( test) Ql (U)o n 03-24-2023 Beta HCG ( test) Ql (U) Negative Normal NEG [facility] Comment on above: Performed By: #### C BCA, CMP, 3040-3, 50261-9, 84507-3, 60613- 5, THYR #### [facility] ([id number]) [address] [place] [address] 06387 LIPASEon 03-24-2023 Lipase [Catalytic activity/Vol] 44 U/L High 17-40 [facility] Comment on above: Performed By: #### C LIMA, CMP, 3040-3, 74705-5, 07269-3, 26416- 5, THYR #### [facility] ([id number]) [address] [place] [address] 11555 MAGNESIUMon 03-24-2023 Magnesium [Mass/Vol] 2.1 mg/dL Normal 1.8-2.6 [facility] Comment on above: Performed By: #### C BCA, CMP, 3040-3, 00691-8, 58804-8, 00921- 5, THYR #### [facility] ([id number]) [address] [place] [address] 08197 THYROID PROFILEon 03-24-2023 Free T4 [Mass/Vol] 0.88 ng/dL Normal 0.61-1.60 [facility] Comment on above: Performed By: #### C BCA, CMP, 3040-3, 50367-6, 72475-7, 95348- 5, THYR #### [facility] ([id number]) [address] [place] [address] 27293 TSH 1.29 uIU/mL Normal 0.49-4.67 [facility] Comment on above: Performed By: #### C BCA, CMP, 3040-3, 19714-0, 90366-7, 98592- 5, THYR #### [facility] ([id number]) [address] [place] [address] 34055 TROPONIN Ion 03-24-2023 Troponin I.cardiac [Mass/Vol] ng/mL Normal 0.00-0.04 [facility] Comment on above: Performed By: #### C BCA, CMP, 3040-3, 38119-3, 71630-7, 76846- 5, THYR #### [facility] ([id number]) [address] [place] [address] [place] [address] URN MACROSCOPIC NURon 2023 BILIRUBIN ANNE Negative Normal NEG [facility] Comment on above: Performed By: #### N UM #### [facility] ([id number]) [address] [place] [address] [place] [address] BLOOD/HGB ANNE Negative Normal NEG [facility] Comment on above: Performed By: #### N UM #### [facility] ([id number]) [address] [place] [address] [place] [address] GLUCOSE ANNE Negative Normal NEG [facility] Comment on above: Performed By: #### N UM #### [facility] ([id number]) [address] [place] [address] [place] [address] KETONES ANNE Negative Normal NEG [facility] Comment on above: Performed By: #### N UM #### [facility] ([id number]) [address] [place] [address] [place] [address] LEUKOCYTE ESTERASE ANNE Negative Normal NEG [facility] Comment on above: Performed By: #### N UM #### [facility] ([id number]) [address] [place] [id number] NITRITE ANNE Negative Normal NEG [facility] Comment on above: Performed By: #### N UM #### [facility] ([id number]) [address] [place] [id number] PH ANNE 5.5 Normal 5.0-8.5 [facility] Comment on above: Performed By: #### N UM #### [facility] ([id number]) [address] [place] [address] PROTEIN ANNE Negative Normal NEG [facility] Comment on above: Performed By: #### N UM #### [facility] ([id number]) [address] [place] [address] SPECIFIC GRAVITY ANNE 1.010 Normal 1.003-1.035 [facility] Comment on above: Performed By: #### N UM #### [facility] ([id number]) [address] [place] [id number] UROBILINOGEN ANNE 0.2 eu/dL Normal <1.1 [facility] Comment on above: Performed By: #### N UM #### [facility] ([id number]) [address] [place] [address] XR CHEST 1 VWon 03-24-2023 XR CHEST [...] Pinto MD on 03/24/2023 10:39 AM Normal [facility] Reminderson 09-08-2022 Reminders - From: Donna Perla To: [facility] - Clinical; Sent: 09/08/2022 07:38:15 EDT Show up: 09/08/2022 07:38:00 EDT Subject: Ambulatory Reminder Due Date/Time: 09/09/2022 07:37:00 EDT Let pt know her labs were all normal. ALBUM8B is 5.3 Results: Date Result Name Ind [...] 30.1 % (14.0 - 50.0) 09/06/2022 17:35 [place] Auto 6.5 % (4.0 - 14.0) 09/06/2022 17:35 Eos Auto 0.9 % (0.0 - 8.0) 09/06/2022 17:35 Basophil Auto 0.8 % (0.0 - 2.0) 09/06/2022 17:35 Neutro Absolute 3.6 E9/L (2.0 - 7.5) 09/06/2022 17:35 Lymph Absolute 1.8 E9/L (1.0 - 4.0) 09/06/2022 17:35 [place] Absolute 0.4 E9/L (0.2 - 1.0) 09/06/2022 [...] 5.60) notified patient of message below Normal [facility] Auto Diffon 09-07-2022 Basophils/100 WBC (Bld) 0.8 % Normal 0.0-2.0 [facility] Comment on above: Order Comment: Order Added by Discern Expert. Performed By: #### 2 719153, 2768479, 5228704, 8890851, 350412680, 7259168, 46771765 #### [facility] [address] [place] [address] Basophils/Leukocyt es Auto (Bld) [Pure # fraction] 0.0 E9/L Normal 0.0-0.2 [facility] Comment on above: Order Comment: Order Added by Discern Expert. Performed By: #### 2 124031, 6882549, 3947388, 0160753, 245859915, 4316066, 06393797 #### [facility] [address] [place] [address] Eosinophils/100 WBC (Bld) 0.9 % Normal 0.0-8.0 [facility] Comment on above: Order Comment: Order Added by Discern Expert. Performed By: #### 2 216777, 1696288, 8976709, 8555908, 796906291, 8675285, 20016773 #### [facility] [address] [place] [address] Eosinophils/Leukoc ytes Auto (Bld) [Pure # fraction] 0.1 E9/L Normal 0.0-0.5 [facility] Comment on above: Order Comment: Order Added by Discern Expert. Performed By: #### 2 809778, 4649977, 7370450, 3316429, 838264378, 4883587, 19527984 #### [facility] [address] [place] [address] Lymphocytes/100 WBC (Bld) 30.1 % Normal 14.0-50.0 [facility] Comment on above: Order Comment: Order Added by Discern Expert. Performed By: #### 2 297163, 6277987, 9992826, 6783428, 068291205, 3654765, 80228047 #### [facility] [address] [place] [address] Lymphocytes/Leukoc ytes Auto (Bld) [Pure # fraction] 1.8 E9/L Normal 1.0-4.0 [facility] Comment on above: Order Comment: Order Added by Discern Expert. Performed By: #### 2 092757, 1727100, 6508673, 3461326, 557308842, 7304824, 09820576 #### [facility] [address] [place] [address] Monocytes/100 WBC (Bld) 6.5 % Normal 4.0-14.0 [facility] Comment on above: Order Comment: Order Added by Discern Expert. Performed By: #### 2 767415, 9337492, 5097622, 2559154, 025023432, 3025318, 07674739 #### [facility] [address] [place] [address] Monocytes/Leukocyt es Auto (Bld) [Pure # fraction] 0.4 E9/L Normal 0.2-1.0 [facility] Comment on above: Order Comment: Order Added by Discern Expert. Performed By: #### 2 525754, 4996460, 5944222, 0742541, 121195582, 2893952, 74900559 #### [facility] [address] [place] [address] Neutrophils/100 WBC (Bld) 61.7 % Normal 36.0-75.0 [facility] Comment on above: Order Comment: Order Added by Discern Expert. Performed By: #### 2 437722, 7070459, 2567870, 0127017, 157280027, 7635911, 75838918 #### [facility] [address] [place] [address] Neutrophils/Leukoc ytes Auto (Bld) [Pure # fraction] 3.6 E9/L Normal 2.0-7.5 [facility] Comment on above: Order Comment: Order Added by Discern Expert. Performed By: #### 2 489709, 7169197, 5689631, 3474592, 174364360, 5262860, 02860448 #### [facility] [address] [place] [address] CBC w/ Auto Diffon 3 Erythrocyte distribution width (RBC) [Ratio] 14.4 % High 10.9-14.2 [facility] Comment on above: Performed By: #### 2 700277, 9526682, 0024285, 5415114, 953555968, 9176804, 44634386 #### [facility] [address] [place] [address] Hematocrit (Bld) [Volume fraction] 43.4 % Normal 34.0-46.0 [facility] Comment on above: Performed By: #### 2 974950, 6531092, 8941707, 1988491, 513376255, 0614930, 39230551 #### [facility] [address] [place] [address] Hemoglobin (Bld) [Mass/Vol] 14.0 g/dL Normal 12.0-16.0 [facility] Comment on above: Performed By: #### 2 898693, 6596190, 8382615, 6887802, 217203758, 8164085, 99825539 #### [facility] [address] [place] [address] MCH (RBC) [Entitic mass] 33.3 pg Normal 27.0-34.0 [facility] Comment on above: Performed By: #### 2 992446, 6708561, 4541141, 5444220, 866647374, 8661283, 67333429 #### [facility] [address] [place] [address] MCHC (RBC) [Mass/Vol] 32.4 g/dL Normal 31.4-36.0 [facility] Comment on above: Performed By: #### 2 826155, 9953857, 0343506, 8500848, 549963691, 4721324, 31646506 #### [facility] [address] [place] [address] MCV (RBC) [Entitic vol] 102.8 fL High 80.0-100.0 [facility] Comment on above: Performed By: #### 2 644202, 1837169, 7006405, 0652392, 961125170, 8122940, 62989991 #### [facility] [address] [place] [address] Platelet mean volume (Bld) [Entitic vol] 9.3 fL Normal 6.4-10.8 [facility] Comment on above: Performed By: #### 2 386355, 0442269, 2081562, 6595713, 091855331, 6721296, 19284606 #### [facility] [address] [place] [address] Platelets (Bld) [#/Vol] 264.0 E9/L Normal 150.0-500.0 [facility] Comment on above: Performed By: #### 2 698311, 9684569, 4901649, 2492063, 467838997, 5975020, 36548918 #### [facility] [address] [place] [address] RBC (Bld) [#/Vol] 4.2 E12/L Low 4.3-5.9 [facility] Comment on above: Performed By: #### 2 323970, 5673755, 9446743, 7604031, 616421054, 6745633, 32339978 #### [facility] [address] [place] [address] WBC corrected for nucl RBC Auto (Bld) [#/Vol] 5.9 E9/L Normal 4.0-11.0 [facility] Comment on above: Performed By: #### 2 513589, 3795585, 9380668, 2680778, 944464418, 7132794, 53559647 #### [facility] [address] [place] [address] CMPon 09-07-2022 Albumin [Mass/Vol] 4.3 g/dL Normal 3.3-5.0 [facility] Comment on above: Performed By: #### 2 164939, 0533893, 1062300, 9363140, 504236214, 7475682, 88712843 #### [facility] [address] [place] [address] Albumin/Globulin (S) [Mass conc ratio] 1.6 Normal 1.1-2.2 [facility] Comment on above: Performed By: #### 2 895083, 7158144, 0012221, 2137313, 510648275, 6991866, 18676934 #### [facility] [address] [place] [address] ALP [Catalytic activity/Vol] 41 Int._Unit/L Normal 21-98 [facility] Comment on above: Performed By: #### 2 820109, 7116000, 4883109, 0226377, 714334159, 3429640, 49277108 #### [facility] [address] [place] [address] ALT No additional P-5'-P [Catalytic activity/Vol] 27 Int._Unit/L Normal 6-46 [facility] Comment on above: Performed By: #### 2 641021, 1289771, 1219145, 7022803, 957805425, 7361945, 59666159 #### [facility] [address] [place] [address] Anion gap [Moles/Vol] 11 mmol/L Normal 6-16 [facility] Comment on above: Performed By: #### 2 879074, 0516068, 6083660, 2453457, 303710178, 9857973, 18771840 #### [facility] [address] [place] [address] AST [Catalytic activity/Vol] 25 Int._Unit/L Normal 5-43 [facility] Comment on above: Performed By: #### 2 583839, 2465055, 7436021, 5589871, 268456785, 7168710, 14332105 #### [facility] [address] [place] [address] Bilirubin [Mass/Vol] 0.8 mg/dL Normal 0.0-1.1 [facility] Comment on above: Performed By: #### 2 082603, 5371563, 8874389, 4327359, 271395333, 1932404, 58096126 #### [facility] [address] [place] [address] Calcium [Mass/Vol] 9.1 mg/dL Normal 8.9-11.1 [facility] Comment on above: Performed By: #### 2 766964, 3743458, 7479698, 3298589, 938709523, 9552939, 73034312 #### [facility] [address] [place] [address] Chloride [Moles/Vol] 109 mmol/L Normal 101-111 [facility] Comment on above: Performed By: #### 2 616388, 5159565, 4239785, 0935799, 872421080, 1878188, 27051462 #### [facility] [address] [place] [address] CO2 [Moles/Vol] 23 mmol/L Normal 21-31 [facility] Comment on above: Performed By: #### 2 598893, 8005183, 3386846, 8918380, 106932147, 0279855, 39115882 #### [facility] [address] [place] [address] Creatinine [Mass/Vol] 0.8 mg/dL Normal 0.5-1.3 [facility] Comment on above: Performed By: #### 2 439014, 5190645, 5954068, 5788607, 892115891, 8311549, 83360625 #### [facility] [address] [place] [address] Globulin (S) [Mass/Vol] 2.7 g/dL Normal 1.4-4.0 [facility] Comment on above: Performed By: #### 2 362015, 4143732, 3987247, 7908885, 016785720, 8043259, 54993835 #### [facility] [address] [place] [address] Glucose [Mass/Vol] 106 mg/dL Normal 55-199 [facility] Comment on above: Result Comment: If t his glucose result represents a fasting glucose, interpretation should refer to the following reference range: 55-99 mg/dL Performed By: #### 2 248883, 5504777, 6445564, 5527646, 054420902, 3630440, 19506930 #### [facility] [address] [place] [address] Potassium [Moles/Vol] 3.6 mmol/L Normal 3.5-5.3 [facility] Comment on above: Performed By: #### 2 532359, 2872271, 9603173, 1616065, 984066901, 5737945, 13087891 #### [facility] [address] [place] [address] Protein [Mass/Vol] 7.0 g/dL Normal 6.0-7.8 [facility] Comment on above: Performed By: #### 2 122870, 4592030, 3851033, 7875331, 549009577, 7464658, 89475425 #### [facility] [address] [place] [address] Sodium [Moles/Vol] 139 mmol/L Normal 135-145 [facility] Comment on above: Performed By: #### 2 028806, 5846871, 5820525, 7399715, 075493247, 0462906, 68796478 #### [facility] [address] [place] [address] Urea nitrogen [Mass/Vol] 10 mg/dL Normal 5-21 [facility] Comment on above: Performed By: #### 2 424953, 6934798, 8873564, 0438684, 252305646, 5897906, 21733970 #### [facility] [address] [place] [address] Urea nitrogen/Creatinin e [Mass ratio] 12 No Units Normal 10-20 [facility] Comment on above: Performed By: #### 2 783214, 0360087, 8559273, 2524088, 424200652, 9177458, 99683185 #### [facility] [address] [place] [address] [id number] 09-07-2022 HbA1c (Bld) [Mass fraction] 5.3 % Normal <=5.9 [facility] Comment on above: Performed By: #### 2 112410, 7822345, 5721876, 8190176, 423799616, 1260909, 46729808 #### [facility] [address] [place] [address] Lipid Panelon 09-07-2022 Cholesterol [Mass/Vol] 133 mg/dL Normal 120-200 [facility] Comment on above: Performed By: #### 2 797670, 3282791, 1565545, 7587022, 119441823, 3265525, 98839544 #### [facility] [address] [place] [address] Cholesterol in HDL [Mass/Vol] 60 mg/dL Invalid Interpretation Code [facility] Comment on above: Result Comment: HDL > or equal to 60 mg/dL: Low cardiovascular risk HDL < 40 mg/dL : High cardiovascular risk Performed By: #### 2 655666, 9315118, 9058658, 4415128, 136454165, 9179815, 08081200 #### [facility] [address] [place] [address] Cholesterol in LDL [Mass/Vol] 59 mg/dL Normal <=129 [facility] Comment on above: Performed By: #### 2 451276, 7680503, 5073134, 3217800, 077894684, 6474658, 23629618 #### [facility] [address] [place] [address] Cholesterol in VLDL [Mass/Vol] 8 mg/dL Normal 7-40 [facility] Comment on above: Performed By: #### 2 396043, 6881144, 0324020, 0831245, 918538280, 7368309, 39762797 #### [facility] [address] [place] [address] Triglyceride [Mass/Vol] 41 mg/dL Normal <=149 [facility] Comment on above: Performed By: #### 2 813313, 6739974, 9739552, 1710880, 320671420, 9139795, 78089161 #### [facility] [address] [place] [address] TSHon 09-07-2022 TSH Qn 0.74 m[IU]/L Normal 0.34-5.60 [facility] Comment on above: Performed By: #### 2 945909, 6398774, 4636652, 4103102, 053646095, 9177271, 96758329 #### [facility] [address] [place] [address] eGFRon 09-07-2022 GFR/1.73 sq M.predicted among non-blacks MDRD (S/P/Bld) [Vol rate/Area] 99 mL/min/1.73 m2 Normal >=59 [facility] Comment on above: Order Comment: Order added by Discern Expert. Result Comment: Machine Erector siobhan kidney disease could be indicated at eGFR's of less than 60 mL/min/1.73m2. Kidney failure is indicated at less than 15 mL/min/1.73m2. 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 Normal [facility] Comment on above: Result Comment: Elec tronically Signed By: Donna Perla\.richard\Date and Time Signed: 09/06/22 17:32 EDT Covid-19 PCR (CVDTBH)on 09-26 SARS-CoV-2 (COVID-19) RNA MIKE+probe Ql (Unsp spec) Not detected Normal NOT DETECTED [facility] Comment on above: Result Comment: This test is not yet approved or cleared by the [place] FDA. When there are no FDA-approved or cleared tests available, and other criteria are met, FDA can make tests available under an emergency access mechanism called an Emergency Use Authorization (EUA). The EUA for this test is supported by the Novelty of Health and Human Service's (HHS's) declaration [...] consistent with SARS-CoV-2. Performed By: #### C VDTB, CVDAGS #### [facility] [address] [place] [address] Marilee Sheridan SYMPTOMATIC COVID-19 ANTIGEN on 10-12-2020 EUA Statement SEE BELOW Normal [facility] Comment on above: Result Comment: [...] Performed By: #### C VDTBH, CVDAGS #### [facility] [address] [place], [place] [address] Marilee Sheridan SARS-CoV-2 (COVID-19) RNA MIKE+probe Ql (Unsp spec) Negative Normal NEGATIVE [facility] Comment on above: Result Comment: CONF IRMATION BY PCR PENDING PER CDC GUIDELINES/ SYMPTOMATIC PATIENT. Performed By: #### C VDTBH, CVDAGS #### [facility] [address] [place], [place] [address] Marilee Sheridan Vital Signs Date Time Vital Sign Value Performing Clinician Faci lity 12-20-2023 15: Body height 176.5 cm [facility] 12-20-2023 15: Body mass index (BMI) [Ratio] 36.71 kg/m2 [facility] 12-20-2023 15: Body weight 114.4 kg [facility] 12-20-2023 15:040 Diastolic blood pressure 74 mm[Hg] [facility] 12-20-2023 15:040 Systolic blood pressure 122 mm[Hg] [facility] Encounters Encounter Date Encounter Type Care Provider Facility Start: 03-07-2024 End: 03-07-2024 [facility]ulatory [facility] Start: 03-07-2024 End: 03-07-2024 Patient encounter procedure [facility] CLINICAL LABORATORY SCIENTIST-[employer]OST TILE SHADER Work Phone: [facility] Comment on above: Encounter for survei llance of injectable contraceptive (Primary Dx) Start: 01-01-2024 End: 01-01-2024 ambulatory [facility] Start: 12-21-2023 End: 12-21-2023 Telephone encounter Ana Maria Do [facility] Start: 12-20-2023 End: 12-20-2023 ambulatory [facility] Start: 12-20-2023 End: 12-20-2023 [facility] Work Phone: Start: 12-20-2023 End: 12-20-2023 Periodic preventive med est patient 18-39 yrs [facility] Comment on above: Well woman exam with routine gynecological exam (Primary Dx); Screening for STD (sexually transmitted disease); Encounter for surveillance of injectable contraceptive; Breast pain, left Start: 12-20-2023 End: 12-20-2023 ambulatory [facility] Start: 12-20-2023 Encounter for gynecological examination (general) (routine) without abnormal findings [facility] Start: 10-04-2023 End: 10-04-2023 ambulatory [facility] Start: 10-04-2023 End: 10-04-2023 Patient encounter procedure Mariah Ordonez CLINICAL LABORATORY SCIENTIST-GLOST TILE SHADER Work Phone: [facility] Comment on above: Encounter for survei llance of injectable contraceptive (Primary Dx) Start: 08-31-2023 End: 08-31-2023 ambulatory [facility] Facility:[facility] Start: 07-11-2023 End: 07-11-2023 NO CHARGE LEVEL OF SERVICE [facility] Start: 07-11-2023 End: 07-11-2023 ambulatory [facility] Comment on above: Encounter for survei llance of injectable contraceptive (Primary Dx) Start: 04-18-2023 End: 04-18-2023 ambulatory JOVAN PAT [facility] Comment on above: Encounter for survei llance of injectable contraceptive (Primary Dx) Start: 04-18-2023 End: 04-18-2023 NO CHARGE LEVEL OF SERVICE [facility] Start: 03-24-2023 End: 03-25-2023 Emergency department patient visit [facility] Start: 09-06-2022 End: 09-06-2022 Lab Drop off [facility] Start: 09-06-2022 End: 09-06-2022 ambulatory Donna Felton Facility:[facility] [place] [place] Start: 10-12-2020 End: 10-13-[address] JOVAN PAT Facility: Procedures Date Procedure Procedure Detail Performing Clinician Start: 12-20-2023 Adult depression scr eening assessment [facility] Start: 11-13-2022 Adult depression scr eening assessment [facility] Start: 05-16-2021 Microscopic observat ion [Identifier] in Cervix by Cyto stain [facility] section Donna Felton Plan of Treatment Date Care Activity Detail Author Start: 12-19-2024 Adult BMI Follow Up Plan Adult BMI Follow Up Plan [facility] Start: 12-19-2024 Adult BMI Screening Adult BMI Screen ing [facility] Start: 12-19-2024 Depression Screening Depression Scre ening [facility] Start: 12-19-2024 Tobacco Screening Tobacco Screening [facility] Start: 05-16-2024 Screening for malign ant neoplasm of cervix Pap Smear [facility] Start: 03-24-2024 Adult BMI Screening Adult BMI Screen ing [facility] Start: 03-24-2024 Tobacco Screening Tobacco Screening [facility] Start: 03-07-2024 End: 03-07-2024 Patient encounter procedure 03/07/2024 8:00 AM EST Procedure visit [facility] [address] [place] [id number] Edith Morrison, CLINICAL LABORATORY SCIENTIST-GLOST TILE SHADER [address] [place] [address] [facility] Start: 01-01-2024 End: 01-01-2024 Patient encounter procedure [facility] Start: 12-21-2023 End: 12-20-2024 MG Breast Diagnostic Mammography diagnostic bilateral with CAD Imaging Routine Breast pain, left Expected: 12/21/2023, Expires: 12/20/2024 [facility] Work Phone: Comment on above: Expected: 12/21/2023 , Expires: 12/20/2024 Start: 12-20-2023 End: 12-20-2023 Patient encounter procedure 12/20/2023 3:30 PM EDT Office Visit [facility] [address] [place] [address] [facility] Start: 12-20-2023 End: 12-19-2024 Chlamydia/GC by PCR Debbie Swab Chlamydia/GC by PCR Debbie Swab Microbiology Routine Screening for STD (sexually transmitted disease) Expected: 12/20/2023 (Approximate), Expires: 12/19/2024 [employer] Work Phone: Comment on above: Expected: 12/20/2023 (Approximate), Expires: 12/19/2024 Start: 12-20-2023 End: 12-19-2024 MG Breast duct - left Views W contrast intra duct Mammography diagnostic unilateral left with CAD Imaging Routine Breast pain, left Expected: 12/20/2023, Expires: 12/19/2024 [facility] Comment on above: Expected: 12/20/2023 , Expires: 12/19/2024 Start: 12-20-2023 End: 12-19-2024 Trichomonas by PCR Trichomonas by PCR Microbiology Routine Screening for STD (sexually transmitted disease) Expected: 12/20/2023 (Approximate), Expires: 12/19/2024 [facility] Comment on above: Expected: 12/20/2023 (Approximate), Expires: 12/19/2024 Start: 12-20-2023 End: 12-19-2024 US Breast - left limited Ultrasound breast limited left Imaging Routine Breast pain, left Expected: 12/20/2023, Expires: [facility] Comment on above: Expected: 12/20/2023 , Expires: 12/19/2024 Start: 11-14-2023 Adult BMI Follow Up Plan Adult BMI Follow Up Plan [facility] Start: 11-14-2023 Depression Screening Depression Scre ening [facility] Start: 10-28-2023 Influenza vaccination Influenza Vacc ine [facility] Start: 09-27-2023 End: 09-27-2023 ambulatory 09/27/2023 8:30 AM EDT Nurse Injection [facility] [address] [place] [address] [facility] Start: 07-11-2023 End: 07-11-2023 ambulatory 07/11/2023 8:15 AM EDT Nurse Injection [facility] [address] [place] [address] [facility] Start: 03-17-2023 DTaP,Tdap and Td Vaccines (7 - Td or Tdap) DTaP,Tdap and Td Vaccines (7 - Td or Tdap) [facility] Immunizations Immunization Date Immunization Notes Care Provider Fa cili 11-28-2022 influenza virus vaccine, unspecified formulation [facility] 01-10-2021 SARS-CoV-2 (COVID-19 ) mRNA-1273 vaccine Donna Aleaxndre [facility] Comment on above: Result Comment: 2022: TPVAL 05-21-2020 SARS-CoV-2 (COVID-19 ) mRNA-1273 vaccine Donna Alexandre [facility] Comment on above: Result Comment: 2022: TPV23 04-21-2020 SARS-CoV-2 (COVID-19 ) mRNA-1273 vaccine Donna Alexandre [facility] Comment on above: Result Comment: 2022: TPV23 01-25-2019 influenza virus vaccine, unspecified formulation Donna Alexandre [facility] 03-17-2013 influenza virus vaccine, unspecified formulation Donna Alexandre [facility] 03-17-2013 measles, mumps and rubella virus vaccine Donna Alexandre [facility] 03-17-2013 tetanus toxoid, redu jose diphtheria toxoid, and acellular pertussis vaccine, adsorbed Donna Alexandre [facility] 06-19-2010 tetanus toxoid, redu jose diphtheria toxoid, and acellular pertussis vaccine, adsorbed Donna Alexandre [facility] 04-14-1999 measles, mumps and rubella virus vaccine Donna Alexandre [facility] 09-30-1990 Hib, unspecified formulation Donna Alexandre [facility] 09-30-1990 measles, mumps and rubella virus vaccine Donna Alexandre [facility] Payers Date Payer Category Payer Private Health Insurance [id number] 2010 Managed Care Other (unspecified) [id number] 2010 Private Health Insurance [facility] PLUS [id number] 2010-Present [phone] [address] [address] [place] [address] [id number] 2010 Private Health Insurance [id number] 2002 Medicaid [place] [employer] [place] [employer] [id number] 2002-Present [phone] [address] [place] [address] [id number] 1987 Unknown [id number] 2.16.840.1.328825.3.579.2. 593 1987 Unknown [id number] 2.16.840.1.545283.3.579.2. 727 1987 Unknown [id number] 2.16.840.1.398302.3.579.2. 727 1987 Unknown [id number] 2.16.840.1.752868.3.579.2. 727 1987 Unknown [id number] 2.16.840.1.746873.3.579.2. 1286 1987 Unknown [id number] 2.16.840.1.915850.3.579.2. 1285 1987 Unknown [id number] 2.16.840.1.685465.3.579.2. 1286 1987 Unknown [id number] 2.16.840.1.262062.3.579.2. 1285 1987 Unknown [id number] 2.16.840.1.806702.3.579.2. 1285 1987 Unknown [id number] 2.16840.1.688824.3.579.2. 1285 1987 Unknown [id number] 2.16.840.1.436931.3.579.2. 1285 1987 Unknown [id number] 2.16.840.1.768285.3.579.2. 1285 1987 Unknown [id number] 2.16.840.1.971356.3.579.2. 1285 1987 Unknown [id number] 2.16840.1.097755.3.579.2. 1285 1987 Unknown [id number] 2.16.840.1.825949.3.579.2. 1286 1959 Unknown [id number] Social History Date Type Detail Facility Start: 03-28-2022 End: 09-06-2022 Tobacco smoking status Never smoked tobacco (finding) [facility] Tobacco smoking status Never Dominique [facility] Start: 03-24-2020 End: 12-20-2023 Sex Assigned At Female [facility] Start: 03-28-2022 Tobacco use and exposure Smokeless tobacco non-user [facility] Start: 12-20-2023 End: 01-01-2024 Alcoholic beverage intake Current drinker of alcohol (finding) [facility] Start: 03-24-2020 End: 12-20-2023 History of Social function [facility] How often to you hav e a drink containing alcohol? 2-4 times a month [facility] How many standard drinks containing alcohol do you have on a typical day? 1 or 2 [facility] How often do you hav e 6 or more drinks on 1 occasion? Never [facility] Start: 03-05-2017 Alcohol Comment occasional [facility] Start: 1987 Sex assigned at Female [facility] Start: 10-01-2014 Sex Female (finding) [facility] Start: 02-21-2021 Gender identity Identifies as female gender (finding) [facility] Start: 02-21-2021 Sexual orientation Heterosexual (fin ding) [facility] How often to you hav e a drink containing alcohol? Monthly or less [facility] Work Phone: Clinical Notes 09-06-2022 to 03-07-2024 Minal Daley CMA - 03/07/2024 8:00 AM THOMAS Chairez - 03/07/2024 8:00 AM ESTTelephone Encounter - Ana Maria Do - 12/21/2023 10:00 AM EDT Note Date & Type Note Facility 03-07-2024 History of Present illness Narrative Patient is here for DepoProvera IM administration. Medical history reviewed. Pt denies abnormal bleeding, concerns related to Depo. Injection administered to ___Right gluteal . Pt tolerated well, no adverse reactions noted. Patient to return to clinic for next Depo Administration in 10-12 weeks or PRN. Depo calendar given. Patient here for depo provera, not seen by provider. Depo administered by MA / nurse and patient tolerated well. 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 THOMAS Hinojosa 03/07/24 0850 documented in this encounter [facility] 12-21-2023 Miscellaneous Notes Received a call from Asmita in Central Scheduling. The patient's mammogram order needs to be bilateral diagnostic since the patient has never had a mammogram done before. Thank you. Order placed. RODOLFO Gutierrez, RN documented in this encounter [facility] 12-21-2023 Telephone encounter Note Received a call from Asmita in Central Scheduling. The patient's mammogram order needs to be bilateral diagnostic since the patient has never had a mammogram done before. Thank you. [facility] 12-21-2023 Telephone encounter Note Order placed. RODOLFO Gutierrez, RN [facility] 12-20-2023 History of Present illness Narrative Annual Well Woman Visit 12/20/2023 Clint Wright is a pleasant 38 y.o. female who presents for annual mortuary beautician exam. Periods are non existent due to Depo-Provera injections. Has some intermenstrual bleeding, spotting, or abnormal discharge. no pelvic pain. Patient desires STD testing today, vaginal cultures only. Pt. States she has been on depo provera almost 10yrs. Pt. 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 SUSHLIA FARRIS CLINICAL LABORATORY SCIENTIST, CNM SHASTA Jerry 12/20/23 1743 documented in this encounter [facility] 10-04-2023 History of Present illness Narrative Patient is here for DepoProvera IM administration. Medical history reviewed. Pt denies abnormal bleeding, concerns related to Depo. Urine test negative. Injection administered to ____RUQ . Pt tolerated well, no adverse reactions noted. Patient to return to clinic for next Depo Administration in 10-12 weeks or PRN. Depo calendar given. Pt is here for scheduled Depo injection. Not seen by provider. THOMAS Taylor 10/04/23 0936 documented in this encounter [facility] 07-11-2023 History of Present illness Narrative Patient is here for DepoProvera IM administration. Medical history reviewed. Pt denies abnormal bleeding, concerns related to Depo. Urine test negative. Injection administered to ____Left gluteal . Pt tolerated well, no adverse reactions noted. Patient to return to clinic for next Depo Administration in 10-12 weeks or PRN. Depo calendar given. documented in this encounter [facility] 04-18-2023 History of Present illness Narrative Patient is here for DepoProvera IM administration. Medical history reviewed. Pt denies abnormal bleeding, concerns related to Depo. Urine test negative. Injection administered to __RUQ . Pt tolerated well, no adverse reactions noted. Patient to return to clinic for next Depo Administration in 10-12 weeks or PRN. Depo calendar given. documented in this encounter [facility] 09-06-2022 Evaluation + Plan note Diagnostic Tests PendingCBC w/ Auto Diff 09/06/22Comprehensive Metabolic Panel 09/06/22Lipid Panel 09/06/22Thyroid Stimulating Hormone 09/06/[id number] 09/06/22 [facility] Evaluation note Diagnosis Encounter for surveillance of injectable contraceptive- Primary [facility] Encounter for surveillance of injectable contraceptive- Primary [facility] Diagnosis Well woman exam with routine gynecological exam- Primary Routine gynecological examination Screening for STD (sexually transmitted disease) Encounter for surveillance of injectable contraceptive Breast pain, left [facility] Breast pain, left- Primary [facility] No data available for this [facility] No data available for this section [facility] filedocumented in this encounter [facility]ructionsNot on filedocumented in this encounter [facility]ructionsNot on filedocumented in this encounter [facility]ructionsNot on filedocumented in this encounter [facility] No data available for this section [facility] Summary Purpose Family History No Family [...] and content) DATE CREATED AUTHOR 11/01/2020 [facility] DATE CREATED AUTHOR AUTHOR'S ORGANIZ ATION 09/01/2023 [facility] DATE CREATED AUTHOR AUTHOR'S ORGANIZ ATION 12/22/2023 [facility] DATE CREATED AUTHOR AUTHOR'S ORGANIZ ATION 01/03/2024 [facility] DATE CREATED AUTHOR AUTHOR'S ORGANIZ ATION 03/12/2024 [facility] Patient Care team informatio n (unrecognized section and content) [employer] Relationship Specialty Start Date End Date Donna Felton, CLINICAL LABORATORY SCIENTIST-GLOST TILE SHADER [address] [place] [id number] PCP - General Nurse Practitioner 03/24/23 [employer] Relationship Specialty Start Date End Date AlexandreDonna, CLINICAL LABORATORY SCIENTIST-GLOST TILE SHADER [address] [place] [id number] PCP - General Nurse Practitioner 03/24/23 [employer] Relationship Specialty Start Date End Date Donna Felton, CLINICAL LABORATORY SCIENTIST-GLOST TILE SHADER [address] [place] [id number] PCP - General Nurse Practitioner 03/24/23 [employer] Relationship Specialty Start Date End Date Donna Felton, CLINICAL LABORATORY SCIENTIST-GLOST TILE SHADER [address] [place] [phone] PCP - General Nurse Practitioner 03/24/23 Reason for Visit (unrecogniz ed section and content) Reason Comments Contraception Reason Comments Contraception Pt is here for [...] BE BASED ON THE PRIMARY CLINICAL RECORDS. [employer] [facility]. provides no warranty or guarantee of the accuracy or completeness of information in this document.
== END 2024-04-16 15:17 | disposition home or self-care (01) ==
LOC: RAD 15:16
PROVIDERS: PCP Nurse Practitioner; Visit Provider Podiatrist Foot & Ankle Surgery
DX: M79.672 Pain in left foot (principal); Z98.890 Other specified postprocedural states
CPT/HCPCS: 73630